=== PATIENT | male | born 1945 | race Caucasian/White ===

== ENCOUNTER 2022-12-13 08:57 | Outpatient (CLI) | payer MEDICARE, SELFPAY ==
--- NOTE | ~2022-12-13 | CT_ITS ---
EXAMINATION: CT soft tissue neck w con DATE: 12/13/2022 10:14 INDICATION: Squamous cell carcinoma of skin of scalp and neck. TECHNIQUE: Computed tomography (CT) of the neck was performed with 100 mL Omnipaque-350 intravenous c ontrast. Automated exposure control and iterative reconstruction technique were employed. The dose-le ngth product was 554.53 mGy-cm. COMPARISON: None FINDINGS: The visualized portions of the lung apices demonstrate peripheral septal thickening and beti undglass opacities. There are no pathologically enlarged lymph nodes. There is plaque in the proximal internal carotid arteries with 0% stenosis relative to normal distal artery lumen diameters. There a re likely changes of right ocular lens replacement surgery. There is moderate cervical spondylosis. T here are changes of anterior fusion procedure from C7 to T2. There are changes of posterior fusion pr ocedure from C4 to T3. Mediastinal wires are noted. IMPRESSION: 1. No evidence of metastatic disease. Reviewed, dictated and finalized at location A.
--- NOTE | ~2022-12-13 | CT_ITS ---
Pre and postcontrast Head CT History: Squamous cell carcinoma Technique: Axial imaging of the brain was performed prior to and following intravenous demonstration of 100 cc of Omnipaque 350 contrast material. Dose reduction technique was used on this scan by util izing automated exposure control and iterative reconstruction technique. The dose-length product (DLP ) was 1362.00 mGy-cm. Findings: There is no evidence of intracranial hemorrhage, mass lesion, or acute infarct. Brain par enchyma appears normal. The ventricles and subarachnoid spaces are normal in size. The calvarium ap pears normal. The visualized paranasal sinuses and mastoid air cells are clear. No abnormal postcontrast enhancement identified. Impression: No significant abnormality seen. Reviewed, dictated and finalized at [facility]. Impression: No significant abnormality seen.
[2022-12-13 09:57] LABS: Estimated Glomerular Filt Rate > 60
== END 2022-12-13 08:58 | disposition home or self-care (01) ==
DX: C44.42 Squamous cell carcinoma of skin of scalp and neck (principal)
CPT/HCPCS: 70470; 70491; Q9967

== ENCOUNTER 2022-12-29 03:17 | Inpatient (IN) | payer MEDICARE, SELFPAY ==
[2022-12-29] VITALS (12 sets, daily range): BP systolic 154–175; BP diastolic 72–104; PULSE 60–100; RESP 12–22; TEMP 36.3–37.1; O2SAT 92–97
--- NOTE | ~2022-12-29 | XR_ITS ---
EXAMINATION: XR ERCP DATE: 12/30/2022 14:01 INDICATION: Choledocholithiasis. TECHNIQUE: 2 spot fluoroscopic images of the right upper quadrant were obtained during endoscopic ret rograde cholangiopancreatography (ERCP). Fluoroscopy exposure time was 109 seconds. COMPARISON: CT abdomen and pelvis 12/29/2022 FINDINGS: The catheter is in the second portion of the duodenum. There is contrast opacification of t he common duct. There are stones in the common duct. IMPRESSION: 1. Choledocholithiasis. Please refer to the ERCP procedure note for additional details. Reviewed, dictated and finalized at location A.
--- NOTE | ~2022-12-29 | CT_ITS ---
CT of the Abdomen and Pelvis: Indication: Small bowel obstruction Technique: 2.5 mm axial scans were obtained through the abdomen and pelvis following intravenous adm inistration of 100 cc of Omnipaque 350. Dose reduction technique was used on this scan by utilizing a utomated exposure control and iterative reconstruction technique. The dose-length product (DLP) was 9 21.83 mGy-cm. Findings: Scans through the lung bases demonstrates subpleural reticulation and mild peripheral inte rstitial thickening, consistent mild chronic interstitial disease. There is a 6 mm pulmonary nodule a t the left lower lobe (axial image 15).. Multiple small hepatic cysts are present. There are numerous small radiodense gallstones. There are s mall radiodense gallstones at the distal common bile duct (axial images 72-76). There is minimal intr ahepatic biliary dilatation. Common bile duct measures 8 mm in diameter. There is minimal peripancrea tic inflammatory haziness. The spleen, adrenals and kidneys are within normal limits. There are ather osclerotic calcifications of the aorta. No lymphadenopathy. No bowel obstruction or bowel wall thickening. There is no evidence to suggest acute appendicitis. Si gmoid diverticulosis noted. Images through the pelvis were performed. Urinary bladder unremarkable. Prostate gland is mildly enla rged. No ascites. Impression: Cholelithiasis and choledocholithiasis, as detailed above. Probable associated mild acute gallstone pancreatitis. There is also minimal intrahepatic biliary dil atation is minimal prominence of the common bile duct. 6 mm left lower lobe pulmonary nodule. According to Fleischner Society criteria, for a low-risk patie nt, follow-up CT scan at 6-12 months recommended, then consider additional 18-[address] For a high -risk patient, follow-up CT scans at both 6-12 months and 18-24 months are recommended. Mild bibasilar chronic pulmonary interstitial disease. Reviewed, dictated and finalized at location M. Impression: Cholelithiasis and choledocholithiasis, as detailed above. Probable associated mild acute gallstone pancreatitis. There is also minimal in trahepatic biliary dilatation is minimal prominence of the common bile duct. 6 mm left lower lobe pulmonary nodule. According to Fleischner Society criteria , for a low-risk patient, follow-up CT scan at 6-12 months recommended, then co nsider additional 18-[address] For a high-risk patient, follow-up CT scans a t both 6-12 months and 18-24 months are recommended. Mild bibasilar chronic pulmonary interstitial disease.
[2022-12-29] MEDS: ONDANSETRON INJ 4 MG/2 ML VIAL IV PUSH (03:57)
[2022-12-29] MEDS: MORPHINE SULFATE (*CRX) 4 MG/ML INJ IV PUSH (03:57)
[2022-12-29] MEDS: SODIUM CHLORIDE 0.9% IV 1,000 ML 150 ML IV CONT (03:57)
[2022-12-29 04:03] LABS: Basophils Absolute Auto 0.1 K/mm3 (0.0-0.1); Basophils Percent Auto 0.6 % (0.2-1.2); Eosinophils Absolute Auto 0.1 K/mm3 (0-0.3); Eosinophils Percent Auto 1.3 % (0-4.4); Hematocrit 48.1 % (42.0-52.0); Hemoglobin 15.2 g/dL (14.0-18.0); Immature Granulocyte Absolute 0.04 K/mm3 (0.00-0.031); Immature Granulocyte Percent A 0.4 % (0-0.5); Lymphocytes Absolute Auto 2.04 K/mm3 (0.9-3.2); Lymphocytes Percent Auto 18.3 % (18.3-44.2); Mean Corpuscular HGB Conc 31.6 g/dl (32-36); Mean Corpuscular Hemoglobin 28.7 pg (26-34); Mean Corpuscular Volume 90.9 fl (80-100); Monocytes Absolute Auto 1.2 K/mm3 (0.1-0.6); Monocytes Percent Auto 10.5 % (2.6-8.5); Neutrophils Absolute Auto 7.7 K/mm3 (1.3-6.7); Neutrophils Percent Auto 68.9 % (45.5-73.1); Platelet Count Result 313 k/mm3 (150-375); Red Blood Count 5.29 M/mm3 (4.6-6.20); Red Cell Distribution Width 15.1 % (11.5-14.5); White Blood Count 11.2 K/mm3 (4.5-10.0)
[2022-12-29 04:15] LABS: Prothrombin Time 13.7 Seconds (11.1-14.7)
[2022-12-29 04:19] LABS: Lactic Acid Reflex 1.3 mmol/L (0.7-2.0)
[2022-12-29 04:33] LABS: Albumin Level 4.1 g/dL (3.5-5.1); Alkaline Phosphatase 357 U/L (38-126); Anion Gap 1 mmol/L (8-16); Bilirubin,Total 2.2 mg/dL (0.2-1.3); Blood Urea Nitrogen 18 mg/dL (9-20); Calcium 9.5 mg/dL (8.4-10.2); Carbon Dioxide 37 mmol/L (22-30); Chloride 103 mmol/L (98-107); Estimated CRCL calculation 68 ml/min; Estimated Glomerular Filt Rate > 60; Glucose 133 mg/dL (65-110); Potassium 4.1 mmol/L (3.4-5.0); Sodium 141 mmol/L (137-145)
[2022-12-29 04:36] LABS: Alanine Aminotransferase 878 U/L (6-50); Aspartate Amino Transferase 1053 U/L (17-59)
[2022-12-29 05:13] LABS: Lipase > 40000 U/L (23-300)
--- NOTE | 2022-12-29 05:38 | ED.ABDPAIN ---
HPI - Abdominal Pain General Chief Complaint: Abdominal Pain Stated Complaint: abd pain Time Seen by Provider: 12/29/22 03:36 Source: patient and family Mode of arrival: ambulatory Limitations: no limitations History of Present Illness HPI narrative: 77-year-old with a history of hypertension, AF on Eliquis, thoracic vertebrae surgery done in June 2022 in [place] presents here with complaints of upper abdominal pain which started about 4:30 PM last night. Patient states that over the past few months since he had his neck surgery he has been having intermittent upper abdominal pain which gets relieved with Pepcid however today his pain has been steady. No history of fever or chills. No history of any chest pain or shortness of breath. mentions that he gets most of his care in [place]. Patient's also mentioned he had a fever of 101 approximately 4 days ago which lasted for few hours. Pertinent past history: none Onset (ago): hour(s) (8) Pain Consistency: constant Location: epigastric, LUQ and RUQ Severity: severe Quality: cramping Radiation: none Migration to: no migration Exacerbating factors: eating Associated symptoms: denies other symptoms Related Data Home Medications Medication Instructions Recorded Confirmed apixaban 5 mg tablet (Eliquis) mg 12/29/22 metoprolol succinate 50 mg mg PO 12/29/22 tablet,extended release 24 hr pravastatin 20 mg tablet mg 12/29/22 12/29/22 Allergies Allergy/AdvReac Type Severity Reaction Status Date / Time No Known Allergies Allergy Verified 12/29/22 03:18 Review of Systems Review of Systems: All systems reviewed & are unremarkable except as noted in HPI and below Constitutional: Constitutional: Reports no additional constitutional complaints Eyes: Eyes: Reports no additional eye complaints ENT: Reports system reviewed and no additional complaints, except as documented Cardiovascular: Cardiovascular: Reports no additional cardiovascular complaints Respiratory: Respiratory: Reports no additional respiratory complaints Gastrointestinal: Gastrointestinal: Reports as per HPI Musculoskeletal: Musculoskeletal: Reports no additional musculoskeletal complaints Neurologic: Reports system reviewed and no additional complaints, except as documented Exam Narrative: GENERAL: Well-appearing, well-nourished, and in no acute distress. HEAD: Normocephalic, atraumatic. EYES: PERRLA and EOMI. ENT: Nares clear. Mucous membranes moist. NECK: Supple. CHEST: Clear to auscultation. No respiratory distress. HEART: Regular rate and rhythm. No murmur heard. Normal peripheral pulses. ABDOMEN: Soft, tender in the upper abdomen, nondistended, normal active bowel sounds. EXTREMITIES: Normal range of motion. No edema. SKIN: Warm, dry, no rash. NEURO: No focal deficits. Alert and oriented x3. PSYCH: Normal mood and affect. Course Course Emergency Course: 77-year-old presented with upper abdominal pain for the last 8 hours started after eating his dinner tender on examination he is in moderate amount of pain. Give him IV morphine for pain and Zofran for nausea obtain lab work his lipase is greater than 40,000 his liver enzymes are elevated CT shows obstructive gallstones. Discussed with Dr. Jackson, Dr. Casarez and Dr. Tierney. Informed patient and his about the lab work, CT findings agreeable for admission Vital Signs Vital signs: Vital Signs Temperature 36.3 C L 12/29/22 03:18 Pulse Rate 60 12/29/22 03:18 Respiratory Rate 20 12/29/22 03:18 Blood Pressure 154/104 H 12/29/22 03:18 Pulse Oximetry 96 12/29/22 03:18 Oxygen Delivery Room Air 12/29/22 03:18 Temperature 36.3 C L 12/29/22 03:18 Pulse Rate 96 12/29/22 06:23 Respiratory Rate 19 12/29/22 06:23 Blood Pressure 163/83 H 12/29/22 06:23 Pulse Oximetry 93 12/29/22 06:23 Oxygen Delivery Room Air 12/29/22 03:18 MDM - Abdominal Pain MDM Narrative Medical decision making
[2022-12-29] MEDS: PIPERACILLN/TAZ 3.375GM/NS50ML 3.375 GM/50 ML BAG IVPB ×3 (05:50→18:16)
--- NOTE | 2022-12-29 11:12 | PM.IMHP ---
H&P: HPI History of Present Illness Date/Time: 12/29/22 11:12 Chief Complaint: 77-year-old with a history of hypertension, AF on Eliquis, thoracic vertebrae surgery done in June 2022 in [place] presents here with complaints of upper abdominal pain which started about 4:30 PM last night.? Patient states that over the past few months since he had his neck surgery he has been having intermittent upper abdominal pain which gets relieved with Pepcid however today his pain has been steady.? No history of fever or chills.? No history of any chest pain or shortness of breath.? mentions that he gets most of his care in [place].? Patient's also mentioned he had a fever of 101 approximately 4 days ago which lasted for few hours. Review of Systems Review of Systems: 10 point ROS negative except as stated in HPI / Subjective PMFSH Social History Social History Smoking status: Former smoker Tobacco type: cigarettes Alcohol intake: current Drinks per week: 7 Substance use: never Lack of Transportation: No Lack of Food: Never True Current Housing: I Have Housing Concerned About Future Housing: No Difficulty Paying Gas/Electric Bills: No Difficulty Paying for Meds: No Currently Unemployed: No Education: Bachelor's Degree Difficulty w/ Childcare or Family Care: No Spiritual care concerns: No Meds Home Medications and Allergies Home Medications Medication Instructions Recorded Confirmed Type apixaban 5 mg tablet (Eliquis) 5 mg DAILY 12/29/22 12/29/22 History metoprolol succinate 50 mg 50 mg PO DAILY 12/29/22 12/29/22 History tablet,extended release 24 hr pravastatin 20 mg tablet 20 mg DAILY 12/29/22 12/29/22 History Allergies Allergy/AdvReac Type Severity Reaction Status Date / Time No Known Allergies Allergy Verified 12/29/22 03:18 Vital Signs Vital Signs - 24 hr 12/29/22 03:18 12/29/22 05:15 12/29/22 06:23 Temperature 97.3 F L Pulse Rate 60 99 96 Respiratory Rate 20 17 19 Blood Pressure 154/104 H 175/74 H 163/83 H Pulse Oximetry 96 97 93 Oxygen Delivery Room Air 12/29/22 07:18 12/29/22 08:00 06/01/23 09:08 Temperature 98.7 F Pulse Rate 100 97 Respiratory Rate 20 16 Blood Pressure 169/91 H 156/87 H Pulse Oximetry 93 94 93 Oxygen Delivery Room Air Exam Narrative: General: alert and oriented Psych: appropriate mood nad affect Eyes: PERRLA Neck: Trachea midline, no new lesions Skin: no changes Lungs: CTA Cardiac: Normal S1,S2, no MGR ABD: soft, nd, nt, nbs Ext: no new lesions, no cce Vasc: Pulses intact H&P: Results Labs Labs: Short CBC 12/29/22 Range/Units 03:56 WBC 11.2 H (4.5-10.0) K/mm3 Hgb 15.2 (14.0-18.0) g/dL Hct 48.1 (42.0-52.0) % Plt Count 313 (150-375) k/mm3 BMP 12/29/22 03:56 Sodium 141 Potassium 4.1 Chloride 103 Carbon Dioxide 37 H BUN 18 Creatinine 0.90 Glucose 133 H Calcium 9.5 Liver Function 12/29/22 Range/Units 03:56 Total Bilirubin 2.2 H (0.2-1.3) mg/dL AST 1053 H (17-59) U/L ALT 878 H (6-50) U/L Alkaline Phosphatase 357 H (38-126) U/L Albumin 4.1 (3.5-5.1) g/dL Assessment and Plan Assessment and plan (1) Choledocholithiasis with acute cholecystitis with obstruction: Code(s): K80.43 - Calculus of bile duct with acute cholecystitis with obstruction Status: Acute Assessment and Plan: appreciate gi and surgery input npo continue ivf pain control (2) Atrial fibrillation: Code(s): I48.91 - Unspecified atrial fibrillation Status: Acute Assessment and Plan: continue bb eliquis on hold
--- NOTE | 2022-12-29 11:25 | PM.CNGS ---
Assessment and Plan Assessment and plan (1) Acute pancreatitis due to calculus of common bile duct: Code(s): K85.10 - Biliary acute pancreatitis without necrosis or infection <Verito Humphreys SUPERVISOR [employer]ANDING - Last Filed: 12/29/22 14:36> Status: Acute <Verito BJace Humphreys, SUPERVISOR [employer]ANDING - Last Filed: 12/29/22 14:36> Assessment and Plan: Acute biliary pancreatitis with CT evidence of cholelithiasis and choledocholithiasis. Lipase >40k. Continue IV fluids, bowel rest, and analgesics as needed. Trend labs. Agree with GI consultation for possible ERCP. Discussed with the patient that he will eventually need a laparoscopic cholecystectomy, but timing of surgery depends on resolution of the pancreatitis and his overall progression for this hospitalization. <Verito Humphreys SUPERVIS[employer]ING - Last Filed: 12/29/22 14:36> (2) Cholelithiasis with choledocholithiasis: Code(s): K80.70 - Calculus of gallbladder and bile duct without cholecystitis without obstruction <Verito Stone Humphreys SUPERVISOR [employer]ANDING - Last Filed: 12/29/22 14:36> Status: Acute <Verito BJace Humphreys, SUPERVISOR [employer]ANDING - Last Filed: 12/29/22 14:36> (3) Transaminitis: Code(s): R74.01 - Elevation of levels of liver transaminase levels <Verito BJace Humphreys, SUPERVISOR [employer]ANDING - Last Filed: 12/29/22 14:36> Status: Acute <Verito BJace Humphreys, SUPERVISOR [employer]ANDING - Last Filed: 12/29/22 14:36> Assessment and Plan: Likely related to biliary obstruction from the choledocholithiasis. Trend labs. GI consulted. <Verito Stone Humphreys SUPERVIS[employer]ING - Last Filed: 12/29/22 14:36> (4) Atrial fibrillation: Code(s): I48.91 - Unspecified atrial fibrillation <Verito Stone Humphreys SUPERVIS[employer]ING - Last Filed: 12/29/22 14:36> Status: Acute <Verito BJace Humphreys, SUPERVIS[employer]ING - Last Filed: 12/29/22 14:36> (5) Anticoagulant long-term use: Code(s): Z79.01 - jail (current) use of anticoagulants <Verito العراقيRAFFI workman - Last Filed: 12/29/22 14:36> Status: Acute <Verito العراقيRAFFI workman - Last Filed: 12/29/22 14:36> Assessment and Plan: Hold Eliquis for now. <Verito العراقيRFAFI workman - Last Filed: 12/29/22 14:36> Assessment and Plan: I have discussed the patient's case and plan of care with Dr. Tierney. Thank you for allowing us to see the patient in consultation and we will continue to follow along with you. <Verito JohnJace العراقيRAFFI workman - Last Filed: 12/29/22 14:36> History of Present Illness Consult details Consult date: 12/29/22 <RAFFI Sinclair - Last Filed: 12/29/22 14:36> 12/29/22 <Hallie Tierney MD - Last Filed: 12/29/22 14:38> Reason for consult: gallstones (Acute biliary pancreatitis, choledocholithiasis) <Verito Ritter MalcomRAFFI workman - Last Filed: 12/29/22 14:36> Requesting physician: Saturnino Schmidt MD <RAFFI Sinclair - Last Filed: 12/29/22 14:36> Narrative: This is a 77-year-old man who presented to the ER early this morning with complaints of epigastric pain. The patient had thoracic surgery back in June of 2022. He was hospitalized in [place] for a few weeks following his 2 surgeries. About 2 months ago, he began to notice epigastric pain and heartburn intermittently. He he felt that the pain occurred after drinking liquids, but did not pay much attention to it if he had eaten food. The pain would typically subside spontaneously, but progressively got more frequent. He began taking Pepcid for his symptoms, which initially helped. Yesterday afternoon, he ate a fried egg and drink orange juice. Shortly after eating, he developed that same epigastric abdominal pain. His pain began to radiate up into his mid chest. The pain progressively worsened over the night. He attempted to vomit, but was only having dry heaves. His pain became unbearable and he was unable to sleep, therefore he came into the ER for further evaluation. Labs showed a lipase of greater than 40,000, total bilirubin 2.2, AST a 1053, ALT 878, alk-phos 357, white blood cell count [address]71. CT scan
[2022-12-29] MEDS: SODIUM CHLORIDE 0.9% IV 1,000 ML 125 ML IV CONT ×2 (12:27→22:33)
--- NOTE | 2022-12-29 15:21 | WPDGICN ---
Assessment and Plan Assessment and plan (1) Acute pancreatitis due to calculus of common bile duct: Code(s): K85.10 - Biliary acute pancreatitis without necrosis or infection Status: Acute Assessment and Plan: CT scan shows choledocholithiasis. The enzyme elevation support that etiology of pancreatitis. He does drink alcohol regularly, he likes a glass or 2 of wine and summer been most days of the week. He has never had alcohol related problem and had never had pancreatitis to his knowledge in the past. I discussed with him ERCP and how stones are removed from the common bile duct. I discussed the possible complications of bleeding or perforation or pancreatitis. He also knows that he has gallstones that will need to be addressed by surgery at some point (2) Anticoagulant long-term use: Code(s): Z79.01 - halfway (current) use of anticoagulants Status: Acute Assessment and Plan: he takes Eliquis chronically for atrial fibrillation. His last dose was yesterday. (3) Atrial fibrillation: Code(s): I48.91 - Unspecified atrial fibrillation Status: Acute Assessment and Plan: He has chronic atrial fibrillation. His ventricular rate is in the 90s. (4) Choledocholithiasis with acute cholecystitis with obstruction: Code(s): K80.43 - Calculus of bile duct with acute cholecystitis with obstruction Status: Acute Assessment and Plan: ERCP will be done tomorrow. I do not see a need for MRCP. (5) Transaminitis: Code(s): R74.01 - Elevation of levels of liver transaminase levels Status: Acute Assessment and Plan: I suspect that most of this elevation of enzymes is due to coli dough cholelithiasis. Time will tell and these will need to be observed. Given the fact that he drinks regularly there could be a a chronic elevation of some sort of these LFTs. Plan Hold Eliquis ERCP tomorrow GI Consult Note Consult date/time: 12/29/22 15:21 HPI: Rafael Santiago is a 77 year old male who presented to the emergency room this morning with abdominal pain and nausea. He states that he has been having episodes of indigestion ever since he had neck surgery about 6 months ago. He would get relief with Pepcid or occasionally with Tums. This time the pain did not subside and gradually increase. Is primarily pain in the epigastric area and left upper quadrant. he did also have a fever yesterday. Studies done in the emergency room revealed that he has a marked elevation of lipase could 40,000 also AST and ALT 53 again 8 78 respect bilirubin is 2.2 alkaline phosphatase is elevated as well. Among other things, his CT scan reveals: Multiple small hepatic cysts are present. There are numerous small radiodense gallstones. There are small radiodense gallstones at the distal common bile duct (axial images 72-76). There is minimal intrahepatic biliary dilatation. Common bile duct measures 8 mm in diameter. There is minimal peripancreatic inflammatory haziness. The spleen, adrenals and kidneys are within normal limits. There are atherosclerotic calcifications of the aorta.? No lymphadenopathy. No bowel obstruction or bowel wall thickening. There is no evidence to suggest acute appendicitis. Sigmoid diverticulosis noted. Review of Systems Review of Systems: All systems reviewed & are unremarkable except as noted in HPI and below PMFSH Past Medical History Medical History History of atrial fibrillation 1 episode of atrial fibrillation after having back surgery in June of 2022. Placed on Eliquis at that time. Hyperlipidemia Hypertension Surgical History Surgical History History of back surgery Social History Social History Smoking status: Former smoker Tobacco type: cigarettes Alcohol int
[2022-12-30] VITALS (14 sets, daily range): BP systolic 142–178; BP diastolic 73–107; PULSE 51–121; RESP 14–18; TEMP 36.1–36.8; O2SAT 93–100; BMI 32.5
[2022-12-30] MEDS: PIPERACILLN/TAZ 3.375GM/NS50ML 3.375 GM/50 ML BAG IVPB ×3 (00:32→17:27)
[2022-12-30] MEDS: SODIUM CHLORIDE 0.9% IV 1,000 ML 125 ML IV CONT ×2 (05:33→20:03)
[2022-12-30 06:40] LABS: Basophils Absolute Auto 0.1 K/mm3 (0.0-0.1); Basophils Percent Auto 0.7 % (0.2-1.2); Eosinophils Absolute Auto 0.2 K/mm3 (0-0.3); Eosinophils Percent Auto 2.2 % (0-4.4); Hematocrit 45.4 % (42.0-52.0); Hemoglobin 14.1 g/dL (14.0-18.0); Immature Granulocyte Absolute 0.04 K/mm3 (0.00-0.031); Immature Granulocyte Percent A 0.5 % (0-0.5); Lymphocytes Absolute Auto 1.27 K/mm3 (0.9-3.2); Lymphocytes Percent Auto 15.5 % (18.3-44.2); Mean Corpuscular HGB Conc 31.1 g/dl (32-36); Mean Corpuscular Hemoglobin 28.6 pg (26-34); Mean Corpuscular Volume 92.1 fl (80-100); Mean Platelet Volume 9.8 fl (7.4-10.4); Monocytes Percent Auto 11.6 % (2.6-8.5); Neutrophils Absolute Auto 5.7 K/mm3 (1.3-6.7); Neutrophils Percent Auto 69.5 % (45.5-73.1); Platelet Count Result 259 k/mm3 (150-375); Red Blood Count 4.93 M/mm3 (4.6-6.20); Red Cell Distribution Width 15.2 % (11.5-14.5); White Blood Count 8.2 K/mm3 (4.5-10.0)
[2022-12-30 06:58] LABS: Albumin Level 3.6 g/dL (3.5-5.1); Alkaline Phosphatase 311 U/L (38-126); Anion Gap 5 mmol/L (8-16); Aspartate Amino Transferase 448 U/L (17-59); Bilirubin,Total 2.7 mg/dL (0.2-1.3); Blood Urea Nitrogen 15 mg/dL (9-20); Calcium 8.2 mg/dL (8.4-10.2); Carbon Dioxide 31 mmol/L (22-30); Chloride 104 mmol/L (98-107); Estimated CRCL calculation 68 ml/min; Estimated Glomerular Filt Rate > 60; Glucose 100 mg/dL (65-110); Lipase 885 U/L (23-300); Potassium 3.7 mmol/L (3.4-5.0); Sodium 140 mmol/L (137-145)
[2022-12-30 07:12] LABS: Alanine Aminotransferase 848 U/L (6-50)
[2022-12-30] MEDS: METOPROLOL SUCCINATE EXT REL 50 MG TABCR PO (09:51)
--- NOTE | 2022-12-30 12:06 | WPDANESEPPF ---
Anes - Initial Pre Proc Eval Procedure: Operation Date: 12/30/22 12:30 Proposed Procedures p Endoscopic Retro Cholangiopancreatogram - Ra Jackson MD Date/Time: 12/30/22 12:06 Surgeon: Dari Casarez MD Pre Op Diagnosis: Choledocholithiasis w/ obstruction and acute hema Patient Data Age: 77 Gender: M Height: 1.75 m Weight: 100 kg Last Vital Signs Temp 97.6 F 12/30/22 11:13 Pulse 83 12/30/22 11:13 Resp 14 12/30/22 11:13 BP 144/107 H 12/30/22 11:13 Pulse Ox 96 12/30/22 11:13 O2 Del Method Room Air 12/29/22 22:26 Allergies Allergy/AdvReac Type Severity Reaction Status Date / Time No Known Allergies Allergy Verified 12/29/22 03:18 Home Medications Medication Instructions Recorded Confirmed Type apixaban 5 mg tablet (Eliquis) 5 mg DAILY 12/29/22 12/29/22 History metoprolol succinate 50 mg 50 mg PO DAILY 12/29/22 12/29/22 History tablet,extended release 24 hr pravastatin 20 mg tablet 20 mg DAILY 12/29/22 12/29/22 History Laboratory Tests 12/30/22 06:18 WBC 8.2 K/mm3 (4.5-10.0) RBC 4.93 M/mm3 (4.6-6.20) Hgb 14.1 g/dL (14.0-18.0) Hct 45.4 % (42.0-52.0) MCV 92.1 fl (80-100) MCH 28.6 pg (26-34) MCHC 31.1 L g/dl (32-36) RDW 15.2 H % (11.5-14.5) Plt Count 259 k/mm3 (150-375) MPV 9.8 fl (7.4-10.4) Immature Gran % (Auto) 0.5 % (0-0.5) Neut % (Auto) 69.5 % (45.5-73.1) Lymph % (Auto) 15.5 L % (18.3-44.2) Sullivan % (Auto) 11.6 H % (2.6-8.5) Eos % (Auto) 2.2 % (0-4.4) Baso % (Auto) 0.7 % (0.2-1.2) Lymph # (Auto) 1.27 K/mm3 (0.9-3.2) Sullivan # (Auto) 1.0 H K/mm3 (0.1-0.6) Eos # (Auto) 0.2 K/mm3 (0-0.3) Baso # (Auto) 0.1 K/mm3 (0.0-0.1) Abs Immat Gran (auto) 0.04 H K/mm3 (0.00-0.031) Absolute Neuts (auto) 5.7 K/mm3 (1.3-6.7) Absolute Nucleated RBC 0.0 K/mm3 (0.0-0.012) Nucleated RBC % 0.0 % (0.0-0.2) Sodium 140 mmol/L (137-145) Potassium 3.7 mmol/L (3.4-5.0) Chloride 104 mmol/L (98-107) Carbon Dioxide 31 H mmol/L (22-30) Anion Gap 5 L mmol/L (8-16) BUN 15 mg/dL (9-20) Creatinine 0.90 mg/dL (0.7-1.3) Estim Creat Clear Calc 68 ml/min Estimated GFR > 60 (59 - ) Glucose 100 mg/dL (65-110) Calcium 8.2 L mg/dL (8.4-10.2) Total Bilirubin 2.7 H mg/dL (0.2-1.3) AST 448 H U/L (17-59) ALT 848 H U/L (6-50) Alkaline Phosphatase 311 H U/L (38-126) Total Protein 7.0 g/dL (6.3-8.2) Albumin 3.6 g/dL (3.5-5.1) Lipase 885 H U/L (23-300) Patient hx anesthesia problems: none Family hx anesthesia problems: none Results Review: All pre-operative results and documents have been reviewed as part of the pre-operative evaluation. [facility] Past Medical History Medical History History of atrial fibrillation 1 episode of atrial fibrillation after having back surgery in June of 2022. Placed on Eliquis at that time. Hyperlipidemia Hypertension Surgical History Surgical History History of back surgery Social History Social History Smoking status: Former smoker Tobacco type: cigarettes Alcohol intake: current Drinks per week: 7 Substance use: never Lack of Transportation: No Lack of Food: Never True Current Housing: I Have Housing Concerned About Future Housing: No Difficulty Paying Gas/Electric Bills: No Difficulty Paying for Meds: No Currently Unemployed: No Education: Bachelor's Degree Difficulty w/ Childcare or Family Care: No Spiritual care concerns: No Anes - Eval Final PreProcedure Day of Procedure 12/30/22 12:06 Patient weight: obese Heart: regular rate and rhythm Lungs: clear to auscultation Airway: Mallampati scale class III (has de
--- NOTE | 2022-12-30 12:08 | PC.NURSE ---
To GI Lab per edward @ [id number], IV infusing NS. Report given to Lizzy.
[2022-12-30] MEDS: LACTATED RINGERS 1,000 ML 150 ML IV CONT (12:10)
--- NOTE | 2022-12-30 12:31 | PM.IMPN ---
Progress Note: A&P Assessment and Plan (1) Choledocholithiasis with acute cholecystitis with obstruction: Code(s): K80.43 - Calculus of bile duct with acute cholecystitis with obstruction Status: Acute Assessment and Plan: appreciate gi and surgery input Plan for ERCP Labs improving npo continue ivf pain control (2) Atrial fibrillation: Code(s): I48.91 - Unspecified atrial fibrillation Status: Acute Assessment and Plan: continue bb eliquis on hold Subjective Date/time seen: 12/30/22 12:31 Interval history: No complaints Exam Narrative: General: alert and oriented Psych: appropriate mood nad affect Eyes: PERRLA Neck: Trachea midline, no new lesions Skin: no changes Lungs: CTA Cardiac: Normal S1,S2, no MGR ABD: soft, nd, nt, nbs Ext: no new lesions, no cce Vasc: Pulses intact Objective Data Vital Signs Vital Signs: Vital Signs - 24 hr 12/29/22 14:00 12/29/22 16:00 12/29/22 20:00 Temperature 98.3 F 98.7 F Pulse Rate 62 62 78 Respiratory Rate 22 H 14 Blood Pressure 159/79 H 163/83 H Pulse Oximetry 93 95 Oxygen Delivery 12/29/22 20:00 12/29/22 23:52 12/29/22 22:26 Temperature 97.5 F L Pulse Rate 90 Respiratory Rate 12 Blood Pressure 171/72 H Pulse Oximetry 92 93 Oxygen Delivery Room Air Room Air 12/29/22 20:00 12/30/22 00:00 12/30/22 04:00 Temperature Pulse Rate 86 99 76 Respiratory Rate Blood Pressure Pulse Oximetry Oxygen Delivery 12/30/22 04:00 12/30/22 07:37 12/30/22 09:51 Temperature 96.9 F L 97.6 F Pulse Rate 76 57 L 100 Respiratory Rate 14 14 Blood Pressure 168/73 H 163/78 H Pulse Oximetry 95 98 Oxygen Delivery 12/30/22 11:13 12/30/22 09:51 12/30/22 12:06 Temperature 97.6 F 97.9 F Pulse Rate 83 83 51 L Respiratory Rate 14 18 Blood Pressure 144/107 H 165/74 H Pulse Oximetry 96 98 Oxygen Delivery Room Air Intake/Output Intake/Output: Intake & Output 12/27/22 12/28/22 12/29/22 12/30/22 23:59 23:59 23:59 23:59 Intake Total 0 1460 Balance 1930 1460 Meds/Results Medications: Active Medications Generic Name Dose Route Start Last Admin Trade Name Freq PRN Reason Stop Dose Admin Sodium Chloride 1,000 mls @ 125 mls/hr 12/29/22 05:55 12/30/22 05:33 Normal Saline Iv IV CONT 125 mls/hr .Q8H AMENA Administration Piperacillin/Tazobactam/Dextrose 3.375 gm in 50 mls @ 100 mls/hr 12/29/22 12:00 12/30/22 06:00 Zosyn 3.375 Gm/Ns 50 Ml IVPB Infused Q6H AMENA Infusion Lactated Ringer's 1,000 mls @ 150 mls/hr 12/30/22 11:35 12/30/22 12:10 Lr - Lactated Ringers Iv IV CONT 150 mls/hr .Q6H40M AMENA Administration Metoprolol Succinate 50 mg 12/30/22 09:00 12/30/22 09:51 Metoprolol Succinate Ext Rel 50 Mg Tabcr PO 50 mg DAILY AMENA Administration Morphine Sulfate 4 mg 12/29/22 05:53 Morphine Sulfate (*Crx) 4 Mg/Ml Inj IV PUSH Q2H PRN Pain Rated 7-10 Ondansetron HCl 4 mg 12/29/22 05:53 Ondansetron Inj 4 Mg/2 Ml Vial IV PUSH Q4H PRN Nausea Radiology Results: ITS Impressions Abdomen/Pelvis CT 12/29/22 05:55 Impression: Cholelithiasis and choledocholithiasis, as detailed above. Probable associated mild acute gallstone pancreatitis. There is also minimal intrahepatic biliary dilatation is minimal prominence of the common bile duct. 6 mm left lower lobe pulmonary nodule. According to Fleischner Society criteria, for a low-risk patient, follow-up CT scan at 6-12 months recommended, then consider additional 18-[address] For a high-risk patient, follow-up CT scans at both 6-12 months and 18-24 months are recommended. Mild bibasilar chronic pulmonary interstitial disease. Labs Labs: Laboratory Results - last 24 hr 12/30/22 06:18 WBC 8.2 RBC 4.93 Hgb 14.1 Hct 45.4 MCV 92.1 MCH 28.6 MCHC 31.1 L RDW 15.2 H Plt Count 259 MPV 9.8 Immature Gran % (Auto) 0.
[2022-12-30] MEDS: INDOMETHACIN 50 MG SUPP.RECT RECTAL (13:31)
[2022-12-30] MEDS: GLUCAGON FOR INJ 1 MG VIAL IM (13:43)
--- NOTE | 2022-12-30 15:34 | PM.PNGS ---
Progress Note: A&P Assessment and Plan (1) Acute pancreatitis due to calculus of common bile duct: Code(s): K85.10 - Biliary acute pancreatitis without necrosis or infection Status: Acute Assessment and Plan: s/p ERCP and stone removal, exam improved, labs improved, will need interval cholecystectomy (can be done as outpt) (2) Anticoagulant long-term use: Code(s): Z79.01 - [facility] (current) use of anticoagulants Status: Acute Assessment and Plan: ok to resume Eliquis if ok c GI and plan for interval hema as outpt Subjective Subjective Date/Time Seen: 12/30/22 15:34 Interval history: waking up for ERCP, report reviewed, feels ok Review of Systems Review of Systems: All systems reviewed & are unremarkable except as noted in HPI and below Exam Const: General: cooperative, comfortable and no acute distress Resp: Auscultation: clear to auscultation bilaterally Cardio: Rate: regular rate Rhythm: regular rhythm GI: Inspection: normal to inspection and distended GI Palp: Yes abdominal tenderness, Yes Soft to palpation, Yes Tenderness to palpation present (GI), No Guarding due to palpation present (GI) and No Rigid due to palpation Objective Data Vital Signs Vital Signs: Vital Signs - 24 hr 12/29/22 16:00 12/29/22 20:00 12/29/22 20:00 Temperature 37.1 C Pulse Rate 62 78 Respiratory Rate 14 Blood Pressure 163/83 H Pulse Oximetry 95 Oxygen Delivery Room Air Oxygen Flow Rate 12/29/22 23:52 12/29/22 22:26 12/29/22 20:00 Temperature 36.4 C L Pulse Rate 90 86 Respiratory Rate 12 Blood Pressure 171/72 H Pulse Oximetry 92 93 Oxygen Delivery Room Air Oxygen Flow Rate 12/30/22 00:00 12/30/22 04:00 12/30/22 04:00 Temperature 36.1 C L Pulse Rate 99 76 76 Respiratory Rate 14 Blood Pressure 168/73 H Pulse Oximetry 95 Oxygen Delivery Oxygen Flow Rate 12/30/22 07:37 12/30/22 09:51 12/30/22 11:13 Temperature 36.4 C 36.4 C Pulse Rate 57 L 100 83 Respiratory Rate 14 14 Blood Pressure 163/78 H 144/107 H Pulse Oximetry 98 96 Oxygen Delivery Oxygen Flow Rate 12/30/22 09:51 12/30/22 12:06 12/30/22 14:01 Temperature 36.6 C 36.8 C Pulse Rate 83 51 L 80 Respiratory Rate 18 18 Blood Pressure 165/74 H 142/82 H Pulse Oximetry 98 100 Oxygen Delivery Room Air Simple Face Mask Oxygen Flow Rate 4 12/30/22 14:11 12/30/22 14:21 12/30/22 14:30 Temperature Pulse Rate 85 86 80 Respiratory Rate 18 18 18 Blood Pressure 178/103 H 170/90 H 171/83 H Pulse Oximetry 97 100 97 Oxygen Delivery Simple Face Mask Room Air Room Air Oxygen Flow Rate 2 12/30/22 14:40 12/30/22 14:45 Temperature Pulse Rate 80 78 Respiratory Rate 18 18 Blood Pressure 160/105 H 146/98 H Pulse Oximetry 97 93 Oxygen Delivery Room Air Room Air Oxygen Flow Rate Intake/Output Intake/Output: Intake & Output 12/27/22 12/28/22 12/29/22 12/30/22 23:59 23:59 23:59 23:59 Intake Total 1929 1959 Balance 1929 1959 Meds/Results Medications: Active Medications Generic Name Dose Route Start Last Admin Trade Name Freq PRN Reason Stop Dose Admin Sodium Chloride 1,000 mls @ 125 mls/hr 12/29/22 05:55 12/30/22 05:33 Normal Saline Iv IV CONT 125 mls/hr .Q8H AMENA Administration Piperacillin/Tazobactam/Dextrose 3.375 gm in 50 mls @ 100 mls/hr 12/29/22 12:00 12/30/22 06:00 Zosyn 3.375 Gm/Ns 50 Ml IVPB Infused Q6H AMENA Infusion Metoprolol Succinate 50 mg 12/30/22 09:00 12/30/22 09:51 Metoprolol Succinate Ext Rel 50 Mg Tabcr PO 50 mg DAILY AMENA Administration Morphine Sulfate 4 mg 12/29/22 05:53 Morphine Sulfate (*Crx) 4 Mg/Ml Inj IV PUSH Q2H PRN Pain Rated 7-10 Ondansetron HCl 4 mg 12/29/22 05:53 Ondansetron Inj 4 Mg/2 Ml Vial IV PUSH Q4H PRN Nausea Radiology Results: ITS Impressions Abdomen/Pelvis CT 12/29/22 05:55 Impression: Cholelithiasis
--- NOTE | 2022-12-30 16:14 | PC.NURSE ---
Returned from [place] [id number]. Report received from SHAYY Gee.
--- NOTE | 2022-12-30 16:14 | PC.NURSE ---
Dr Crowe notified of patients return from GI lab. ADAT confirmed and discharge status pending at least one more day of enzyme monitoring per Dr. Crowe.
[2022-12-31] VITALS: BP 154/75; PULSE 73; PULSE 74; RESP 13; TEMP 36.2; O2SAT 96
[2022-12-31] MEDS: PIPERACILLN/TAZ 3.375GM/NS50ML 3.375 GM/50 ML BAG IVPB ×2 (01:00→04:58)
[2022-12-31 04:00] VITALS: BP 153/75; PULSE 102; PULSE 60; RESP 14; TEMP 36.2; O2SAT 97
[2022-12-31 08:00] VITALS: BP 150/75; PULSE 73; PULSE 90; RESP 14; TEMP 36.1; O2SAT 98
--- NOTE | 2022-12-31 08:31 | WPDANESPN ---
Anes - Prog Note Post-Op Date/Time: 12/31/22 08:31 Cardiovascular status: normal Respiratory status: normal Airway patency: baseline Mental status: baseline Post-Op hydration status: normal Vital Signs: Last Vital Signs Temp 36.1 C L 12/31/22 08:00 Pulse 73 12/31/22 08:00 Resp 14 12/31/22 08:00 BP 150/75 H 12/31/22 08:00 Pulse Ox 98 12/31/22 08:00 O2 Del Method Room Air 12/30/22 20:00 O2 Flow Rate 2 12/30/22 14:11 Pain Score (VAS): 08/09 I/O: Intake & Output 12/30/22 12/31/22 12/31/22 23:59 07:59 15:59 Intake Total 2250 550 Balance 2250 550 Laboratory Tests 12/30/22 06:18 12/31/22 08:19 Sodium Pending Potassium Pending Chloride Pending Carbon Dioxide Pending Anion Gap Pending BUN Pending Creatinine Pending Estim Creat Clear Calc Pending Estimated GFR Pending Glucose Pending Calcium Pending Total Bilirubin Pending AST Pending ALT Pending Alkaline Phosphatase Pending Total Protein Pending Albumin Pending Lipase Pending Post-procedural complaints: other (Little sore throat) Patient Feedback: Patient satisfied with anesthetic care.
[2022-12-31 08:45] VITALS: PULSE 86
[2022-12-31] MEDS: METOPROLOL SUCCINATE EXT REL 50 MG TABCR PO (08:45)
[2022-12-31 08:49] LABS: Alanine Aminotransferase 565 U/L (6-50); Albumin Level 3.6 g/dL (3.5-5.1); Alkaline Phosphatase 234 U/L (38-126); Anion Gap 5 mmol/L (8-16); Aspartate Amino Transferase 164 U/L (17-59); Bilirubin,Total 1.6 mg/dL (0.2-1.3); Blood Urea Nitrogen 13 mg/dL (9-20); Calcium 7.9 mg/dL (8.4-10.2); Carbon Dioxide 30 mmol/L (22-30); Chloride 103 mmol/L (98-107); Estimated CRCL calculation 86 ml/min; Estimated Glomerular Filt Rate > 60; Glucose 119 mg/dL (65-110); Lipase 293 U/L (23-300); Potassium 4.1 mmol/L (3.4-5.0); Sodium 138 mmol/L (137-145)
[2022-12-31] MEDS: APIXABAN 5 MG TABLET BY MOUTH (09:20)
--- NOTE | 2022-12-31 09:33 | WPDGIPROGNO ---
Progress Note: A&P Assessment and Plan (1) Cholelithiasis with choledocholithiasis: Code(s): K80.70 - Calculus of gallbladder and bile duct without cholecystitis without obstruction Status: Acute Assessment and Plan: successful ercp with removal stone no more pain will need interval lap hema as outpatient ok to go home hold eliquis for 5 days since he had sphincterotomy (2) Acute pancreatitis due to calculus of common bile duct: Code(s): K85.10 - Biliary acute pancreatitis without necrosis or infection Status: Acute Assessment and Plan: no more pain (3) Atrial fibrillation: Code(s): I48.91 - Unspecified atrial fibrillation Status: Acute (4) Anticoagulant long-term use: Code(s): Z79.01 - [employer] (current) use of anticoagulants Status: Acute (5) Transaminitis: Code(s): R74.01 - Elevation of levels of liver transaminase levels Status: Acute Subjective Date/time seen: 12/31/22 09:33 Interval history: ercp yesterday with sphincterotomy and removal of stone, pain is gone and tolerated diet, no nausea and he is feeling like going home today Review of Systems Review of Systems: All systems reviewed & are unremarkable except as noted in HPI and below Exam Const: General: comfortable and no acute distress HENMT: Face/Nose/Sinus: Normal nares present Eyes: General: appearance normal, both eyes and all related structures Neck: Neck: no JVD Resp: Auscultation: clear to auscultation bilaterally Cardio: Rate: regular rate Rhythm: regular rhythm GI: Inspection: non-distended GI Palp: Yes Soft to palpation and No Guarding due to palpation present (GI) Auscultation: normal bowel sounds Skin: General skin exam: normal color Neuro: Speech: normal speech Motor exam (neuro): 5/5 motor strength present throughout Extrem: General: normal to inspection Psych: Mental Status: mental status grossly normal Objective Data Vital Signs Vital Signs: Vital Signs - 24 hr 12/30/22 09:51 12/30/22 11:13 12/30/22 09:51 Temperature 97.6 F Pulse Rate 100 83 83 Respiratory Rate 14 Blood Pressure 144/107 H Pulse Oximetry 96 Oxygen Delivery Oxygen Flow Rate 12/30/22 12:06 12/30/22 14:01 12/30/22 14:11 Temperature 97.9 F 98.3 F Pulse Rate 51 L 80 85 Respiratory Rate 18 18 18 Blood Pressure 165/74 H 142/82 H 178/103 H Pulse Oximetry 98 100 97 Oxygen Delivery Room Air Simple Face Mask Simple Face Mask Oxygen Flow Rate 4 2 12/30/22 14:21 12/30/22 14:30 12/30/22 14:40 Temperature Pulse Rate 86 80 80 Respiratory Rate 18 18 18 Blood Pressure 170/90 H 171/83 H 160/105 H Pulse Oximetry 100 97 97 Oxygen Delivery Room Air Room Air Room Air Oxygen Flow Rate 12/30/22 14:45 12/30/22 16:00 12/30/22 16:00 Temperature 97.2 F L Pulse Rate 78 52 L 87 Respiratory Rate 18 17 Blood Pressure 146/98 H 160/85 H Pulse Oximetry 93 99 Oxygen Delivery Room Air Oxygen Flow Rate 12/30/22 20:00 12/30/22 20:00 12/30/22 20:00 Temperature 97.6 F Pulse Rate 121 H 78 Respiratory Rate 14 Blood Pressure 149/73 H Pulse Oximetry 97 Oxygen Delivery Room Air Oxygen Flow Rate 12/31/22 00:00 12/31/22 00:00 12/31/22 04:00 Temperature 97.1 F L Pulse Rate 74 73 102 H Respiratory Rate 13 Blood Pressure 154/75 H Pulse Oximetry 96 Oxygen Delivery Oxygen Flow Rate 12/31/22 04:00 12/31/22 08:00 12/31/22 08:45 Temperature 97.1 F L 97 F L Pulse Rate 60 73 86 Respiratory Rate 14 14 Blood Pressure 153/75 H 150/75 H Pulse Oximetry 97 98 Oxygen Delivery Oxygen Flow Rate Intake/Output Intake/Output: Intake & Output 12/28/22 12/29/22 12/30/22 12/31/22 23:59 23:59 23:59 23:59 Intake Total 1930 4210 550 Balance 1930 4210 550 Meds/Results Medications: Active Medications Generic Name Dose Route Start Last Admin Trade Name Freq PRN Reason Stop Dose Admin Apixab
--- NOTE | 2022-12-31 11:57 | PM.PNGS ---
Progress Note: A&P Assessment and Plan (1) Acute pancreatitis due to calculus of common bile duct: Code(s): K85.10 - Biliary acute pancreatitis without necrosis or infection Status: Acute Assessment and Plan: Pancreatitis resolved. ERCP successful and no postprocedure pancreatitis. Patient is fine to be discharged today from our standpoint. He should call the office Monday and make an appointment to see Dr. Argueta this week. Outpatient laparoscopic cholecystectomy will be arranged after the office visit. (2) Atrial fibrillation: Code(s): I48.91 - Unspecified atrial fibrillation Status: Chronic Assessment and Plan: Okay to discharge on his Eliquis. Subjective Subjective Date/Time Seen: 12/31/22 11:57 Patient reports: no new complaints, feels better, tolerating a regular diet and afebrile Interval history: Wants to go home Review of Systems Review of Systems: All systems reviewed & are unremarkable except as noted in HPI and below (HPI) Exam Const: General: comfortable and no acute distress Orientation/consciousness: patient oriented x3 GI: Inspection: normal to inspection and non-distended GI Palp: Yes Soft to palpation, No Tenderness to palpation present (GI), No Guarding due to palpation present (GI), Yes No hepatosplenomegaly present, No Hernia present, No Palpable mass present and No Rebound tenderness present Neuro: General: patient oriented x3 and no focal motor deficits Extrem: General: no calf tenderness and no edema Psych: Affect: normal affect Insight: Good insight present (Psych) Judgement: Good judgement present (Psych) Objective Data Vital Signs Vital Signs: Vital Signs - 24 hr 12/30/22 12:06 12/30/22 14:01 12/30/22 14:11 Temperature 36.6 C 36.8 C Pulse Rate 51 L 80 85 Respiratory Rate 18 18 18 Blood Pressure 165/74 H 142/82 H 178/103 H Pulse Oximetry 98 100 97 Oxygen Delivery Room Air Simple Face Mask Simple Face Mask Oxygen Flow Rate 4 2 12/30/22 14:21 12/30/22 14:30 12/30/22 14:40 Temperature Pulse Rate 86 80 80 Respiratory Rate 18 18 18 Blood Pressure 170/90 H 171/83 H 160/105 H Pulse Oximetry 100 97 97 Oxygen Delivery Room Air Room Air Room Air Oxygen Flow Rate 12/30/22 14:45 12/30/22 16:00 12/30/22 16:00 Temperature 36.2 C L Pulse Rate 78 52 L 87 Respiratory Rate 18 17 Blood Pressure 146/98 H 160/85 H Pulse Oximetry 93 99 Oxygen Delivery Room Air Oxygen Flow Rate 12/30/22 20:00 12/30/22 20:00 12/30/22 20:00 Temperature 36.4 C Pulse Rate 121 H 78 Respiratory Rate 14 Blood Pressure 149/73 H Pulse Oximetry 97 Oxygen Delivery Room Air Oxygen Flow Rate 12/31/22 00:00 12/31/22 00:00 12/31/22 04:00 Temperature 36.2 C L Pulse Rate 74 73 102 H Respiratory Rate 13 Blood Pressure 154/75 H Pulse Oximetry 96 Oxygen Delivery Oxygen Flow Rate 12/31/22 04:00 12/31/22 08:00 12/31/22 08:45 Temperature 36.2 C L 36.1 C L Pulse Rate 60 73 86 Respiratory Rate 14 14 Blood Pressure 153/75 H 150/75 H Pulse Oximetry 97 98 Oxygen Delivery Oxygen Flow Rate 12/31/22 08:00 Temperature Pulse Rate 90 Respiratory Rate Blood Pressure Pulse Oximetry Oxygen Delivery Oxygen Flow Rate Intake/Output Intake/Output: Intake & Output 12/28/22 12/29/22 12/30/22 12/31/22 23:59 23:59 23:59 23:59 Intake Total 1930 4210 1030 Balance 1930 4210 1030 Meds/Results Medications: Active Medications Generic Name Dose Route Start Last Admin Trade Name Freq PRN Reason Stop Dose Admin Apixaban 5 mg 12/31/22 09:00 12/31/22 09:20 Apixaban 5 Mg Tablet BY MOUTH 5 mg DAILY AMENA Administration Sodium Chloride 1,000 mls @ 125 mls/hr 12/29/22 05:55 12/30/22 20:03 Normal Saline Iv IV CONT 125 mls/hr .Q8H AMENA Administration Piperacillin/Tazobactam/Dextrose 3.375 gm in 50 mls @ 100 mls/hr 12/29/22 12:00 12/31/22 04:58 Zosyn 3.375 Gm/Ns 50 Ml IVP
--- NOTE | 2022-12-31 12:03 | P.DS_ITS ---
DS: Admitting Diagnosis Discharge Date December 31, 2022 Admitting Diagnosis Choledocholithiasis DS: Discharge Diagnosis Discharge Diagnosis (1) Choledocholithiasis with acute cholecystitis with obstruction: Code(s): K80.43 - Calculus of bile duct with acute cholecystitis with obstruction Status: Acute Assessment and Plan: appreciate gi and surgery input Plan for ERCP Labs improving npo continue ivf pain control (2) Atrial fibrillation: Code(s): I48.91 - Unspecified atrial fibrillation Status: Chronic Assessment and Plan: continue bb eliquis on hold DS: Summary Hospital Course Hospital Course: Patient was admitted for choledocholithiasis. ERCP with stone extraction. Will need outpatient follow-up with surgery for cholecystectomy. Anticoagulation on hold until he follows up with General surgery. Time Spent with Patient Time attestation: Total time spent providing and/or coordinating discharge services: Exam Narrative: General: alert and oriented Psych: appropriate mood nad affect Eyes: PERRLA Neck: Trachea midline, no new lesions Skin: no changes Lungs: CTA Cardiac: Normal S1,S2, no MGR ABD: soft, nd, nt, nbs Ext: no new lesions, no cce Vasc: Pulses intact DS: Data Data Completed and Pending Labs on day of discharge: Labs from last 24 hours 12/31/22 08:19 Sodium 138 Potassium 4.1 Chloride 103 Carbon Dioxide 30 Anion Gap 5 L BUN 13 Creatinine 0.70 Estim Creat Clear Calc 86 Estimated GFR > 60 Glucose 119 H Calcium 7.9 L Total Bilirubin 1.6 H AST 164 H ALT 565 H Alkaline Phosphatase 234 H Total Protein 7.0 Albumin 3.6 Lipase 293 Discharge Plan Discharge Attending physician on discharge: Brandon Crowe Consulting providers: Ra Jackson; Hallie Tierney Discharging Clinician: Brandon Crowe Patient Disposition: Home, Self-Care Activity: as tolerated Diet: heart healthy and low fat Discharge Instructions: GENERAL SURGERY DISCHARGE INSTRUCTIONS * Call Dr. Tierney's office on Monday and make appointment for f/u visit this week to discuss cholecystectomy Patient Instructions: Antibiotic Form Stand Alone Forms: General Discharge Information Follow-up/Referrals: Hallie Tierney MD [Physician] - 1 Week (Call Dr. Tierney's office on Monday to arrange follow-up appointment for this week.) Ra Jackson MD [Physician] - Discharge Medications: Continued metoprolol succinate 50 mg tablet extended release 24 hr 50 mg PO DAILY pravastatin 20 mg tablet 20 mg DAILY Held Eliquis 5 mg tablet 5 mg DAILY Hold Instructions: Resume on 01/05/23. Date of admission: 12/29/22 05:53 Primary Care Provider: PHYSICIAN NOT ON STAFF,NONSTAFF Admitting Provider: Dari Casarez Attending physician on admission: Dari Casarez Condition: Improved
== END 2022-12-31 12:45 | disposition home or self-care (01) | DRG 439 ==
LOC: ANHED 05:50 → ANH3MEDSUR 07:20
PROVIDERS: Internal Medicine Gastroenterology; Admitting Provider Internal Medicine; Emergency Provider Family Medicine; Visit Provider Chiropractor
PROC: 0FC98ZZ Extirpation of Matter from Common Bile Duct, Via Natural or Artificial Opening Endoscopic (ICD-10-PCS; CPT 43260; principal; 2022-12-30 12:30)
DX: K85.10 Biliary acute pancreatitis without necrosis or infection (principal); K80.43 Calculus of bile duct with acute cholecystitis with obstruction; E78.5 Hyperlipidemia, unspecified; I10 Essential (primary) hypertension; I48.91 Unspecified atrial fibrillation; R91.1 Solitary pulmonary nodule; Z79.01 Long term (current) use of anticoagulants; Z87.891 Personal history of nicotine dependence
CPT/HCPCS: 36415; 74177; 74329; 80053; 83605; 83690; 85025; 85610; 96365; 96375; 99285; A9270; J0330; J1610; J2270; J2405; J2543; J2704; J7030; J7120; Q9967

== ENCOUNTER 2023-02-09 10:01 | Outpatient (CLI) | payer MEDICARE, SELFPAY ==
[2023-02-09 11:06] LABS: Alanine Aminotransferase 54 U/L (6-50); Albumin Level 3.7 g/dL (3.5-5.1); Alkaline Phosphatase 66 U/L (38-126); Amylase 75 U/L (30-110); Aspartate Amino Transferase 33 U/L (17-59); Bilirubin,Total 0.5 mg/dL (0.2-1.3)
== END 2023-02-09 10:02 | disposition home or self-care (01) ==
LOC: ANHSURGERY 10:10
PROVIDERS: Visit Provider Surgery
DX: K80.50 Calculus of bile duct without cholangitis or cholecystitis without obstruction (principal)
CPT/HCPCS: 36415; 80076; 82150; 86850; 86900; 86901

== ENCOUNTER 2023-02-13 02:55 | Day surgery (SDC) | payer MEDICARE, SELFPAY ==
[2023-02-08 12:46] VITALS: BMI 29.5
--- NOTE | 2023-02-08 13:05 | PC.NURSE ---
PRE-OP INSTRUCTIONS, PLEASE READ CAREFULLY Report to the Outpatient Waiting Room, entrance under the green pavilion located off [facility], at time _1000_ on date _02/13/23_. Planned Procedure Time: _1200_. Time changes happen often and if your time is changed the preop area will call you the afternoon before. - You and your visitor will be asked to self-screen and do not enter if you have any COVID symptoms. - A mask is optional within the hospital at this time. Patients may have clear liquids (water, carbonated beverages, clear teas, apple juice) until 3 hours prior to surgery (0900 AM) with a maximum of 20 ounces. - No food from midnight until time of surgery Take the following medications with a SIP of water the morning of surgery: _METOPROLOL_ DO NOT STOP ANY OF YOUR OTHER PRESCRIPTION MEDICATIONS PRIOR TO SURGERY ?EXCEPT THE FOLLOWING Medications per physician _DECREASE ASPIRIN TO 81 MG OF TODAY UNTIL DAY OF SURGERY_ CALL DR. COMER'S OFFICE TO CONFIRM SINCE LESS THAN A WEEK PRIOR TO YOUR SURGERY Please no make-up, nail peruvian, hairspray, perfume, deodorant, or body powder the day of surgery. No jewelry (including any body piercings) or valuables the day of surgery, leave them at home. Please take a shower or bath the night before, or the morning of, surgery with an antibacterial soap. Wear comfortable, loose fitting clothing. - Jewelry must be removed prior to entering the operating room. Rings and piercings that are not removed may be cut off. - The hospital will not accept responsibility for valuables. - Please leave all valuables, including medications, at home the day of surgery. If you are going home after surgery, a licensed truck driver's offsider must drive you home. - NO public transportation without another adult if you receive anesthesia. - We recommend that an adult stay with you for 24 hours following discharge. - We also recommend that you do not drive, make important decision, drink alcoholic beverages, or take any drugs that were not prescribed by your health care provider for at least 24 hours after your discharge time. Follow any additional instructions given to you from your surgeon. If you or anyone in your household have experienced Covid symptoms in the past week, please notify your surgeon or the nurse liaison at the phone number below for possible testing. Telephone instructions given to _PATIENT__and asked if any additional questions and then verbalized understanding. Patient advised to call surgeon office or pre surgery nurse liaison [phone] if any additional questions.
[2023-02-13] VITALS (10 sets, daily range): BP systolic 136–179; BP diastolic 76–88; PULSE 60–90; RESP 14–18; TEMP 36.2–36.4; O2SAT 94–100
--- NOTE | 2023-02-13 11:00 | P.PNAN_ITS ---
Anes - Initial Pre Proc Eval Procedure: Operation Date: 02/13/23 12:00 Proposed Procedures p Laparoscopic Cholecystectomy - Hallie Tierney MD Date/Time: 02/13/23 11:00 Surgeon: Hallie Tierney MD Pre Op Diagnosis: CHOLEDOCHOLITHICSIS Patient Data Age: 77 Gender: M Height: 1.75 m Weight: 90.9 kg Allergies Allergy/AdvReac Type Severity Reaction Status Date / Time No Known Allergies Allergy Verified 02/08/23 12:43 Home Medications Medication Instructions Recorded Confirmed Type metoprolol succinate 50 mg 50 mg PO DAILY 12/29/22 02/08/23 History tablet,extended release 24 hr ramipril 10 mg capsule 10 mg PO DAILY 01/18/23 02/08/23 History aspirin 325 mg tablet,delayed 325 mg PO DAILY 02/02/23 02/08/23 History release Patient hx anesthesia problems: none Family hx anesthesia problems: none Results Review: All pre-operative results and documents have been reviewed as part of the pre- operative evaluation. [facility] Past Medical History Medical History History of atrial fibrillation 1 episode of atrial fibrillation after having back surgery in June of 2022. Placed on Eliquis at that time. Hyperlipidemia Hypertension Surgical History Surgical History History of back surgery Social History Social History Smoking packs per day: 1 Smoking cigarettes per day: 20.0 Years smoked: 12 Smoking pack-years: 12.00 Smoking status: Former smoker Tobacco type: cigarettes Second hand tobacco smoke exposure: No Smoking end date: 07/31/78 Alcohol intake: current Drinks per week: 7 Substance use: never Substance use type: does not use Lack of Transportation: No Lack of Food: Never True Current Housing: I Have Housing Concerned About Future Housing: No Difficulty Paying Gas/Electric Bills: No Difficulty Paying for Meds: No Currently Unemployed: No Education: Bachelor's Degree Difficulty w/ Childcare or Family Care: No Living arrangements: with family Spiritual care concerns: No Anes - Eval Final PreProcedure Day of Procedure 02/13/23 11:00 Patient weight: overweight Heart: regular rate and rhythm Lungs: clear to auscultation Airway: Mallampati scale class II Neurological: alert and oriented Last oral intake: >/= 8 hours ASA classification: III Emergent: no Anesthetic plan: proceed Anesthesia type and monitoring: general ETT and standard monitoring Results Review: All pre-operative results and documents have been reviewed as part of the pre- operative evaluation. Informed Consent: The patient's anesthetic plan and its attendant risks and benefits were discussed with the patient/family/POA. Questions were solicited and answers provided to the satisfaction of the patient/family/POA.
[2023-02-13] MEDS: ACETAMINOPHEN 500 MG TABLET 1000 MG PO (11:45)
[2023-02-13] MEDS: KETOROLAC 15 MG/ML VIAL (*BKC) IV PUSH (11:45)
[2023-02-13] MEDS: LACTATED RINGERS 1,000 ML 30 ML IV CONT ×2 (11:45→14:00)
--- NOTE | 2023-02-13 12:02 | WPDHPUPDATE1 ---
History and Physical Update Update Date/Time: 02/13/23 12:02 History and Physical has been reviewed, including an updated exam of the patient. There are NO changes in the patient's condition. Risks, benefits, and alternatives have been discussed and questions answered. Patient agrees to proceed with procedure.
[2023-02-13] MEDS: ceFAZolin 2 GM/D5W 50 ML 2 GM/50 ML BAG IVPB (12:14)
[2023-02-13] MEDS: BUPIVACAINE/EPINEPHRINE 0.5% 10 ML VIAL 30 ML INFILTRATE (12:48)
--- NOTE | 2023-02-13 13:29 | W.PM.PROC2 ---
Procedure Note - Detailed Date of Procedure 02/13/23 Pre-op Diagnosis Chronic cholecystitis, choledocholithiasis Post-op Diagnosis Same Procedure Performed Laparoscopic cholecystectomy Surgeon Hallie Tierney MD Anesthesia General Indications 77-year-old male initially presenting with biliary pancreatitis, choledocholithiasis, chronic cholecystitis. Patient is subsequently underwent ERCP and now set up for interval cholecystectomy Findings cholecystitis, cholelithiasis Description of Procedure The patient was taken to the operating room placed in the supine position. After adequate induction of general anesthesia, the patient was prepped and draped in normal sterile fashion. A time-out was then performed to verify the patient's identity as well as the procedure being performed. I then made a 5 mm incision in the infraumbilical region. Through this, a Veress needle was placed into the peritoneal cavity and CO2 gas was then insufflated. After adequate pneumoperitoneum was achieved, the Veress needle was removed and a 5 mm optiview trocar was placed through this incision under direct visualization. I then placed the laparoscope through this trocar site and under direct visualization placed a further 12 mm subxiphoid port as well as 2 additional 5 mm ports in the right upper abdomen. The gallbladder was then identified and was noted to be inflamed, distended, and full of gallstones. There was noted to be a significant amount of omental adhesions to the gallbladder and these were taken down both bluntly and sharply with the cautery. I was able to place a grasper at the dome of the gallbladder and this was retracted anterior and cephalad up over the liver. A 2nd retractor was then placed at the infundibulum and retracted laterally, this allowed visualization of the triangle of Calot. I then was able to visualize the cystic duct in its entirety from its proximal insertion into the gallbladder, to its distal junction with the common hepatic/common bile duct junction. At this point, I carefully skeletonized the proximal cystic duct with the [place] dissector. I then clipped and transected the proximal cystic duct. Next I visualized the cystic artery. Again the artery was skeletonized, clipped, and transected. I then used the Bovie cautery to take down the peritoneal attachments of the gallbladder off the liver bed. This was somewhat difficult given the amount of inflammation in the posterior space. Once the gallbladder specimen was completely detached, an endo-pouch was placed through the 12 mm port site. I then placed the gallbladder specimen into the Endo pouch and removed the endo-pouch from the 12 mm port site. The specimen will now be sent to pathology for further review. I then copiously irrigated the right upper quadrant. Some mild oozing was noted in the liver bed and this was controlled with the bovie cautery. I then placed some hemostatic powder in the liver bed. Hemostasis was noted in the liver bed, the clips were noted to be in good position on both the cystic duct stump and the cystic artery stump. No other pathology was noted in the right upper quadrant. I then moved the laparoscope to the subxiphoid port. No iatrogenic injury or other pathology was noted in the lower abdomen. I then closed the 12 mm trocar site under direct visualization using the Ifeanyi cone and 0 Vicryl suture. At this point, the abdomen was desufflated and all ports removed. All port sites were then closed with 4.O Monocryl subcuticular sutures. Dermabond was placed on each incision. The patient tolerated the procedure well, was extubated in the operating room postoperative and will be transferred to the recovery room in stable condition Estimated Blood Loss 20 Drains No Packing No Pathology Yes Complications No immediate complications Condition Stable Disposition PACU [facility] Billing Surgery - Charge Forward: Surgery Billing
[2023-02-13] MEDS: fentaNYL CITRATE INJ (*CRX) 100 MCG/2 ML VIAL 25 MCG IV PUSH ×4 (13:41→14:16)
== END 2023-02-13 15:20 | disposition home or self-care (01) ==
PROVIDERS: Visit Provider Surgery
PROC: 0FT44ZZ Resection of Gallbladder, Percutaneous Endoscopic Approach (ICD-10-PCS; CPT 47562; principal; 2023-02-13 12:00)
DX: K80.44 Calculus of bile duct with chronic cholecystitis without obstruction (principal); E78.5 Hyperlipidemia, unspecified; Z79.82 Long term (current) use of aspirin; Z87.891 Personal history of nicotine dependence
CPT/HCPCS: 47562; 88304; A9270; J0330; J0690; J1100; J1885; J2405; J2704; J2710; J3010; J7120

== ENCOUNTER 2023-12-29 07:25 | Inpatient (IN) | payer MEDICARE, SELFPAY ==
[2023-12-29] VITALS (11 sets, daily range): BP systolic 121–152; BP diastolic 57–80; PULSE 92–127; RESP 16–25; TEMP 36.3–38.8; O2SAT 93–99; BMI 30.4
--- NOTE | ~2023-12-29 | CT_ITS ---
EXAMINATION: CT guide absc cath placement DATE: 12/29/2023 13:08 INDICATION: Right subphrenic abscess. TECHNIQUE: The procedure including the risks, benefits, and alternatives was discussed with the patie nt. Risks discussed included bleeding and infection. The patient understood the risks and benefits an d agreed to proceed. The skin overlying the right chest was prepped and draped in usual sterile fashi on. Anesthetic was administered with 1% lidocaine subcutaneously. An 18 gauge trochar needle was ins erted into the right subphrenic abscess with CT guidance. The needle was exchanged over a wire for 6 [place], 8 [place], and 9 [place] dilators and then for an 8.5 [place] pigtail catheter. The catheter was stitched to the skin, and a sterile dressing was applied. The mA was adjusted according to patient s ize. Iterative reconstruction technique was employed. The dose-length product was 288.53 mGy-cm. Ther e were no immediate complications. FINDINGS: CT images demonstrate the catheter within the right subphrenic abscess. 5 mL fluid was aspi rated for testing. IMPRESSION: 1. Successful CT-guided right subphrenic abscess drainage. 2. 5 mL opaque, duong fluid was sent for aerobic and anaerobic cultures. Reviewed, dictated and finalized at location A.
--- NOTE | ~2023-12-29 | CT_ITS ---
EXAMINATION: CTA chest PE protocol DATE: 12/31/2023 06:05 CDT INDICATION: Increased heart rate. Elevated d-dimer. TECHNIQUE: Computed tomographic angiography (CTA) of the chest was performed with 100 mL Omnipaque-35 0 intravenous contrast. The dose-length product was 666.77 mGy-cm. Maximum intensity projection 3D-re constructions of the aorta and other arteries were constructed by the technologist on a separate work station. COMPARISON: None. FINDINGS: Heart size normal. Small pleural effusions. No central pulmonary embolism. Evaluation of th e peripheral pulmonary arteries somewhat limited due to motion. Status post median sternotomy. There are surgical changes consistent with cervical thoracic fusion. Mild mediastinal lymphadenopathy, like ly reactive. There are multiple low-density lesions in the liver, most likely benign cysts. There are changes of cholecystectomy. There is a geographic area of hypovascularity in the right hepatic lobe posteriorly measuring approximately 7.7 x 3.9 x 4.6 cm with involvement of the posterior hepatic lobe . There is a contiguous pigtail catheter and perihepatic space posteriorly. Small sliding hiatal maria isabel ia. There is a 6 mm minor fissural nodule in the right. There are small left lower lobe nodules measu ring 5 mm greatest dimension. There is dependent atelectasis. There is interlobular septal thickening with subpleural groundglass opacities. Mild interstitial edema or atypical pneumonia are not exclude d. No endobronchial lesions. IMPRESSION: 1. Decreased size of upper abdominal abscess centered posterior to the liver involving the posterior margin of the right hepatic lobe. There is a pre-existing pigtail catheter in the perihepatic space. 2: No large central pulmonary embolism. 3: Subpleural groundglass opacities with interlobular septal thickening and small pleural effusions. Consider mild edema or atypical pneumonia. 4: Small pulmonary nodules measuring 6 mm or less. Recommend follow-up CT chest in 6 months. Reviewed, dictated and finalized at location B. IMPRESSION: 1. Decreased size of upper abdominal abscess centered posterior to the liver in volving the posterior margin of the right hepatic lobe. There is a pre-existing pigtail catheter in the perihepatic space. 2: No large central pulmonary embolism. 3: Subpleural groundglass opacities with interlobular septal thickening and sma ll pleural effusions. Consider mild edema or atypical pneumonia. 4: Small pulmonary nodules measuring 6 mm or less. Recommend follow-up CT chest in 6 months.
--- NOTE | ~2023-12-29 | CT_ITS ---
EXAMINATION: CT abdomen pelvis w con DATE: 12/29/2023 09:05 INDICATION: Right lower quadrant abdominal pain. Fever. TECHNIQUE: Computed tomography (CT) of the abdomen and pelvis was performed with 100 mL Omnipaque 350 intravenous contrast. Automated exposure control and iterative reconstruction technique were employe d. The dose-length product was 935.63 mGy-cm. COMPARISON: CT abdomen and pelvis 12/29/2022 FINDINGS: The visualized portions of the lung bases demonstrate stable chronic interstitial lung dise ase. Again seen are 5 mm and 4 mm nodules in left lower lobe, likely benign. There is a trace right p leural effusion. The heart size is normal. There are coronary artery calcifications. No pericardial e ffusion. There are cysts in the liver measuring up to 2.9 cm. There are changes of cholecystectomy. T here is a 8.7 x 5.4 x 4.0 cm abscess posterior to the liver with involvement of the adjacent aspect o f right hepatic lobe. High attenuation foci in the abscess are likely dropped gallstones. The spleen, pancreas, adrenal glands, and left kidney are normal. There are cysts in right kidney measuring up t o 15 mm. The prostate is mildly enlarged. There is diverticulosis of the colon without evidence of di verticulitis. The appendix is normal. There is a small sliding hiatal hernia. There are no pathologic ally enlarged lymph nodes. There is no free intraperitoneal fluid. There is calcified atherosclerosis of the aorta and many of the other arteries. There is prominent fat in the inguinal canals that may be hernias. There is severe lumbar spondylosis. IMPRESSION: 1. 8.7 x 5.4 x 4.0 cm abscess centered posterior to the liver with involvement of the posterior aspec t of right hepatic lobe. Reviewed, dictated and finalized at location A. IMPRESSION: 1. 8.7 x 5.4 x 4.0 cm abscess centered posterior to the liver with involvement of the posterior aspect of right hepatic lobe.
--- NOTE | 2023-12-29 07:34 | ECG_ITS ---
[facility] [address] Test Date: 2023-12-29 Pat Name: Rafael Santiago Department: Room: Gender: M Acute Care Physician: : 1945 Requested By: Saturnino Schmidt Order Number: [id number] Seth MD: Jose Webb D.O. Measurements Intervals [place] Rate: 127 P: 40 MS: 143 QRS: 10 QRSD: 79 T: 35 QT: 291 QTc: 424 Interpretive Statements SINUS TACHYCARDIA DELAYED PRECORDIAL R/S TRANSITION ABNORMAL ECG No previous ECG available for comparison Electronically Signed On 12-29-2023 09:27:23 CDT by Jose Webb D.O.
[2023-12-29 08:31] LABS: Basophils Absolute Auto 0.1 K/mm3 (0.0-0.1); Basophils Percent Auto 0.3 % (0.2-1.2); Eosinophils Percent Auto 0.3 % (0-4.4); Hemoglobin 14.3 g/dL (14.0-18.0); Immature Granulocyte Absolute 0.07 K/mm3 (0.00-0.031); Immature Granulocyte Percent A 0.5 % (0-0.5); Lymphocytes Absolute Auto 0.79 K/mm3 (0.9-3.2); Lymphocytes Percent Auto 5.4 % (18.3-44.2); Mean Corpuscular HGB Conc 32.5 g/dl (32-36); Mean Corpuscular Hemoglobin 29.6 pg (26-34); Mean Corpuscular Volume 91.1 fl (80-100); Mean Platelet Volume 9.6 fl (7.4-10.4); Monocytes Absolute Auto 1.5 K/mm3 (0.1-0.6); Neutrophils Absolute Auto 12.2 K/mm3 (1.3-6.7); Neutrophils Percent Auto 83.5 % (45.5-73.1); Platelet Count Result 377 k/mm3 (150-375); Red Blood Count 4.83 M/mm3 (4.6-6.20); Red Cell Distribution Width 13.5 % (11.5-14.5); White Blood Count 14.6 K/mm3 (4.5-10.0)
[2023-12-29] MEDS: ACETAMINOPHEN 325 MG TABLET 650 MG PO ×2 (08:32→14:05)
[2023-12-29] MEDS: SODIUM CHLORIDE 0.9% IV 1,000 ML 150 ML IV CONT (08:33)
[2023-12-29 08:41] LABS: Lactic Acid Reflex 0.8 mmol/L (0.7-2.0)
[2023-12-29 08:42] LABS: Alanine Aminotransferase 26 U/L (6-50); Alkaline Phosphatase 70 U/L (38-126); Anion Gap 7 mmol/L (4-12); Aspartate Amino Transferase 35 U/L (17-59); Blood Urea Nitrogen 18 mg/dL (9-20); Calcium 8.6 mg/dL (8.4-10.2); Carbon Dioxide 25 mmol/L (22-30); Chloride 102 mmol/L (98-107); Estimated CRCL calculation 66 ml/min; Estimated Glomerular Filt Rate > 60; Glucose 132 mg/dL (65-110); Sodium 134 mmol/L (137-145)
[2023-12-29 08:44] LABS: Appearance Urine Cloudy (Clear); Bacteria Urine None Seen /hpf; Bilirubin Urine Negative (Negative); Blood Urine 2+ (Negative); Color Urine Dark Yellow (Yellow); Glucose Urine UA Negative (Negative); Hyaline Casts Urine Present /lpf; Ketones Urine Trace mg/dL (Negative); Leukocyte Esterase Ur Negative LEU/UL (Negative); Need Manual Microscopic Reviewed; Nitrate Urine Negative (Negative); Protein Urine 1+ mg/dL (Negative); Specific Grav Ur 1.021 (1.001-1.035); Squamous Epithelial Cell Urine None Seen /hpf (Few); WBC Urine 0-5 /hpf (0-3); pH Urine 5.5 (5.0-9.0)
[2023-12-29 08:46] LABS: Add Urine Microscopic? YES
--- NOTE | 2023-12-29 09:25 | ECG_ITS ---
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 Measurements Intervals [place] Rate: 104 P: 0 [place]: 0 QRS: 9 QRSD: 82 T: 20 QT: 330 QTc: 435 Interpretive Statements SINUS TACHYCARDIA FREQUENT ATRIAL PREMATURE COMPLEXES ABNORMAL ECG Compared to ECG 12/29/2023 07:37:22 FREQUENT ATRIAL PREMATURE COMPLEXES NOW PRESENT Electronically Signed On 12-29-2023 09:30:03 CDT by Jose Webb D.O.
[2023-12-29 10:49] LABS: INR 1.2; Prothrombin Time 15.3 Seconds (11.1-14.7)
--- NOTE | 2023-12-29 11:35 | WPDCN ---
Assessment and Plan Assessment and plan (1) Hx of acute cholecystitis: Code(s): Z87.19 - Personal history of other diseases of the digestive system Status: Acute Assessment and Plan: Has a history of a laparoscopic cholecystectomy done about [address] Tierney. In the last year he has been doing very well and had no issues. (2) Abscess, subdiaphragmatic: Code(s): K65.1 - Peritoneal abscess Status: Acute Assessment and Plan: Patient has had right shoulder pain as well as some right upper quadrant abdominal pain and fevers for the past [address] scan shows a right subphrenic abscess posterior to the right lobe of the liver. We will need to be drained I have discussed this with the radiologist. Plan on performing IR directed CT-guided placement of an into the abscess cavity today. I did discuss with the patient that the high attenuation material in the abscess cavity likely represents some gallstones. If after the abscess is drained and the infection resolved he has recurrent infections in this area that he may need to have operative management to remove the gallstones. He understands. (3) Anticoagulant long-term use: Code(s): Z79.01 - assisted (current) use of anticoagulants Status: Acute Assessment and Plan: Patient is on Eliquis for atrial fibrillation. His rate is controlled. He has not taken his Eliquis for over 24hours. We will continue to hold for now until his drain is placed. (4) Atrial fibrillation: Qualifiers: Atrial fibrillation type: unspecified Qualified Code(s): I48.91 - Unspecified atrial fibrillation Code(s): I48.91 - Unspecified atrial fibrillation Status: Chronic Assessment and Plan: Rate controlled on medications. He is on Eliquis for systemic anticoagulation. [facility] Data of Consult Date/Time: 12/29/23 11:35 Primary Care Provider: UNKNOWN,DOCTOR Consult Narrative Reason for consult: Right subphrenic abscess Narrative: Rafael Santiago is a 78 year old male who underwent a laparoscopic cholecystectomy for acute cholecystitis approximately [address] Tierney . During hospitalization he also had common bile duct stone which had to be removed as well. He has been doing well up until last 7 to 10 days when he started having some vague abdominal pain associated with some right shoulder pain and thought he was having issues with his usual chronic constipation. Her last 24 to 48 hours started having some fevers as well. He generally has felt somewhat poor over the last several days. In the emergency room he was hemodynamically stable. CT scan abdomen pelvis was performed showing a right subphrenic abscess posterior to the right lobe of the liver. There were some high attenuation material within the abscess cavity suggestive of possible gallstones. No other significant abdominal pathology was seen on CT scan which would cause the symptoms. He is on Eliquis for AFib but is not taking his Eli[place] today[place] [id number]. Liver enzymes were all normal. Review of Systems Review of Systems: The remainder of the review of systems to include constitutional, HEENT, cardiovascular, respiratory, GI, , integumentary, musculoskeletal, endocrine, immunologic, hematologic, psychiatric, and neurologic are all negative except for which is mentioned above in the HPI. [facility] Past Medical History Medical History History of atrial fibrillation 1 episode of atrial fibrillation after having back surgery in June of 2022. Placed on Eliquis at that time. Hyperlipidemia Hypertension Surgical History Surgical History History of back surgery S/P laparoscopic cholecystectomy 02/13/23 Social History Social History
--- NOTE | 2023-12-29 11:58 | ED.GENADULT ---
HPI - General Adult General Chief complaint: Fever Stated complaint: fever Time Seen by Provider: 12/29/23 07:40 Source: patient Mode of arrival: ambulatory Limitations: no limitations History of Present Illness HPI narrative: 78-year-old with a history of hypertension, hyperlipidemia status post T1 disc surgery done in [place], status post cholecystectomy here with a complaint of right-sided abdominal pain for past 10 days since last night he has been having a fever of 101-104. He denies any nausea or vomiting. Also complains of being constipated. No previous history of diverticulosis or diverticulitis. Onset (ago): day(s) (10) Radiation: non-radiation Quality: aching Pain Consistency: constant Relieving factors: none Exacerbating factors: none Associated symptoms: fever/chills Related Data Home Medications Medication Instructions Recorded Confirmed metoprolol succinate 50 mg 50 mg PO DAILY 12/29/22 05/04/23 tablet,extended release 24 hr ramipril 10 mg capsule 10 mg PO DAILY 01/18/23 05/04/23 aspirin 325 mg tablet,delayed 325 mg PO DAILY 02/02/23 05/04/23 release Allergies Allergy/AdvReac Type Severity Reaction Status Date / Time No Known Allergies Allergy Verified 12/29/23 07:41 Review of Systems Review of Systems: All systems reviewed & are unremarkable except as noted in HPI and below Constitutional: Constitutional: Reports no additional constitutional complaints Eyes: Eyes: Reports no additional eye complaints ENT: Reports system reviewed and no additional complaints, except as documented Cardiovascular: Cardiovascular: Reports no additional cardiovascular complaints Respiratory: Respiratory: Reports no additional respiratory complaints Gastrointestinal: Gastrointestinal: Reports as per HPI Musculoskeletal: Musculoskeletal: Reports no additional musculoskeletal complaints Integumentary/Breasts: Skin/Breast: Reports system reviewed and no additional complaints, except as docu Neurologic: Reports system reviewed and no additional complaints, except as documented Psychiatric: Psychiatric: Reports no additional psychiatric complaints Endocrine: Endocrine: Reports no additional endocrine complaints Hematologic/Lymphatic: Hematologic/Lymphatic: Reports no additional hematologic/lymphatic complaints [facility] Past Medical History Medical History History of atrial fibrillation 1 episode of atrial fibrillation after having back surgery in June of 2022. Placed on Eliquis at that time. Hyperlipidemia Hypertension Surgical History Surgical History History of back surgery S/P laparoscopic cholecystectomy 02/13/23 Social History Social History Smoking packs per day: 1 Smoking cigarettes per day: 20.0 Years smoked: 12 Smoking pack-years: 12.00 Smoking status: Former smoker Tobacco type: cigarettes Second hand tobacco smoke exposure: No Smoking end date: 07/31/78 Alcohol intake: current Drinks per week: 7 Substance use: never Substance use type: does not use Lack of Transportation: No Lack of Food: Never True Current Housing: I Have Housing Concerned About Future Housing: No Difficulty Paying Gas/Electric Bills: No Difficulty Paying for Meds: No Currently Unemployed: No Education: Bachelor's Degree Difficulty w/ Childcare or Family Care: No Living arrangements: with family Spiritual care concerns: No Exam Narrative: GENERAL: Well-appearing, well-nourished, and in no acute distress. HEAD: Normocephalic, atraumatic. EYES: PERRLA and EOMI. ENT: Nares clear, no rhinorrhea or epistaxis. Mucous membranes moist. NECK: Supple. CHEST: Clear to auscultation. No respiratory distress. HEART: Regular rate and rhythm. No murmur heard. Normal peripheral pulses. ABDOMEN: Soft, mild tende
[2023-12-29] MEDS: PIPERACILLN/TAZ 3.375GM/NS50ML 3.375 GM/50 ML BAG IVPB ×3 (12:15→23:35)
--- NOTE | 2023-12-29 13:43 | ADMGEN ---
This patient, Rafael Santiago, was admitted to IMU Room 205-02. Patient/family oriented to hospital policies and general routines including ID bracelet, bed and alarms, visiting hours, pain management, procedures, bathroom and other care routines, personal items, smoking policy, room service/diet, and visiting hours. Information on how to activate the Rapid Response Team has been discussed. Patient/Family are encouraged to report perceived risks to care and to ask questions if they do not understand what they are told or what they should do.
[2023-12-29] MEDS: metroNIDAZOLE 500 MG/ISO 100ML 500 MG/100 ML BAG 100 MG IVPB (13:45)
--- NOTE | 2023-12-29 13:57 | PM.IMHP ---
H&P: HPI History of Present Illness Date/Time: 12/29/23 13:57 Chief Complaint: Fever, right upper quadrant pain Narrative: This is an 78-year-old male patient who was admitted to the hospital for subdiaphragmatic abscess right upper quadrant near the liver. Patient had a cholecystectomy [address] Argueta at this facility. About 2 weeks ago patient started to complain of right shoulder pain so he made an appointment that is upcoming with Orthopedics. About 1 week ago patient began low-grade fevers around 100? daily then overnight he had a 103 fever with chills. Throughout this time he has had right upper quadrant abdominal pain and right shoulder pain. In the emergency department white blood cell count elevated at 14.6, platelets 377, sodium 134. CT scan of the abdomen pelvis showed 8.7 x 5.4 x 4.0 cm abscess centered posterior to the liver with involvement of the posterior aspect of the right hepatic lobe. Surgery was consulted and Interventional Radiology consulted for drainage with drain placement. Patient has a past medical history of hypertension, periodically atrial fibrillation that was discovered when he underwent neck surgery but then was absent when he wore a Holter monitor. Patient also has history of chronic constipation and he takes a dose of Linzess approximately 1 out of every 3 days in order to have more complete bowel movement. Review of Systems Review of Systems: All systems reviewed & are unremarkable except as noted in HPI and below PMFSH Past Medical History Medical History History of atrial fibrillation 1 episode of atrial fibrillation after having back surgery in June of 2022. Placed on Eliquis at that time. Hyperlipidemia Hypertension Surgical History Surgical History History of back surgery S/P laparoscopic cholecystectomy 02/13/23 Social History Social History Smoking packs per day: 1 Smoking cigarettes per day: 20.0 Years smoked: 12 Smoking pack-years: 12.00 Smoking status: Former smoker Tobacco type: cigarettes Second hand tobacco smoke exposure: No Smoking end date: 07/31/78 Alcohol intake: current Drinks per week: 10 Substance use: never Substance use type: does not use Do You Feel Safe in your Home?: Yes Lack of Transportation: No Lack of Food: Never True Current Housing: I Have Housing Concerned About Future Housing: No Difficulty Paying Gas/Electric Bills: No Difficulty Paying for Meds: No Currently Unemployed: No Education: Master's Degree or Higher Difficulty w/ Childcare or Family Care: No Living arrangements: with family Spiritual care concerns: No Meds Home Medications and Allergies Home Medications Medication Instructions Recorded Confirmed Type metoprolol succinate 50 mg 50 mg PO DAILY 12/29/22 12/29/23 History tablet,extended release 24 hr ramipril 10 mg capsule 10 mg PO DAILY 01/18/23 12/29/23 History apixaban 5 mg tablet (Eliquis) 5 mg PO BID 12/29/23 12/29/23 History atorvastatin 20 mg tablet 10 mg PO DAILY 12/29/23 12/29/23 History linaclotide 72 mcg capsule 72 mcg PO DAILY 12/29/23 12/29/23 History (Linzess) Allergies Allergy/AdvReac Type Severity Reaction Status Date / Time No Known Allergies Allergy Verified 12/29/23 07:41 Vital Signs Vital Signs - 24 hr 12/29/23 07:26 12/29/23 10:28 12/29/23 12:24 Temperature 38.8 C H Pulse Rate 127 H 98 98 Respiratory Rate 18 25 H 16 Blood Pressure 121/67 147/57 H Pulse Oximetry 98 93 99 Oxygen Delivery Room Air 12/29/23 13:25 Temperature 38.2 C H Pulse Rate 102 H Respiratory Rate 20 Blood Pressure 152/74 H Pulse Oximetry 96 Oxygen Delivery Exam Narrative: GENERAL: Appears younger than stated age, awake alert no acute distress HEAD: Normocephal
[2023-12-29] MEDS: SODIUM CHLORIDE 0.9% IV 1,000 ML 100 ML IV CONT (14:15)
[2023-12-29] MEDS: METOPROLOL SUCCINATE EXT REL 50 MG TABCR PO (14:56)
[2023-12-29] MEDS: LINACLOTIDE 145 MCG CAPSULE PO (15:45)
[2023-12-29] MEDS: SENNA/DOCUSATE SODIUM TABLET 1 TAB PO (21:27)
[2023-12-29] MEDS: APIXABAN 5 MG TABLET PO (21:27)
[2023-12-29] MEDS: HYDROcodone/acetaminophen (*CRX) 5-325 MG TABLET 1 TAB PO (21:29)
[2023-12-30] VITALS (19 sets, daily range): BP systolic 126–144; BP diastolic 42–88; PULSE 53–112; RESP 12–18; TEMP 36.3–37.5; O2SAT 91–95
[2023-12-30] MEDS: HYDROmorphone HCL INJ (*CRX) 1 MG/ML SYR 0.5 MG IV PUSH (00:51)
[2023-12-30] MEDS: SODIUM CHLORIDE 0.9% IV 1,000 ML 100 ML IV CONT (00:52)
[2023-12-30 04:27] LABS: Basophils Absolute Auto 0.1 K/mm3 (0.0-0.1); Basophils Percent Auto 0.4 % (0.2-1.2); Eosinophils Percent Auto 0.1 % (0-4.4); Hematocrit 39.3 % (42.0-52.0); Hemoglobin 12.5 g/dL (14.0-18.0); Immature Granulocyte Absolute 0.06 K/mm3 (0.00-0.031); Immature Granulocyte Percent A 0.4 % (0-0.5); Lymphocytes Absolute Auto 0.72 K/mm3 (0.9-3.2); Lymphocytes Percent Auto 5.3 % (18.3-44.2); Mean Corpuscular HGB Conc 31.8 g/dl (32-36); Mean Corpuscular Hemoglobin 29.3 pg (26-34); Mean Corpuscular Volume 92.3 fl (80-100); Mean Platelet Volume 9.5 fl (7.4-10.4); Monocytes Absolute Auto 1.3 K/mm3 (0.1-0.6); Monocytes Percent Auto 9.8 % (2.6-8.5); Neutrophils Absolute Auto 11.5 K/mm3 (1.3-6.7); Platelet Count Result 353 k/mm3 (150-375); Red Blood Count 4.26 M/mm3 (4.6-6.20); Red Cell Distribution Width 13.6 % (11.5-14.5); White Blood Count 13.7 K/mm3 (4.5-10.0)
[2023-12-30 04:44] LABS: Alanine Aminotransferase 30 U/L (6-50); Albumin Level 3.4 g/dL (3.5-5.1); Alkaline Phosphatase 66 U/L (38-126); Anion Gap 4 mmol/L (4-12); Aspartate Amino Transferase 38 U/L (17-59); Bilirubin,Total 0.9 mg/dL (0.2-1.3); Blood Urea Nitrogen 15 mg/dL (9-20); Carbon Dioxide 25 mmol/L (22-30); Chloride 103 mmol/L (98-107); Estimated CRCL calculation 65 ml/min; Estimated Glomerular Filt Rate > 60; Glucose 119 mg/dL (65-110); Potassium 4.1 mmol/L (3.4-5.0); Sodium 132 mmol/L (137-145)
[2023-12-30] MEDS: PIPERACILLN/TAZ 3.375GM/NS50ML 3.375 GM/50 ML BAG IVPB ×3 (06:00→17:49)
[2023-12-30] MEDS: SENNA/DOCUSATE SODIUM TABLET 1 TAB PO (08:27)
[2023-12-30] MEDS: ATORVASTATIN 10 MG TABLET PO (08:28)
[2023-12-30] MEDS: LINACLOTIDE 72 MCG CAPSULE PO (08:28)
[2023-12-30] MEDS: METOPROLOL SUCCINATE EXT REL 50 MG TABCR PO (08:28)
[2023-12-30] MEDS: APIXABAN 5 MG TABLET PO ×2 (08:28→19:54)
[2023-12-30] MEDS: ramipriL 5 MG CAPSULE 10 MG PO (08:28)
--- NOTE | 2023-12-30 09:13 | PM.IMPN ---
Progress Note: A&P Assessment and Plan (1) Abscess, subdiaphragmatic: Code(s): K65.1 - Peritoneal abscess Status: Acute Assessment and Plan: Right shoulder right upper quadrant pain and fever for 7-10 days Abscess posterior to the liver on CT imaging Status post IR drainage with pigtail drain in place Continue IV Zosyn Cultures in process Per surgical note, abscess may contain gallstones and require subsequent surgical intervention 12/29: IR drain placed yesterday Cultures pending Continue Zosyn WBC has improved. 13.7 today down from 14.6 Afebrile, blood pressure stable, ranging 111-105 Telemetry ordered. Patient is running AFib in the 100s with PACs. (2) Anticoagulant long-term use: Code(s): Z79.01 - long term care phlebotomist (current) use of anticoagulants Status: Acute Assessment and Plan: Patient is on Eliquis for atrial fibrillation with elevated chads Vasc score He has not had Eliquis for least 24 hours prior to procedure Restarted evening dose 12/28 (3) Atrial fibrillation: Qualifiers: Atrial fibrillation type: unspecified Qualified Code(s): I48.91 - Unspecified atrial fibrillation Code(s): I48.91 - Unspecified atrial fibrillation Status: Chronic Assessment and Plan: 1 prior episode of atrial fibrillation when he underwent neck surgery Bedside monitoring appears to be atrial fibrillation borderline tachycardic rate of 105 Patient had not received metoprolol yet today so this was given postprocedure with improvement in rate 12/29: Continue metoprolol 50 mg daily. May need to titrate up (4) Hypertension: Qualifiers: Hypertension type: primary hypertension Qualified Code(s): I10 - Essential (primary) hypertension Code(s): I10 - Essential (primary) hypertension Status: Acute Assessment and Plan: Blood pressure reviewed on 12/28, stable Continue home medications (5) Hyperlipidemia: Code(s): E78.5 - Hyperlipidemia, unspecified Status: Acute Assessment and Plan: Continue low-dose atorvastatin which is a home medication (6) Hx of acute cholecystitis: Code(s): Z87.19 - Personal history of other diseases of the digestive system Status: Acute Assessment and Plan: History of laparoscopic cholecystectomy [address] Tierney at this facility Plan Patient was admitted to IMU status post IR drainage, can likely downgrade Surgery consulting, Zosyn and pain medications ordered by Dr. Katz Pigtail drain in place Feeding: Heart healthy diet Analgesia: Tylenol, Dilaudid, [place] Thromboembolic prophylaxis: Eliquis Bowel regimen: Linzess Lines: PIV Antibiotics: Zosyn Disposition: Continue with medical care Subjective Date/time seen: 12/30/23 09:13 Interval history: This is an 78-year-old male patient who was admitted to the hospital for subdiaphragmatic abscess right upper quadrant near the liver.? Patient had a cholecystectomy [address] Argueta at this facility.? About 2 weeks ago patient started to complain of right shoulder pain so he made an appointment that is upcoming with Orthopedics.? About 1 week ago patient began low-grade fevers around 100? daily then overnight he had a 103 fever with chills.? Throughout this time he has had right upper quadrant abdominal pain and right shoulder pain.? In the emergency department white blood cell count elevated at 14.6, platelets 377, sodium 134.? CT scan of the abdomen pelvis showed 8.7 x 5.4 x 4.0 cm abscess centered posterior to the liver with involvement of the posterior aspect of the right hepatic lobe.? 12/29: Patient is seen resting in bed. He appears well and not in acute distress. He states that he has some abdominal tenderness where his IR drain was placed but it is improved since yesterday. IR drainage is purulence with old bloody drainage. He does not think he had a fever overnight. He is able to tolerate a diet and denies na
--- NOTE | 2023-12-30 12:00 | ADMGEN ---
This patient, Rafael Santiago, was admitted to [facility] Surg Room 310-01 @ 1200. Patient/family oriented to hospital policies and general routines including ID bracelet, bed and alarms, visiting hours, pain management, procedures, bathroom and other care routines, personal items, smoking policy, room service/diet, and visiting hours. Information on how to activate the Rapid Response Team has been discussed. Patient/Family are encouraged to report perceived risks to care and to ask questions if they do not understand what they are told or what they should do.
--- NOTE | 2023-12-30 12:46 | PC.NURSE ---
This patient, Rafael Santiago, was transferred to [facility] on 12/30/23 at 1200 via wheelchair without issue with spouse at side. Personal belongings sent with patient. Report given to SHAYY Gonsalves. Appropriate documentation sent with patient.
--- NOTE | 2023-12-30 13:40 | WPDPN ---
Progress Note: A&P Assessment and Plan (1) Abscess, subdiaphragmatic: Code(s): K65.1 - Peritoneal abscess Status: Acute Assessment and Plan: Patient had right subdiaphragmatic abscess drained yesterday. He feels better now. Culture results on the abscess fluid are pending. Will keep him on Zosyn for right now. White blood cell count is decreasing he has no longer had any fever since admission. Continue supportive management. Repeat CT scan with IV contrast Monday and if the abscess has resolved and his white blood cell count continues to decrease or normalizes then can likely remove the catheter and then discharge him home with a course of oral antibiotics for another 10 to 14 days. We continue to hold his Eliquis until he is discharged home. SCDs and Lovenox for DVT prophylaxis for now. Subjective Date/time seen: 12/30/23 13:40 Interval history: Patient feels much better today. His right shoulder pain is now gone after CT-guided pigtail drain placed into the right subphrenic abscess in Radiology yesterday. He is tolerating regular diet without difficulty. No fevers or chills. He is sitting up in a chair. No shortness of breath or any chest pain. Exam GI: Other: Abdomen is soft and nondistended. Catheter site is dressed. Output from the catheter is bloody serous drainage. No pus. Objective Data Vital Signs Vital Signs: Vital Signs - 24 hr 12/29/23 14:00 12/29/23 14:56 12/29/23 16:00 Temperature 36.3 C L Pulse Rate 107 H 105 H 100 Respiratory Rate 18 Blood Pressure 128/80 Pulse Oximetry 96 Oxygen Delivery 12/29/23 16:00 12/29/23 16:00 12/29/23 18:00 Temperature Pulse Rate 92 92 102 H Respiratory Rate 18 Blood Pressure Pulse Oximetry 96 Oxygen Delivery Room Air 12/29/23 19:42 12/30/23 00:06 12/29/23 20:00 Temperature 36.6 C 36.6 C Pulse Rate 95 107 H 95 Respiratory Rate 18 18 18 Blood Pressure 122/62 133/71 Pulse Oximetry 98 92 98 Oxygen Delivery Room Air 12/30/23 00:00 12/29/23 20:00 12/29/23 22:00 Temperature Pulse Rate 107 H 96 105 H Respiratory Rate 18 Blood Pressure Pulse Oximetry 92 Oxygen Delivery Room Air 12/30/23 00:00 12/30/23 01:37 12/30/23 04:00 Temperature Pulse Rate 107 H 111 H 112 H Respiratory Rate Blood Pressure Pulse Oximetry Oxygen Delivery 12/30/23 05:35 12/30/23 04:00 12/30/23 06:00 Temperature 36.5 C Pulse Rate 111 H 111 H 109 H Respiratory Rate 18 18 Blood Pressure 136/88 Pulse Oximetry 91 91 Oxygen Delivery Room Air 12/30/23 08:00 12/30/23 08:28 12/30/23 08:00 Temperature 36.3 C L Pulse Rate 56 L 106 H Respiratory Rate 18 Blood Pressure 130/57 L Pulse Oximetry 93 93 Oxygen Delivery Room Air 12/30/23 08:00 12/30/23 10:00 12/30/23 08:33 Temperature Pulse Rate 112 H 85 Respiratory Rate Blood Pressure Pulse Oximetry 92 Oxygen Delivery Room Air 12/30/23 12:00 Temperature 36.3 C L Pulse Rate 58 L Respiratory Rate 18 Blood Pressure 139/42 L Pulse Oximetry 94 Oxygen Delivery Intake/Output Intake/Output: Intake & Output 12/27/23 12/28/23 12/29/23 12/30/23 23:59 23:59 23:59 23:59 Intake Total 2420 3885 Output Total 1133 760 Balance 1287 3125 Meds/Results Medications: Active Medications Generic Name Dose Route Start Last Admin Trade Name Freq PRN Reason Stop Dose Admin Acetaminophen 650 mg 12/29/23 11:37 12/29/23 14:05 Acetaminophen 325 Mg Tablet PO 650 mg Q4H PRN Administration Mild Pain (1-3) or Fever Hydrocodone Bitart/Acetaminophen 1 tab 12/29/23 11:32 12/29/23 21:29 Hydrocodone/Acetaminophen (*Crx) 5-325 Mg Tablet PO 1 tab Q4H PRN Administration Moderate Pain (4-6) Albuterol 2.5 mg 12/30/23 10:30 Albuterol Sulfate Neb 2.5 Mg/3 Ml Inh INHALATION Q4HRT PRN Shortness Of Breath Or Wheezing Apixaban 5 mg 12/29/23 21:00 12/30/23 08:28
[2023-12-30] MEDS: ACETAMINOPHEN 325 MG TABLET 650 MG PO ×2 (14:25→19:53)
[2023-12-30] MEDS: VANCOMYCIN 1,250 MG/NS 250 ML 1,250 MG/250 ML BAG 166.67 MG IVPB (22:08)
[2023-12-31] VITALS (38 sets, daily range): BP systolic 101–146; BP diastolic 54–93; PULSE 56–167; RESP 16–22; TEMP 36.3–37.7; O2SAT 92–100
[2023-12-31] MEDS: VANCOMYCIN 1,250 MG/NS 250 ML 1,250 MG/250 ML BAG 166.67 MG IVPB (01:08)
[2023-12-31] MEDS: SODIUM CHLORIDE 0.9% IV 500 ML 30 ML (02:48)
[2023-12-31] MEDS: METOPROLOL TARTRATE INJ 5 MG/5 ML VIAL IV PUSH (02:57)
[2023-12-31] MEDS: ACETAMINOPHEN 325 MG TABLET 650 MG PO (02:59)
--- NOTE | 2023-12-31 03:02 | ECG_ITS ---
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 Measurements Intervals [place] Rate: 157 P: 0 TN: 0 QRS: 24 QRSD: 78 T: 18 QT: 270 QTc: 437 Interpretive Statements ATRIAL FIBRILLATION WITH RAPID VENTRICULAR RESPONSE Compared to ECG 12/29/2023 09:27:55 Atrial fibrillation with RVR now present Electronically Signed On 12-31-2023 12:08:51 CDT by Beau Lynn M.D.
[2023-12-31] MEDS: dilTIAZem HCl INJ 25 MG/5 ML VIAL IV PUSH (03:30)
[2023-12-31 03:44] LABS: Basophils Absolute Auto 0.1 K/mm3 (0.0-0.1); Basophils Percent Auto 0.4 % (0.2-1.2); Eosinophils Absolute Auto 0.1 K/mm3 (0-0.3); Eosinophils Percent Auto 0.7 % (0-4.4); Hematocrit 40.8 % (42.0-52.0); Hemoglobin 13.3 g/dL (14.0-18.0); Immature Granulocyte Absolute 0.07 K/mm3 (0.00-0.031); Immature Granulocyte Percent A 0.5 % (0-0.5); Lymphocytes Absolute Auto 0.87 K/mm3 (0.9-3.2); Lymphocytes Percent Auto 6.5 % (18.3-44.2); Mean Corpuscular HGB Conc 32.6 g/dl (32-36); Mean Corpuscular Hemoglobin 29.6 pg (26-34); Mean Corpuscular Volume 90.9 fl (80-100); Mean Platelet Volume 9.8 fl (7.4-10.4); Monocytes Absolute Auto 1.2 K/mm3 (0.1-0.6); Neutrophils Absolute Auto 11.2 K/mm3 (1.3-6.7); Neutrophils Percent Auto 82.9 % (45.5-73.1); Platelet Count Result 336 k/mm3 (150-375); Red Blood Count 4.49 M/mm3 (4.6-6.20); Red Cell Distribution Width 13.7 % (11.5-14.5); White Blood Count 13.5 K/mm3 (4.5-10.0)
[2023-12-31 03:56] LABS: Alanine Aminotransferase 30 U/L (6-50); Albumin Level 3.4 g/dL (3.5-5.1); Alkaline Phosphatase 72 U/L (38-126); Anion Gap 6 mmol/L (4-12); Aspartate Amino Transferase 40 U/L (17-59); Bilirubin,Total 0.6 mg/dL (0.2-1.3); Blood Urea Nitrogen 16 mg/dL (9-20); Calcium 8.3 mg/dL (8.4-10.2); Carbon Dioxide 23 mmol/L (22-30); Chloride 105 mmol/L (98-107); Estimated CRCL calculation 74 ml/min; Estimated Glomerular Filt Rate > 60; Glucose 108 mg/dL (65-110); Magnesium 2.1 mg/dL (1.6-2.3); Potassium 3.7 mmol/L (3.4-5.0); Sodium 134 mmol/L (137-145)
[2023-12-31 04:07] LABS: Troponin I 0.017 ng/mL (0.000-0.034)
[2023-12-31 04:20] LABS: D Dimer 2.34 ug/mL (<0.48)
[2023-12-31] MEDS: DIGOXIN INJ 250 MCG/ML 2 ML AMP (*BKC) 125 MCG IV PUSH (04:48)
--- NOTE | 2023-12-31 05:06 | PM.IMPN ---
Progress Note: A&P Assessment and Plan (1) PAF (paroxysmal atrial fibrillation): Code(s): I48.0 - Paroxysmal atrial fibrillation Status: Acute Plan -Atrial fibrillation with RVR check troponins and D-dimer currently already on Eliquis and metoprolol give 5 mg metoprolol of no response gave Cardizem 25 mg no response added digoxin 0.25 IV no response will transfer patient for a Cardizem drip starting at 5 mics per hour -continue telemetry, EKG showed may be early repolarization -cardiology consulted -prn Nitroglycerin, oxygen, morphine, aspirin -IV fluids: Continue maintainence normal saline for now Will get 2D echo check electrolytes Mag level. Less likely it is a PE patient already on Eliquis not hypoxic blood pressure is maintained but may need a CTA it does not respond to Cardizem drip Subjective Date/time seen: 12/31/23 05:06 Interval history: called in to see the patient because of AFib RVR patient denies chest pain or shortness breast has been running a low-grade fever for his liver abscess and is on vancomycin and Zosyn Review of Systems Review of Systems: All systems reviewed & are unremarkable except as noted in HPI and below Exam Narrative: GENERAL: Well appearing, no acute distress. HEAD: Normocephalic, atraumatic. NECK: Supple. No adenopathy, no masses. RESPIRATORY: respirations nonlabored. , no rales, wheezing. CARDIOVASCULAR: IRRegular rate and rhythm . Peripheral pulses 2+ and equal bilaterally. ABDOMINAL: Soft, nontender, nondistended, no hepatosplenomegaly. Normoactive BS. MUSCULOSKELETAL: no Epigastric and no hypochondrial tenderness SKIN: Warm, dry, NEURO: A&O X3. Moves all extremities Objective Data Vital Signs Vital Signs: Vital Signs - 24 hr 12/30/23 05:35 12/30/23 06:00 12/30/23 08:00 Temperature 36.5 C 36.3 C L Pulse Rate 111 H 109 H 56 L Respiratory Rate 18 18 Blood Pressure 136/88 130/57 L Pulse Oximetry 91 93 Oxygen Delivery Oxygen Flow Rate 12/30/23 08:28 12/30/23 08:00 12/30/23 08:00 Temperature Pulse Rate 106 H 112 H Respiratory Rate Blood Pressure Pulse Oximetry 93 Oxygen Delivery Room Air Oxygen Flow Rate 12/30/23 10:00 12/30/23 08:33 12/30/23 12:00 Temperature 36.3 C L Pulse Rate 85 58 L Respiratory Rate 18 Blood Pressure 139/42 L Pulse Oximetry 92 94 Oxygen Delivery Room Air Oxygen Flow Rate 12/30/23 14:10 12/30/23 13:50 12/30/23 12:00 Temperature 37.4 C 36.8 C Pulse Rate 77 Respiratory Rate 16 Blood Pressure 139/59 L Pulse Oximetry 95 Oxygen Delivery Room Air Oxygen Flow Rate 12/30/23 16:00 12/30/23 16:00 12/30/23 19:53 Temperature 36.9 C 37.5 C Pulse Rate 69 92 Respiratory Rate 16 Blood Pressure 126/66 Pulse Oximetry 91 Oxygen Delivery Oxygen Flow Rate 12/30/23 18:44 12/30/23 20:00 12/30/23 23:17 Temperature 36.3 C L 36.3 C L Pulse Rate 53 L 53 L Respiratory Rate 12 12 Blood Pressure 144/71 H 144/71 H Pulse Oximetry 94 94 Oxygen Delivery Room Air Oxygen Flow Rate 12/30/23 20:50 12/31/23 02:57 12/31/23 02:59 Temperature 36.3 C L 37.7 C H Pulse Rate 157 H Respiratory Rate Blood Pressure Pulse Oximetry Oxygen Delivery Oxygen Flow Rate 12/31/23 03:25 12/31/23 02:40 12/30/23 20:00 Temperature 37.7 C H Pulse Rate 157 H 109 H Respiratory Rate 22 H Blood Pressure 133/93 H Pulse Oximetry 94 94 Oxygen Delivery Nasal Cannula Oxygen Flow Rate 2 12/31/23 00:00 12/31/23 04:00 12/31/23 03:55 Temperature 37.0 C Pulse Rate 98 148 H Respiratory Rate Blood Pressure Pulse Oximetry Oxygen Delivery Oxygen Flow Rate 12/31/23 04:48 Temperature Pulse Rate 146 H Respiratory Rate Blood Pressure Pulse Oximetry Oxygen Delivery Oxygen Flow Rate Intake/Output Intake/Output: Intake & Output 12/28/23 12/29/23 12/30/23 12/31/23 23:59 23:59 23:59 23:
--- NOTE | 2023-12-31 05:34 | PC.NURSE ---
Pt is being taken to CT per PE protocol, and then being transferred to IMU due to pt being in AFib RVR. Report given to receiving nurse.
--- NOTE | 2023-12-31 05:38 | PC.NURSE ---
This patient, Rafael Santiago, was received from [facility] on 12/31/23 at 0538. Report received from SHAYY Luz. Patient/family oriented to unit policies and routines
[2023-12-31] MEDS: dilTIAZem 100 MG/100 ML 100 MG/100 ML BAG IV CONT (06:05)
[2023-12-31 07:01] LABS: Troponin I 0.017 ng/mL (0.000-0.034)
[2023-12-31] MEDS: METOPROLOL SUCCINATE EXT REL 50 MG TABCR PO (08:25)
[2023-12-31] MEDS: ramipriL 5 MG CAPSULE 10 MG PO (08:25)
[2023-12-31] MEDS: ATORVASTATIN 10 MG TABLET PO (08:26)
[2023-12-31] MEDS: APIXABAN 5 MG TABLET PO ×2 (08:26→20:26)
[2023-12-31] MEDS: LINACLOTIDE 72 MCG CAPSULE PO (08:26)
[2023-12-31] MEDS: SENNA/DOCUSATE SODIUM TABLET 1 TAB PO ×2 (08:26→20:27)
[2023-12-31] MEDS: PIPERACILLN/TAZ 3.375GM/NS50ML 3.375 GM/50 ML BAG IVPB ×3 (10:12→21:45)
--- NOTE | 2023-12-31 10:29 | PM.CNCAR ---
Assessment and Plan Assessment and plan (1) Paroxysmal atrial fibrillation with rapid ventricular response: Code(s): I48.0 - Paroxysmal atrial fibrillation Status: Acute Assessment and Plan: Check TSH level. Will stop IV Diltiazem drip and start IV Amiodarone drip. Suspect AFIB triggered in setting of infection, and his AFIB should improve as his infection improves. Do not anticipate that this patient will need long-term Amiodarone therapy. Echocardiogram ordered and pending as no echo in our system. Continue PO Toprol. Continue Eliquis 5mg BID. Discussed with patient that he should be taking Eliquis as a BID medication instead of once daily; patient agreeable to this. He did not realize he was supposed to take it twice daily. (2) Abscess, subdiaphragmatic: Code(s): K65.1 - Peritoneal abscess Status: Acute Assessment and Plan: As per General Surgery. (3) Hypertension: Qualifiers: Hypertension type: primary hypertension Qualified Code(s): I10 - Essential (primary) hypertension Code(s): I10 - Essential (primary) hypertension Status: Acute Assessment and Plan: Stable. Continue Ramipril and Toprol. (4) Hyperlipidemia: Code(s): E78.5 - Hyperlipidemia, unspecified Status: Acute Assessment and Plan: Continue statin (5) Anticoagulant long-term use: Code(s): Z79.01 - intermediate manager (current) use of anticoagulants Status: Acute Assessment and Plan: Continue Eliquis 5mg BID. Discussed with patient that he should be taking Eliquis as a BID medication instead of once daily; patient agreeable to this. He did not realize he was supposed to take it twice daily. Plan This is a patient of Dr. Gonzales, however, as Dr. Webb is off at this time, we will be seeing the patient until Dr. Webb returns. History of Present Illness History of Present Illness Consult date/time: 12/31/23 10:29 Requesting physician: Dariel Marino MD Consult reason: atrial fibrillation Reason For Visit: Liver Abscess Narrative: We are consulted for atrial fibrillation with RVR. This is a patient of Dr. Gonzales, however, as Dr. Webb is off at this time, we will be seeing the patient until Dr. Webb returns. This is an 78 year old male with paroxysmal atrial fibrillation on Eliquis, hypertension, hyperlipidemia who presented with fevers, not feeling well, abdominal pain, right shoulder pain, CT of the abdomen and pelvis showed 8.7 x 5.4 x 4.0 cm abscess centered posterior to the liver with involvement of the posterior aspect of right hepatic lobe. He underwent successful CT-guided right subphrenic abscess drainage with placement of catheter. Overnight, patient went into AFIB with RVR. He was started on Diltiazem drip and given IV Digoxin, however, remains in RVR. Patient tells me he has been compliant with Eliquis at home, however, he has only been taking it once daily. He did not realize it was a BID medication. Review of Systems Review of Systems: All systems reviewed & are unremarkable except as noted in HPI and below (HPI) [facility] Past Medical History Medical History History of atrial fibrillation 1 episode of atrial fibrillation after having back surgery in June of 2022. Placed on Eliquis at that time. Hyperlipidemia Hypertension Surgical History Surgical History History of back surgery S/P laparoscopic cholecystectomy 02/13/23 Social History Social History Smoking packs per day: 1 Smoking cigarettes per day: 20.0 Years smoked: 12 Smoking pack-years: 12.00 Smoking status: Former smoker Tobacco type: cigarettes Second hand tobacco smoke exposure: No Smoking end date: 07/31/78 Alcohol intake: current Drinks per week: 10 Substance use: never Substance use type: does not
[2023-12-31] MEDS: AMIODARONE 150 MG/D5W 100 ML 150 MG/100 ML BAG 600 MG IV CONT (10:39)
--- NOTE | 2023-12-31 10:39 | P.PNIM_ITS ---
Progress Note: A&P Assessment and Plan (1) Abscess, subdiaphragmatic: Code(s): K65.1 - Peritoneal abscess Status: Acute Assessment and Plan: Right shoulder right upper quadrant pain and fever for 7-10 days Abscess posterior to the liver on CT imaging Status post IR drainage with pigtail drain in place Continue IV Zosyn Cultures in process Per surgical note, abscess may contain gallstones and require subsequent surgical intervention 12/29: * IR drain placed yesterday * Cultures pending * Continue Zosyn * WBC has improved. 13.7 today down from 14.6 * Afebrile, blood pressure stable, ranging 111-105 * Telemetry ordered. Patient is running AFib in the 100s with PACs. 12/30: * Abdominal abscess culture shows moderate a g positive cocci in chains in anaerobic culture, a row but culture is positive for Streptococcus anginosus * Blood cultures are positive in both bottles for Gram-positive cocci in chains * White blood cell count 13.5 today * Patient was started on vancomycin * Will discontinue Zosyn and and transition to cefepime and oral Flagyl given poor renal tolerance of vanc and Zosyn combo. * Monitor lactic and procalcitonin * Blood pressures are stable, afebrile (2) Bacteremia due to Gram-positive bacteria: Code(s): R78.81 - Bacteremia Status: Acute Assessment and Plan: * Blood cultures are growing Gram-positive cocci in chains * Patient is started on IV vancomycin 12/29, pharmacy to dose. * Repeat blood cultures ordered for tomorrow morning (3) Atrial fibrillation: Qualifiers: Atrial fibrillation type: unspecified Qualified Code(s): I48.91 - Unspecified atrial fibrillation Code(s): I48.91 - Unspecified atrial fibrillation Status: Chronic Assessment and Plan: 1 prior episode of atrial fibrillation when he underwent neck surgery Bedside monitoring appears to be atrial fibrillation borderline tachycardic rate of 105 Patient had not received metoprolol yet today so this was given postprocedure with improvement in rate 12/29: * Continue metoprolol 50 mg daily. May need to titrate up 12/30: * Patient went into a rapid ventricular response with heart rate in the 150s overnight. * Patient received IV diltiazem and IV Lopressor without result. Started on a diltiazem drip and admitted to IMU * Cardiology has been consulted on the case and they are seeing him this morning * He has been transition to an amiodarone drip. Suspect RVR is from acute infection. 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 * Echo is pending * Continue metoprolol * Continue Eliquis b.i.d. (4) Anticoagulant long-term use: Code(s): Z79.01 - open die inspector (current) use of anticoagulants Status: Acute Assessment and Plan: Patient is on Eliquis for atrial fibrillation with elevated chads Vasc score He has not had Eliquis for least 24 hours prior to procedure Restarted evening dose 12/28 (5) Hypertension: Qualifiers: Hypertension type: primary hypertension Qualified Code(s): I10 - Essential (primary) hypertension Code(s): I10 - Essential (primary) hypertension Status: Acute Assessment and Plan: Blood pressure reviewed on 12/28, stable Continue home medications 12/30: Blood pressure reviewed (6) Hyperlipidemia: Code(s): E78.5 - Hyperlipidemia, unspecified Status: Acute Assessment and Plan: Continue low-dose atorvastatin which is a home medication (7) Hx of acute cholecystitis: Code(s): Z87.19 - Personal history of other di
--- NOTE | 2023-12-31 10:39 | PM.IMPN ---
Progress Note: A&P Assessment and Plan (1) Abscess, subdiaphragmatic: Code(s): K65.1 - Peritoneal abscess Status: Acute Assessment and Plan: Right shoulder right upper quadrant pain and fever for 7-10 days Abscess posterior to the liver on CT imaging Status post IR drainage with pigtail drain in place Continue IV Zosyn Cultures in process Per surgical note, abscess may contain gallstones and require subsequent surgical intervention 12/29: IR drain placed yesterday Cultures pending Continue Zosyn WBC has improved. 13.7 today down from 14.6 Afebrile, blood pressure stable, ranging 111-105 Telemetry ordered. Patient is running AFib in the 100s with PACs. 12/30: Abdominal abscess culture shows moderate a g positive cocci in chains in anaerobic culture, a row but culture is positive for Streptococcus anginosus Blood cultures are positive in both bottles for Gram-positive cocci in chains White blood cell count 13.5 today Patient was started on vancomycin Will discontinue Zosyn and and transition to cefepime and oral Flagyl given poor renal tolerance of vanc and Zosyn combo. Monitor lactic and procalcitonin Blood pressures are stable, afebrile (2) Bacteremia due to Gram-positive bacteria: Code(s): R78.81 - Bacteremia Status: Acute Assessment and Plan: Blood cultures are growing Gram-positive cocci in chains Patient is started on IV vancomycin 12/29, pharmacy to dose. Repeat blood cultures ordered for tomorrow morning (3) Atrial fibrillation: Qualifiers: Atrial fibrillation type: unspecified Qualified Code(s): I48.91 - Unspecified atrial fibrillation Code(s): I48.91 - Unspecified atrial fibrillation Status: Chronic Assessment and Plan: 1 prior episode of atrial fibrillation when he underwent neck surgery Bedside monitoring appears to be atrial fibrillation borderline tachycardic rate of 105 Patient had not received metoprolol yet today so this was given postprocedure with improvement in rate 12/29: Continue metoprolol 50 mg daily. May need to titrate up 12/30: Patient went into a rapid ventricular response with heart rate in the 150s overnight. Patient received IV diltiazem and IV Lopressor without result. Started on a diltiazem drip and admitted to IMU Cardiology has been consulted on the case and they are seeing him this morning He has been transition to an amiodarone drip. Suspect RVR is from acute infection. Cards does not anticipate needing amiodarone skilled nursing. Echo is pending Continue metoprolol Continue Eliquis b.i.d. (4) Anticoagulant long-term use: Code(s): Z79.01 - half-way (current) use of anticoagulants Status: Acute Assessment and Plan: Patient is on Eliquis for atrial fibrillation with elevated chads Vasc score He has not had Eliquis for least 24 hours prior to procedure Restarted evening dose 12/28 (5) Hypertension: Qualifiers: Hypertension type: primary hypertension Qualified Code(s): I10 - Essential (primary) hypertension Code(s): I10 - Essential (primary) hypertension Status: Acute Assessment and Plan: Blood pressure reviewed on 12/28, stable Continue home medications 12/30: Blood pressure reviewed (6) Hyperlipidemia: Code(s): E78.5 - Hyperlipidemia, unspecified Status: Acute Assessment and Plan: Continue low-dose atorvastatin which is a home medication (7) Hx of acute cholecystitis: Code(s): Z87.19 - Personal history of other diseases of the digestive system Status: Acute Assessment and Plan: History of laparoscopic cholecystectomy [address] Tierney [address] this facility Plan Patient was admitted to IMU status post IR drainage, can likely downgrade Surgery consulting, Zosyn and pain medications ordered by Dr. Katz Pigtail drain in place Feeding: Heart healthy diet Analgesia: Tylenol, Dilaudid, [place] Thromboembol
[2023-12-31] MEDS: AMIODARONE 360 MG/D5W 200 ML 360 MG/200 ML BAG 33.33 MG IV CONT (11:04)
[2023-12-31] MEDS: CEFEPIME 2 GM/NS 50 ML 2 GM/50 ML BAG IVPB (11:05)
--- NOTE | 2023-12-31 11:12 | WPDPN ---
Progress Note: A&P Assessment and Plan (1) Bacteremia due to Gram-positive bacteria: Code(s): R78.81 - Bacteremia Status: Acute Assessment and Plan: Resolved. Cultures did grow out Streptococcus. His IV antibiotic regimen should cover this very well. CTA of the chest today who had no pulmonary embolus. The did image the area of the abscess and this right subdiaphragmatic region and the abscess has been completely drained and resolved. Will likely remove the drain tomorrow as long as he continues do well[place] [address]. (2) Paroxysmal atrial fibrillation with rapid ventricular response: Code(s): I48.0 - Paroxysmal atrial fibrillation Status: Acute Assessment and Plan: He is on Eliquis. Cardiology is coming to see him today. (3) Abscess, subdiaphragmatic: Code(s): K65.1 - Peritoneal abscess Status: Acute Assessment and Plan: Drain with pigtail drain. CTA of the chest today reveals area has no residual abscess cavity to drain. Likely remove the drain tomorrow. Subjective Date/time seen: 12/31/23 11:12 Interval history: Patient overall doing well. Apparently started having issues with intermittently going in and out of atrial fibrillation last evening was transferred to being on telemetry. Still is taking his Eliquis. Cardiology has been consult the see him. Otherwise he denies having any right shoulder pain. Entry site to the pigtail drain in the right side is a little sore but otherwise the dressing is dry. Tolerating regular diet. No fever. Exam Const: General: comfortable and no acute distress Neck: Neck: supple Resp: Effort & Inspection: normal respiratory effort Auscultation: clear to auscultation bilaterally GI: Other: Abdomen is soft nondistended. Right-sided pigtail drain site is clean and dry. Output from the drain is relatively thin bloody serous sanguinous fluid. Skin: General skin exam: normal color and no rashes or lesions noted Neuro: General: gait normal Speech: normal speech Extrem: General: normal to inspection Psych: Mental Status: mental status grossly normal Affect: normal affect Objective Data Vital Signs Vital Signs: Vital Signs - 24 hr 12/30/23 12:00 12/30/23 14:10 12/30/23 13:50 Temperature 36.3 C L 37.4 C 36.8 C Pulse Rate 58 L 77 Respiratory Rate 18 16 Blood Pressure 139/42 L 139/59 L Pulse Oximetry 94 95 Oxygen Delivery Oxygen Flow Rate 12/30/23 12:00 12/30/23 16:00 12/30/23 16:00 Temperature 36.9 C Pulse Rate 69 92 Respiratory Rate 16 Blood Pressure 126/66 Pulse Oximetry 91 Oxygen Delivery Room Air Oxygen Flow Rate 12/30/23 19:53 12/30/23 18:44 12/30/23 20:00 Temperature 37.5 C 36.3 C L Pulse Rate 53 L Respiratory Rate 12 Blood Pressure 144/71 H Pulse Oximetry 94 Oxygen Delivery Room Air Oxygen Flow Rate 12/30/23 23:17 12/30/23 20:50 12/31/23 02:57 Temperature 36.3 C L 36.3 C L Pulse Rate 53 L 157 H Respiratory Rate 12 Blood Pressure 144/71 H Pulse Oximetry 94 Oxygen Delivery Oxygen Flow Rate 12/31/23 02:59 12/31/23 03:25 12/31/23 02:40 Temperature 37.7 C H 37.7 C H Pulse Rate 157 H Respiratory Rate 22 H Blood Pressure 133/93 H Pulse Oximetry 94 94 Oxygen Delivery Nasal Cannula Oxygen Flow Rate 2 12/30/23 20:00 12/31/23 00:00 12/31/23 04:00 Temperature Pulse Rate 109 H 98 148 H Respiratory Rate Blood Pressure Pulse Oximetry Oxygen Delivery Oxygen Flow Rate 12/31/23 03:55 12/31/23 04:48 12/31/23 05:09 Temperature 37.0 C Pulse Rate 146 H 167 H Respiratory Rate Blood Pressure Pulse Oximetry Oxygen Delivery Oxygen Flow Rate 12/31/23 05:40 12/31/23 06:00 12/31/23 06:05 Temperature Pulse Rate 153 H 153 H Respiratory Rate Blood Pressure Pulse Oximetry Oxygen Delivery Room Air Oxygen Flow Rate
[2023-12-31] MEDS: IPRATROPIUM 0.5 MG/ALBUTEROL SULFATE 2.5 MG AMPUL.NEB 3 ML INHALATION ×2 (12:07→20:02)
--- NOTE | 2023-12-31 14:41 | ECG_ITS ---
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 Measurements Intervals [place] Rate: 81 P: 34 [place]: 180 QRS: -1 QRSD: 80 T: 5 QT: 392 QTc: 458 Interpretive Statements SINUS RHYTHM WITH FREQUENT SUPRAVENTRICULAR PREMATURE COMPLEXES ABNORMAL RHYTHM ECG Compared to ECG 12/31/2023 02:13:38 Atrial fibrillation no longer present Electronically Signed On 01-01-2024 07:19:57 CDT by Brandon Atkinson M.D.
[2023-12-31] MEDS: AMIODARONE 360 MG/D5W 200 ML 360 MG/200 ML BAG 16.67 MG IV CONT (16:53)
[2024-01-01] VITALS (30 sets, daily range): BP systolic 133–165; BP diastolic 67–91; PULSE 67–92; RESP 16–23; TEMP 36.2–36.9; O2SAT 94–98
--- NOTE | 2024-01-01 | ECHO_ITS ---
Patient Info Name: Rafael Santiago Age: 78 years : 1945 Gender: Male Ht: 69 in Wt: 211 lbs BSA: 2.19 m2 HR: 90 bpm BP: 155 / 72 mmHg Heart Rhythm: Sinus Rhythm Technical Quality: Fair Exam Date: 01/01/2024 7:34 AM Exam Location: Echo Lab Patient Status: Inpatient Admit Date: 12/29/2023 Staff Ordering Physician: Beau Lynn MD (stephania/perla) Ambulance Driver Paramedic: Madeline Mabry RDCS Attending Provider: Susie Boyd APRN Referring Physician: Shane PLATT; Exam Type: CA echo dop color flow w con Study Info Indications - afib Complete two-dimensional, color flow and Doppler transthoracic echocardiogram is performed with contrast to opacify the left ventricle and to improve the deliniation of the left ventricle endocardial borders. Contrast/Agitated Saline Contrast/Ag. Saline: Definity Amount: 2.00 ml Administered By: Madeline Mabry RDCS Existing IV Access: Yes IV Access Condition: patent with no signs of infiltration Summary 1. Technically difficult exam, definity contrast used to improve visualization. 2. Left ventricular hypertrophy with good systolic function and grade 2 diastolic noncompliance. 3. Left atrial dilation. 4. Sclerotic but not stenotic aortic valve. 5. Sinus rhythm during this echocardiogram. Left Ventricle Left ventricular chamber dimension is normal. Left ventricular systolic function is normal, estimated at Empty. There is mild concentric increased left ventricular wall thickness. Left Atria Left atrial chamber dimension is mildly enlarged. Right Atria Right atrial chamber dimension is normal. Aortic Valve The aortic valve is trileaflet. There is mild aortic valve sclerosis. Pulmonic Valve The pulmonic valve is not well visualized. Mitral Valve The mitral valve has normal leaflets. Tricuspid Valve The tricuspid valve leaflets are not well visualized. Pericardium/Pleural The pericardium appears normal. Aorta The aortic root size at the sinus of Valsalva is normal. Left Ventricular Outflow Tract Name Value Normal LVOT 2D LVOT Diameter 1.99 cm LVOT Doppler LVOT Peak Gradient 3 mmHg LVOT Mean Gradient 2 mmHg LVOT VTI 15.65 cm LVOT VTI/AV VTI Ratio 0.44 LVOT Stroke Volume 48.55 ml LVOT CO 4.68 l/min LVOT CI 2.14 L/min/m2 Pulmonic Valve Name Value Normal RVOT Doppler RVOT Peak Gradient 1 mmHg PV Doppler PV Peak Gradient 3 mmHg Mitral Valve Name Value Normal
[2024-01-01] MEDS: PIPERACILLN/TAZ 3.375GM/NS50ML 3.375 GM/50 ML BAG IVPB ×2 (04:30→10:35)
[2024-01-01] MEDS: AMIODARONE 360 MG/D5W 200 ML 360 MG/200 ML BAG 16.67 MG IV CONT ×2 (04:31→16:25)
--- NOTE | 2024-01-01 08:08 | P.PNIM_ITS ---
Progress Note: A&P Assessment and Plan (1) Abscess, subdiaphragmatic: Code(s): K65.1 - Peritoneal abscess Status: Acute Assessment and Plan: Right shoulder right upper quadrant pain and fever for 7-10 days Abscess posterior to the liver on CT imaging Status post IR drainage with pigtail drain in place Continue IV Zosyn Cultures in process Per surgical note, abscess may contain gallstones and require subsequent surgical intervention 12/29: * IR drain placed yesterday * Cultures pending * Continue Zosyn * WBC has improved. 13.7 today down from 14.6 * Afebrile, blood pressure stable, ranging 111-105 * Telemetry ordered. Patient is running AFib in the 100s with PACs. 12/30: * Abdominal abscess culture shows moderate gram positive cocci in chains in anaerobic culture, a row but culture is positive for Streptococcus anginosus * Blood cultures are positive in both bottles for Gram-positive cocci in chains * White blood cell count 13.5 today * D/C vancomycin, continue zosyn * Monitor lactic and procalcitonin * Blood pressures are stable, afebrile 12/31: * Procal 0.6, afebrile, white cell count is resolving. * Awaiting sensitivities from cultures. On zosyn. (2) Bacteremia due to Gram-positive bacteria: Code(s): R78.81 - Bacteremia Status: Acute Assessment and Plan: * Blood cultures are growing Gram-positive cocci in chains * Patient is started on IV vancomycin 12/29, pharmacy to dose. * Repeat blood cultures ordered for tomorrow morning 12/31: * cultures repeated this am * on zosyn * awaiting sensitivites (3) Atrial fibrillation: Qualifiers: Atrial fibrillation type: unspecified Qualified Code(s): I48.91 - Unspecified atrial fibrillation Code(s): I48.91 - Unspecified atrial fibrillation Status: Chronic Assessment and Plan: 1 prior episode of atrial fibrillation when he underwent neck surgery Bedside monitoring appears to be atrial fibrillation borderline tachycardic rate of 105 Patient had not received metoprolol yet today so this was given postprocedure with improvement in rate 12/29: * Continue metoprolol 50 mg daily. May need to titrate up 12/30: * Patient went into a rapid ventricular response with heart rate in the 150s overnight. * Patient received IV diltiazem and IV Lopressor without result. Started on a diltiazem drip and admitted to IMU * Cardiology has been consulted on the case and they are seeing him this morning * He has been transition to an amiodarone drip. Suspect RVR is from acute infection. 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 * Echo is pending * Continue metoprolol * Continue Eliquis b.i.d. 12/31: * Cardiology following * Currently a-fib with rate in the 80-90's. * 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(s): Z79.01 - skilled nursing (current) use of anticoagulants Status: Acute Assessment and Plan: Patient is on Eliquis for atrial fibrillation with elevated chads Vasc score He has not had Eliquis for least 24 hours prior to procedure Restarted evening dose 12/28 (5) Hypertension: Qualifiers: Hypertension type: primary hypertension Qualified Code(s): I10 - Essential (primary) hypertension Code(s): I10 - Essential (primary) hypertension Status: Acute Assessment and Plan: Blood pressure reviewed on 12/28, stable Continue home medications 12/30: Blood pressure reviewed (6) Hyperlipidemia: Code(s): E78.5 - Hyperlipidemia, unspecified
--- NOTE | 2024-01-01 08:08 | PM.IMPN ---
Progress Note: A&P Assessment and Plan (1) Abscess, subdiaphragmatic: Code(s): K65.1 - Peritoneal abscess Status: Acute Assessment and Plan: Right shoulder right upper quadrant pain and fever for 7-10 days Abscess posterior to the liver on CT imaging Status post IR drainage with pigtail drain in place Continue IV Zosyn Cultures in process Per surgical note, abscess may contain gallstones and require subsequent surgical intervention 12/29: IR drain placed yesterday Cultures pending Continue Zosyn WBC has improved. 13.7 today down from 14.6 Afebrile, blood pressure stable, ranging 111-105 Telemetry ordered. Patient is running AFib in the 100s with PACs. 12/30: Abdominal abscess culture shows moderate gram positive cocci in chains in anaerobic culture, a row but culture is positive for Streptococcus anginosus Blood cultures are positive in both bottles for Gram-positive cocci in chains White blood cell count 13.5 today D/C vancomycin, continue zosyn Monitor lactic and procalcitonin Blood pressures are stable, afebrile 12/31: Procal 0.6, afebrile, white cell count is resolving. Awaiting sensitivities from cultures. On zosyn. (2) Bacteremia due to Gram-positive bacteria: Code(s): R78.81 - Bacteremia Status: Acute Assessment and Plan: Blood cultures are growing Gram-positive cocci in chains Patient is started on IV vancomycin 12/29, pharmacy to dose. Repeat blood cultures ordered for tomorrow morning 12/31: cultures repeated this am on zosyn awaiting sensitivites (3) Atrial fibrillation: Qualifiers: Atrial fibrillation type: unspecified Qualified Code(s): I48.91 - Unspecified atrial fibrillation Code(s): I48.91 - Unspecified atrial fibrillation Status: Chronic Assessment and Plan: 1 prior episode of atrial fibrillation when he underwent neck surgery Bedside monitoring appears to be atrial fibrillation borderline tachycardic rate of 105 Patient had not received metoprolol yet today so this was given postprocedure with improvement in rate 12/29: Continue metoprolol 50 mg daily. May need to titrate up 12/30: Patient went into a rapid ventricular response with heart rate in the 150s overnight. Patient received IV diltiazem and IV Lopressor without result. Started on a diltiazem drip and admitted to IMU Cardiology has been consulted on the case and they are seeing him this morning He has been transition to an amiodarone drip. Suspect RVR is from acute infection. Cards does not anticipate needing amiodarone senior care. Echo is pending Continue metoprolol Continue Eliquis b.i.d. 12/31: Cardiology following Currently a-fib with rate in the 80-90's. 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 Status: Acute Assessment and Plan: Patient is on Eliquis for atrial fibrillation with elevated chads Vasc score He has not had Eliquis for least 24 hours prior to procedure Restarted evening dose 12/28 (5) Hypertension: Qualifiers: Hypertension type: primary hypertension Qualified Code(s): I10 - Essential (primary) hypertension Code(s): I10 - Essential (primary) hypertension Status: Acute Assessment and Plan: Blood pressure reviewed on 12/28, stable Continue home medications 12/30: Blood pressure reviewed (6) Hyperlipidemia: Code(s): E78.5 - Hyperlipidemia, unspecified Status: Acute Assessment and Plan: Continue low-dose atorvastatin which is a home medication (7) Hx of acute cholecystitis: Code(s): Z87.19 - Personal history of other diseases of the digestive system Status: Acute Assessment and Plan: History of laparoscopic cholecystectomy [address] Tierney at this facility Plan Patient was admitted to IMU status post IR drainage, can likely downgrade Surgery
[2024-01-01] MEDS: IPRATROPIUM 0.5 MG/ALBUTEROL SULFATE 2.5 MG AMPUL.NEB 3 ML INHALATION ×3 (08:15→20:33)
[2024-01-01] MEDS: METOPROLOL SUCCINATE EXT REL 50 MG TABCR PO (08:20)
[2024-01-01] MEDS: ATORVASTATIN 10 MG TABLET PO (08:20)
[2024-01-01] MEDS: SENNA/DOCUSATE SODIUM TABLET 1 TAB PO (08:21)
[2024-01-01] MEDS: LINACLOTIDE 72 MCG CAPSULE PO (08:21)
[2024-01-01] MEDS: APIXABAN 5 MG TABLET PO ×2 (08:22→20:53)
[2024-01-01] MEDS: ramipriL 5 MG CAPSULE 10 MG PO (08:23)
--- NOTE | 2024-01-01 08:30 | PM.PNCARD ---
Progress Note: A&P Assessment and Plan (1) Paroxysmal atrial fibrillation with rapid ventricular response: Code(s): I48.0 - Paroxysmal atrial fibrillation Status: Acute Assessment and Plan: He did convert to sinus rhythm on amiodarone but this morning has had several episodes of AF RVR. Suspect AFIB triggered in setting of infection, and his AFIB should improve as his infection improves. Do not anticipate that this patient will need long-term Amiodarone therapy. For now, will continue the IV amiodarone and perhaps shift to p.o. amio tomorrow. Echocardiogram pending Continue PO Toprol. Continue Eliquis 5mg BID. Discussed with patient that he should be taking Eliquis as a BID medication instead of once daily; patient agreeable to this. He did not realize he was supposed to take it twice daily. (2) Abscess, subdiaphragmatic: Code(s): K65.1 - Peritoneal abscess Status: Acute Assessment and Plan: As per General Surgery. (3) Hypertension: Qualifiers: Hypertension type: primary hypertension Qualified Code(s): I10 - Essential (primary) hypertension Code(s): I10 - Essential (primary) hypertension Status: Acute Assessment and Plan: Generally above goal. 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 Plan This is a patient of Dr. Webb's, however, as Dr. Webb is off at this time, we will be seeing the patient until Dr. Webb returns. Subjective Date/time seen: 01/01/24 08:30 Interval history: Cardiology follow up for atrial fibrillation He is feeling well this morning and has no specific complaints. Telemetry shows sinus rhythm generally but he is having paroxysms of rapid atrial fibrillation. He denies feeling any palpitations, chest pain, shortness of breath. Review of Systems Review of Systems: All systems reviewed & are unremarkable except as noted in HPI and below (HPI) Exam Const: General: comfortable and no acute distress HENMT: Mouth: Yes moist mucous membranes Eyes: General: appearance normal, both eyes and all related structures Sclera: sclerae normal Neck: Neck: supple Resp: Effort & Inspection: normal respiratory effort Cardio: Rate: regular rate and tachycardic Rhythm: regular rhythm Skin: General skin exam: normal color Neuro: Speech: normal speech Extrem: Other: No edema Psych: Mental Status: mental status grossly normal Affect: normal affect Objective Data Vital Signs Vital Signs: Vital Signs - 24 hr 12/31/23 10:39 12/31/23 10:38 12/31/23 10:50 Temperature Pulse Rate 132 H 145 H 130 H Respiratory Rate Blood Pressure 102/63 Pulse Oximetry Oxygen Delivery 12/31/23 11:04 12/31/23 10:00 12/31/23 11:39 Temperature 36.3 C L Pulse Rate 123 H 125 H 64 Respiratory Rate 18 Blood Pressure 106/86 114/55 L Pulse Oximetry 99 Oxygen Delivery 12/31/23 12:07 12/31/23 12:12 12/31/23 12:00 Temperature Pulse Rate 70 115 H Respiratory Rate 16 16 Blood Pressure Pulse Oximetry Oxygen Delivery Room Air 12/31/23 12:00 12/31/23 14:12 12/31/23 14:00 Temperature 37.3 C Pulse Rate 123 H 56 L 86 Respiratory Rate 18 Blood Pressure 132/62 Pulse Oximetry 94 Oxygen Delivery 12/31/23 16:00 12/31/23 16:53 12/31/23 16:53 Temperature 37.4 C Pulse Rate 85 76 76 Respiratory Rate 18 Blood Pressure 146/54 H 140/62 Pulse Oximetry 96 Oxygen Delivery 12/31/23 16:00 12/31/23 16:00 12/31/23 18:00 Temperature Pulse Rate 83 79 Respiratory Rate Blood Pressure Pulse Oximetry Oxygen Delivery Room Air 12/31/23 20:03
[2024-01-01 08:49] LABS: Basophils Absolute Auto 0.1 K/mm3 (0.0-0.1); Basophils Percent Auto 0.6 % (0.2-1.2); Eosinophils Absolute Auto 0.2 K/mm3 (0-0.3); Eosinophils Percent Auto 2.1 % (0-4.4); Hematocrit 40.5 % (42.0-52.0); Hemoglobin 13.2 g/dL (14.0-18.0); Immature Granulocyte Absolute 0.06 K/mm3 (0.00-0.031); Immature Granulocyte Percent A 0.6 % (0-0.5); Lymphocytes Absolute Auto 1.17 K/mm3 (0.9-3.2); Lymphocytes Percent Auto 12.5 % (18.3-44.2); Mean Corpuscular HGB Conc 32.6 g/dl (32-36); Mean Corpuscular Hemoglobin 29.9 pg (26-34); Mean Corpuscular Volume 91.6 fl (80-100); Mean Platelet Volume 9.9 fl (7.4-10.4); Monocytes Percent Auto 10.2 % (2.6-8.5); Neutrophils Absolute Auto 6.9 K/mm3 (1.3-6.7); Platelet Count Result 386 k/mm3 (150-375); Red Blood Count 4.42 M/mm3 (4.6-6.20); Red Cell Distribution Width 13.5 % (11.5-14.5); White Blood Count 9.4 K/mm3 (4.5-10.0)
[2024-01-01 09:08] LABS: Alanine Aminotransferase 33 U/L (6-50); Albumin Level 3.3 g/dL (3.5-5.1); Alkaline Phosphatase 69 U/L (38-126); Anion Gap 6 mmol/L (4-12); Aspartate Amino Transferase 39 U/L (17-59); Bilirubin,Total 0.4 mg/dL (0.2-1.3); Blood Urea Nitrogen 14 mg/dL (9-20); Calcium 8.4 mg/dL (8.4-10.2); Carbon Dioxide 27 mmol/L (22-30); Chloride 105 mmol/L (98-107); Estimated CRCL calculation 73 ml/min; Estimated Glomerular Filt Rate > 60; Glucose 111 mg/dL (65-110); Lactic Acid Reflex 0.8 mmol/L (0.7-2.0); Magnesium 2.3 mg/dL (1.6-2.3); Potassium 3.6 mmol/L (3.4-5.0); Sodium 138 mmol/L (137-145)
[2024-01-01] MEDS: PERFLUTREN LIPID MICROSPHERES 1.5 ML VIAL DILUTED TO 10 ML TOTAL VOLUME IV PUSH (09:30)
[2024-01-01 09:45] LABS: Procalcitonin 0.6 ng/mL
[2024-01-01] MEDS: AZITHROMYCIN 250 MG TABLET 500 MG PO (09:51)
--- NOTE | 2024-01-01 11:38 | IVDEFINITY ---
Prior to administration of IV Definity the patient was educated on the risks and benefits of the imaging enhancing agent including potential adverse side effects. The patient verbalized understanding. Allergies were verified. No exclusion criteria were identified and at least one of the following inclusion criteria were met: 1) physician request, 2) patient technically difficult to image (per the [place] [employer] guidelines of two or more segments not discernable within the apical view), or 3) questionable left ventricular function. ?
[2024-01-01] MEDS: ramipriL 5 MG CAPSULE PO (14:08)
[2024-01-01] MEDS: cefTRIAXone 2 GM/NS 100 ML 2 GM/100 ML BAG IVPB (14:09)
--- NOTE | 2024-01-01 16:09 | PM.PNGS ---
Progress Note: A&P Assessment and Plan (1) Bacteremia due to Gram-positive bacteria: Code(s): R78.81 - Bacteremia Status: Acute Assessment and Plan: Blood cultures 12/28 grew Streptococcus anginosus. Continue IV antibiotics. Repeat blood cultures today ordered and pending. WBC normalized. (2) Abscess, subdiaphragmatic: Code(s): K65.1 - Peritoneal abscess Status: Acute Assessment and Plan: Drained percutaneously in Radiology. CTA of the chest yesterday showed no residual abscess around pigtail drain. Will continue to monitor the drain today and continue IV antibiotics. May remove in the next 1-2 days depending on how patient progresses and repeat blood cultures. (3) Paroxysmal atrial fibrillation with rapid ventricular response: Code(s): I48.0 - Paroxysmal atrial fibrillation Status: Acute Assessment and Plan: He is on Eliquis. Cardiology following for afib RVR. Currently on IV amiodarone drip. Plan I have discussed the patient's case and plan of care with Dr. Katz. 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 He reports pain at the perc drain site, but his R shoulder pain has resolved. He is tolerating a diet. His bowels are moving. He is still in IMU on telemetry and an amiodarone drip. He has been ambulating in the room and doing well with activity. WBC normalized. Exam Const: General: comfortable and no acute distress Orientation/consciousness: patient oriented x3 GI: Inspection: non-distended GI Palp: Yes Soft to palpation, No Tenderness to palpation present (GI), No Guarding due to palpation present (GI) and No Rebound tenderness present Auscultation: normal bowel sounds Other: Right-sided posterior pigtail drain site is clean and dry. Output from the drain is relatively thin bloody serosanguinous fluid. Objective Data Vital Signs Vital Signs: Vital Signs - 24 hr 12/31/23 16:53 12/31/23 16:53 12/31/23 18:00 Temperature Pulse Rate 76 76 79 Respiratory Rate Blood Pressure 140/62 Pulse Oximetry Oxygen Delivery 12/31/23 20:03 12/31/23 20:11 12/31/23 20:12 Temperature 97.6 F Pulse Rate 80 85 80 Respiratory Rate 16 16 18 Blood Pressure 146/63 H Pulse Oximetry 100 Oxygen Delivery 12/31/23 20:00 12/31/23 20:25 12/31/23 20:25 Temperature Pulse Rate 80 78 Respiratory Rate Blood Pressure Pulse Oximetry Oxygen Delivery Room Air 12/31/23 21:56 12/31/23 22:03 12/31/23 22:00 Temperature 97.6 F Pulse Rate 80 79 79 Respiratory Rate 18 Blood Pressure 139/56 L Pulse Oximetry 93 Oxygen Delivery 01/01/24 00:23 01/01/24 00:30 01/01/24 00:00 Temperature 97.7 F Pulse Rate 81 85 Respiratory Rate 18 Blood Pressure 153/68 H Pulse Oximetry 97 Oxygen Delivery Room Air 01/01/24 00:00 01/01/24 02:00 01/01/24 02:00 Temperature 97.7 F Pulse Rate 75 79 80 Respiratory Rate 18 Blood Pressure 152/70 H Pulse Oximetry 97 Oxygen Delivery 01/01/24 02:00 01/01/24 04:31 01/01/24 04:31 Temperature Pulse Rate 79 84 84 Respiratory Rate Blood Pressure Pulse Oximetry Oxygen Delivery 01/01/24 04:30 01/01/24 04:00 01/01/24 04:41 Temperature 98.1 F Pulse Rate 85 86 Respiratory Rate 18 Blood Pressure 147/69 H Pulse Oximetry 95 Oxygen Delivery Room Air 01/01/24 06:00 01/01/24 06:00 01/01/24 06:11 Temperature 98.5 F Pulse Rate 77 77 90 Respiratory Rate 23 H Blood Pressure 155/72 H Pulse Oximetry 94 Oxygen Delivery 01/01/24 08:16 01/01/24 08:16 01/01/24 08:20 Temperature Pulse Rate 88 79 Respiratory Rate 20 Blood Pressure Pulse Oximetry 95 Oxygen Delivery Room Air 01/01/24 08:24 01/01/24 08:00 01/01/24 08:00 Temperature 98 F Pulse Rate 86 84 77 Respi
[2024-01-02] VITALS (29 sets, daily range): BP systolic 106–176; BP diastolic 68–104; PULSE 73–109; RESP 15–22; TEMP 36.4–36.6; O2SAT 92–98
[2024-01-02] MEDS: IPRATROPIUM 0.5 MG/ALBUTEROL SULFATE 2.5 MG AMPUL.NEB 3 ML INHALATION ×3 (02:23→13:54)
[2024-01-02] MEDS: AMIODARONE 360 MG/D5W 200 ML 360 MG/200 ML BAG 16.67 MG IV CONT (03:59)
[2024-01-02 05:07] LABS: Basophils Absolute Auto 0.1 K/mm3 (0.0-0.1); Basophils Percent Auto 0.7 % (0.2-1.2); Eosinophils Absolute Auto 0.3 K/mm3 (0-0.3); Eosinophils Percent Auto 3.6 % (0-4.4); Hemoglobin 12.4 g/dL (14.0-18.0); Immature Granulocyte Absolute 0.04 K/mm3 (0.00-0.031); Immature Granulocyte Percent A 0.5 % (0-0.5); Lymphocytes Absolute Auto 1.26 K/mm3 (0.9-3.2); Lymphocytes Percent Auto 15.1 % (18.3-44.2); Mean Corpuscular HGB Conc 32.6 g/dl (32-36); Mean Corpuscular Hemoglobin 29.5 pg (26-34); Mean Corpuscular Volume 90.5 fl (80-100); Mean Platelet Volume 9.7 fl (7.4-10.4); Monocytes Percent Auto 11.4 % (2.6-8.5); Neutrophils Absolute Auto 5.8 K/mm3 (1.3-6.7); Neutrophils Percent Auto 68.7 % (45.5-73.1); Platelet Count Result 420 k/mm3 (150-375); Red Cell Distribution Width 13.6 % (11.5-14.5); White Blood Count 8.4 K/mm3 (4.5-10.0)
[2024-01-02 05:24] LABS: Alanine Aminotransferase 50 U/L (6-50); Albumin Level 3.2 g/dL (3.5-5.1); Alkaline Phosphatase 45 U/L (38-126); Anion Gap 6 mmol/L (4-12); Aspartate Amino Transferase 53 U/L (17-59); Bilirubin,Total 0.6 mg/dL (0.2-1.3); Blood Urea Nitrogen 12 mg/dL (9-20); Calcium 7.9 mg/dL (8.4-10.2); Carbon Dioxide 25 mmol/L (22-30); Chloride 106 mmol/L (98-107); Estimated CRCL calculation 82 ml/min; Estimated Glomerular Filt Rate > 60; Glucose 108 mg/dL (65-110); Magnesium 2.2 mg/dL (1.6-2.3); Potassium 3.7 mmol/L (3.4-5.0); Sodium 137 mmol/L (137-145)
[2024-01-02 08:36] LABS: Glucose Point of Care 101 mg/dl (65-105)
[2024-01-02] MEDS: AZITHROMYCIN 250 MG TABLET 500 MG PO (08:41)
[2024-01-02] MEDS: METOPROLOL SUCCINATE EXT REL 50 MG TABCR PO (08:46)
[2024-01-02] MEDS: ramipriL 5 MG CAPSULE 15 MG PO (08:46)
[2024-01-02] MEDS: SENNA/DOCUSATE SODIUM TABLET 1 TAB PO ×2 (08:46→20:26)
[2024-01-02] MEDS: ATORVASTATIN 10 MG TABLET PO (08:46)
[2024-01-02] MEDS: LINACLOTIDE 72 MCG CAPSULE PO (08:47)
[2024-01-02] MEDS: APIXABAN 5 MG TABLET PO ×2 (08:59→20:26)
--- NOTE | 2024-01-02 09:45 | P.PNIM_ITS ---
Progress Note: A&P Assessment and Plan (1) Abscess, subdiaphragmatic: Code(s): K65.1 - Peritoneal abscess Status: Acute Assessment and Plan: Right shoulder right upper quadrant pain and fever for 7-10 days Abscess posterior to the liver on CT imaging Status post IR drainage with pigtail drain in place Continue IV Zosyn Cultures in process Per surgical note, abscess may contain gallstones and require subsequent surgical intervention 12/29: * IR drain placed yesterday * Cultures pending * Continue Zosyn * WBC has improved. 13.7 today down from 14.6 * Afebrile, blood pressure stable, ranging 111-105 * Telemetry ordered. Patient is running AFib in the 100s with PACs. 12/30: * Abdominal abscess culture shows moderate gram positive cocci in chains in anaerobic culture, a row but culture is positive for Streptococcus anginosus * Blood cultures are positive in both bottles for Gram-positive cocci in chains * White blood cell count 13.5 today * D/C vancomycin, continue zosyn * Monitor lactic and procalcitonin * Blood pressures are stable, afebrile 12/31: * Procal 0.6, afebrile, white cell count is resolving. * Awaiting sensitivities from cultures. On zosyn. 01/01: * Transition to Augmentin for 10 days. Surgery will remove IR drain. (2) Bacteremia due to Gram-positive bacteria: Code(s): R78.81 - Bacteremia Status: Acute Assessment and Plan: * Blood cultures are growing Gram-positive cocci in chains * Patient is started on IV vancomycin 12/29, pharmacy to dose. * Repeat blood cultures ordered for tomorrow morning 12/31: * cultures repeated this am * on zosyn * awaiting sensitivites 01/01: * Transition to Augmentin for 10 days * Blood cultures with no growth to date (3) Atrial fibrillation: Qualifiers: Atrial fibrillation type: unspecified Qualified Code(s): I48.91 - Unspecified atrial fibrillation Code(s): I48.91 - Unspecified atrial fibrillation Status: Chronic Assessment and Plan: 1 prior episode of atrial fibrillation when he underwent neck surgery Bedside monitoring appears to be atrial fibrillation borderline tachycardic rate of 105 Patient had not received metoprolol yet today so this was given postprocedure with improvement in rate 12/29: * Continue metoprolol 50 mg daily. May need to titrate up 12/30: * Patient went into a rapid ventricular response with heart rate in the 150s overnight. * Patient received IV diltiazem and IV Lopressor without result. Started on a diltiazem drip and admitted to IMU * Cardiology has been consulted on the case and they are seeing him this morning * He has been transition to an amiodarone drip. Suspect RVR is from acute infection. Cards does not anticipate needing amiodarone buttermaker continuous churn. * Echo is pending * Continue metoprolol * Continue Eliquis b.i.d. 12/31: * Cardiology following * Currently a-fib with rate in the 80-90's. * ECHO pending completion 01/01: * Echo showed LV hypertrophy with good systolic function and grade 2 diastolic noncompliance, sclerotic aortic valve * Anticipate transitioning from amnio drip to oral agent today * Suspect cardiology may want to monitor him for 24 hours after deescalating drip before discharge (4) Anticoagulant long-term use: Code(s): Z79.01 - director long term care (current) use of anticoagulants Status: Acute Assessment and Plan: Patient is on Eliquis for atrial fibrillation with elevated chads Vasc score He has not had Eliquis for least 24 hours prior to procedure
--- NOTE | 2024-01-02 09:45 | PM.IMPN ---
Progress Note: A&P Assessment and Plan (1) Abscess, subdiaphragmatic: Code(s): K65.1 - Peritoneal abscess Status: Acute Assessment and Plan: Right shoulder right upper quadrant pain and fever for 7-10 days Abscess posterior to the liver on CT imaging Status post IR drainage with pigtail drain in place Continue IV Zosyn Cultures in process Per surgical note, abscess may contain gallstones and require subsequent surgical intervention 12/29: IR drain placed yesterday Cultures pending Continue Zosyn WBC has improved. 13.7 today down from 14.6 Afebrile, blood pressure stable, ranging 111-105 Telemetry ordered. Patient is running AFib in the 100s with PACs. 12/30: Abdominal abscess culture shows moderate gram positive cocci in chains in anaerobic culture, a row but culture is positive for Streptococcus anginosus Blood cultures are positive in both bottles for Gram-positive cocci in chains White blood cell count 13.5 today D/C vancomycin, continue zosyn Monitor lactic and procalcitonin Blood pressures are stable, afebrile 12/31: Procal 0.6, afebrile, white cell count is resolving. Awaiting sensitivities from cultures. On zosyn. 01/01: Transition to Augmentin for 10 days. Surgery will remove IR drain. (2) Bacteremia due to Gram-positive bacteria: Code(s): R78.81 - Bacteremia Status: Acute Assessment and Plan: Blood cultures are growing Gram-positive cocci in chains Patient is started on IV vancomycin 12/29, pharmacy to dose. Repeat blood cultures ordered for tomorrow morning 12/31: cultures repeated this am on zosyn awaiting sensitivites 01/01: Transition to Augmentin for 10 days Blood cultures with no growth to date (3) Atrial fibrillation: Qualifiers: Atrial fibrillation type: unspecified Qualified Code(s): I48.91 - Unspecified atrial fibrillation Code(s): I48.91 - Unspecified atrial fibrillation Status: Chronic Assessment and Plan: 1 prior episode of atrial fibrillation when he underwent neck surgery Bedside monitoring appears to be atrial fibrillation borderline tachycardic rate of 105 Patient had not received metoprolol yet today so this was given postprocedure with improvement in rate 12/29: Continue metoprolol 50 mg daily. May need to titrate up 12/30: Patient went into a rapid ventricular response with heart rate in the 150s overnight. Patient received IV diltiazem and IV Lopressor without result. Started on a diltiazem drip and admitted to IMU Cardiology has been consulted on the case and they are seeing him this morning He has been transition to an amiodarone drip. Suspect RVR is from acute infection. 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 Echo is pending Continue metoprolol Continue Eliquis b.i.d. 12/31: Cardiology following Currently a-fib with rate in the 80-90's. ECHO pending completion 01/01: Echo showed LV hypertrophy with good systolic function and grade 2 diastolic noncompliance, sclerotic aortic valve Anticipate transitioning from amnio drip to oral agent today Suspect cardiology may want to monitor him for 24 hours after deescalating drip before discharge (4) Anticoagulant long-term use: Code(s): Z79.01 - [facility] (current) use of anticoagulants Status: Acute Assessment and Plan: Patient is on Eliquis for atrial fibrillation with elevated chads Vasc score He has not had Eliquis for least 24 hours prior to procedure Restarted evening dose 12/28 (5) Hypertension: Qualifiers: Hypertension type: primary hypertension Qualified Code(s): I10 - Essential (primary) hypertension Code(s): I10 - Essential (primary) hypertension Status: Acute Assessment and Plan: Blood pressure reviewed on 12/28, stable Continue home medications 12/30: Blood pressure reviewed (6) Hyperlipidemia: Code(s): E78.5 - Hyperlipidemia, unspecif
--- NOTE | 2024-01-02 10:31 | PM.PNGS ---
Progress Note: A&P Assessment and Plan (1) Bacteremia due to Gram-positive bacteria: Code(s): R78.81 - Bacteremia Status: Acute Assessment and Plan: Blood cultures 12/28 grew Streptococcus anginosus. Continue IV antibiotics. Repeat blood cultures 12/31 preliminary with no growth to date. WBC remains normal. (2) Abscess, subdiaphragmatic: Code(s): K65.1 - Peritoneal abscess Status: Acute Assessment and Plan: Drained percutaneously in Radiology. CTA chest showed no residual fluid collection around pigtail drain. Possibly remove drain later today or tomorrow. Continue to monitor. (3) Paroxysmal atrial fibrillation with rapid ventricular response: Code(s): I48.0 - Paroxysmal atrial fibrillation Status: Acute Assessment and Plan: He is on Eliquis. Cardiology following for afib. Rate is currently controlled and appears to be in sinus rhythm at times. Currently on IV amiodarone drip. Plan I have discussed the patient's case and plan of care with Dr. Katz. Subjective Subjective Date/Time Seen: 01/02/24 10:31 Patient reports: no new complaints and afebrile Interval history: Patient seen today in IMU and still on amiodarone infusion. He denies any new complaints. He slept well last night. He only has some pain at the perc drain site, but no other pain at this time. He is still complaining of a rash on his left upper back. This has been there a few days and he initially thought this was related to sweating in bed. The rash looks no worse today. His only complaint is that it itches. His was applying some [id number] cortisone cream at the bedside. I instructed him to stop using this and I would place orders for cream to apply. Exam Const: General: comfortable and no acute distress Orientation/consciousness: patient oriented x3 GI: Inspection: non-distended GI Palp: Yes Soft to palpation, No Tenderness to palpation present (GI), No Guarding due to palpation present (GI) and No Rebound tenderness present Auscultation: normal bowel sounds Other: Right posterior pigtail drain with minimal slightly cloudy serosanguineous drainage Objective Data Vital Signs Vital Signs: Vital Signs - 24 hr 01/01/24 11:41 01/01/24 12:00 01/01/24 13:22 Temperature 97.1 F L Pulse Rate 67 84 70 Respiratory Rate 16 20 Blood Pressure 157/90 H 157/90 H Pulse Oximetry 97 Oxygen Delivery 01/01/24 12:00 01/01/24 13:30 01/01/24 14:00 Temperature Pulse Rate 84 86 92 Respiratory Rate 20 Blood Pressure Pulse Oximetry Oxygen Delivery 01/01/24 14:00 01/01/24 16:17 01/01/24 16:25 Temperature 98 F Pulse Rate 92 84 86 Respiratory Rate 16 Blood Pressure 133/70 Pulse Oximetry 98 Oxygen Delivery 01/01/24 16:25 01/01/24 16:00 01/01/24 16:00 Temperature Pulse Rate 82 91 Respiratory Rate Blood Pressure Pulse Oximetry Oxygen Delivery Room Air 01/01/24 18:00 01/01/24 18:00 01/01/24 19:47 Temperature 97.8 F Pulse Rate 84 84 88 Respiratory Rate 18 Blood Pressure 152/78 H Pulse Oximetry 96 Oxygen Delivery 01/01/24 20:33 01/01/24 20:33 01/01/24 20:00 Temperature Pulse Rate 81 88 Respiratory Rate 20 Blood Pressure Pulse Oximetry 98 Oxygen Delivery Room Air 01/01/24 20:43 01/01/24 20:00 01/01/24 20:00 Temperature Pulse Rate 83 80 Respiratory Rate 18 Blood Pressure Pulse Oximetry Oxygen Delivery Room Air 01/01/24 22:02 01/01/24 22:00 01/01/24 22:00 Temperature 97.6 F Pulse Rate 80 85 85 Respiratory Rate 18 Blood Pressure 165/91 H Pulse Oximetry 97 Oxygen Delivery 01/01/24 23:43 01/02/24 00:00 01/02/24 00:00 Temperature 97.7 F Pulse Rate 86 77 Respiratory Rate 18 Blood Pressure 154/87 H Pulse Oximetry 94 Oxygen Delivery Room Air 01/02/24 01:38 01/02/24 00:00 01/02/24 02:00 Temperature 97.9 F Pulse Rate 81 81 82 Respirat
[2024-01-02 12:04] LABS: Glucose Point of Care 148 mg/dl (65-105)
--- NOTE | 2024-01-02 14:38 | PM.PNCARD ---
Progress Note: A&P Assessment and Plan (1) Paroxysmal atrial fibrillation with rapid ventricular response: Code(s): I48.0 - Paroxysmal atrial fibrillation Status: Acute Assessment and Plan: He did convert to sinus rhythm on amiodarone but continues to have intermittent AF RVR which he is asymptomatic with. Suspect AFIB triggered in setting of infection, and his AFIB should improve as his infection improves. Do not anticipate that this patient will need long-term Amiodarone therapy. Will shift to p.o. amiodarone today 400mg b.i.d. Should be decreased to 200mg daily at discharge. Echocardiogram showed normal LVSF, grade II diastolic dysfunction. Continue PO Toprol. Continue Eliquis 5mg BID for cardioembolic risk reduction (2) Abscess, subdiaphragmatic: Code(s): K65.1 - Peritoneal abscess Status: Acute Assessment and Plan: As per General Surgery. (3) Hypertension: Qualifiers: Hypertension type: primary hypertension Qualified Code(s): I10 - Essential (primary) hypertension Code(s): I10 - Essential (primary) hypertension Status: Acute Assessment and Plan: Improving. Further adjustments to antihypertensive regimen can be made as an outpatient. (4) Hyperlipidemia: Code(s): E78.5 - Hyperlipidemia, unspecified Status: Acute Assessment and Plan: Continue statin (5) Anticoagulant long-term use: Code(s): Z79.01 - [facility] (current) use of anticoagulants Status: Acute Assessment and Plan: Continue Eliquis 5mg BID. Plan This is a patient of Dr. Webb's, however, as Dr. Webb is off at this time, we will be seeing the patient until Dr. Webb returns. Subjective Date/time seen: 01/02/24 14:38 Interval history: Cardiology follow up for atrial fibrillation He is feeling well this morning and has no specific complaints. Telemetry shows sinus rhythm generally but he is having paroxysms of rapid atrial fibrillation. He denies feeling any palpitations, chest pain, shortness of breath. Date of service 01/02/2024: Continues to feel well. No palpitations, shortness of breath, chest pain. His telemetry continues to show intermittent tachycardia but generally he is in sinus rhythm with frequent PAC's Review of Systems Review of Systems: All systems reviewed & are unremarkable except as noted in HPI and below (HPI) Exam Const: General: comfortable and no acute distress HENMT: Mouth: Yes moist mucous membranes Eyes: General: appearance normal, both eyes and all related structures Sclera: sclerae normal Neck: Neck: supple Resp: Effort & Inspection: normal respiratory effort Cardio: Rate: regular rate and tachycardic Rhythm: regular rhythm and abnormal rhythm irregularly irregular Skin: General skin exam: normal color Neuro: Speech: normal speech Extrem: Other: No edema Psych: Mental Status: mental status grossly normal Affect: normal affect Objective Data Vital Signs Vital Signs: Vital Signs - 24 hr 01/01/24 16:17 01/01/24 16:25 01/01/24 16:25 Temperature 36.6 C Pulse Rate 84 86 82 Respiratory Rate 16 Blood Pressure 133/70 Pulse Oximetry 98 Oxygen Delivery 01/01/24 16:00 01/01/24 16:00 01/01/24 18:00 Temperature Pulse Rate 91 84 Respiratory Rate Blood Pressure Pulse Oximetry Oxygen Delivery Room Air 01/01/24 18:00 01/01/24 19:47 01/01/24 20:33 Temperature 36.6 C Pulse Rate 84 88 Respiratory Rate 18 Blood Pressure 152/78 H Pulse Oximetry 96 98 Oxygen Delivery Room Air 01/01/24 20:33 01/01/24 20:00 01/01/24 20:43 Temperature Pulse Rate 81 88 83 Respiratory Rate 20 18 Blood Pressure Pulse Oximetry Oxygen Delivery 01/01/24 20:00 01/01/24 20:00 01/01/24 22:02 Temperature 36.4 C Pulse Rate 80 80 Respiratory Rate 18 Blood Pressure 165/91 H Pulse Oximetry 97 Oxygen Delivery Room Air 12/31
--- NOTE | 2024-01-02 14:40 | ECG_ITS ---
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 Measurements Intervals [place] Rate: 92 P: 34 DC: 162 QRS: -6 QRSD: 85 T: 1 QT: 396 QTc: 490 Interpretive Statements SINUS RHYTHM WITH FREQUENT SUPRAVENTRICULAR PREMATURE COMPLEXES MINIMAL VOLTAGE CRITERIA FOR LVH, CONSIDER NORMAL VARIANT [MEETS CRITERIA IN ONE OF: R(aVL), S(V1), R(V5), R(V5/V6)+S(V1)] ABNORMAL RHYTHM ECG Compared to ECG 12/31/2023 13:51:30 No significant changes Electronically Signed On 01-03-2024 13:49:04 CDT by Beau Lynn M.D.
[2024-01-02] MEDS: DIPHENHYDRAMINE 1%/ZINC 0.1% CREAM 30 GM TUBE 1 APPLIC TOPICAL ×2 (16:08→20:26)
[2024-01-02] MEDS: AMIODARONE HCL 200 MG TABLET 400 MG PO (17:02)
[2024-01-02 17:24] LABS: Glucose Point of Care 114 mg/dl (65-105)
[2024-01-02] MEDS: AMOXICILLIN/CLAVULANATE K 875-125 MG TAB 1 TABLET PO (20:26)
[2024-01-03] VITALS (9 sets, daily range): BP systolic 157–161; BP diastolic 73–91; PULSE 73–96; RESP 18; TEMP 36.2–36.9; O2SAT 95–97
[2024-01-03 04:03] LABS: Basophils Absolute Auto 0.1 K/mm3 (0.0-0.1); Eosinophils Absolute Auto 0.4 K/mm3 (0-0.3); Eosinophils Percent Auto 4.4 % (0-4.4); Hematocrit 39.3 % (42.0-52.0); Hemoglobin 12.6 g/dL (14.0-18.0); Immature Granulocyte Absolute 0.06 K/mm3 (0.00-0.031); Immature Granulocyte Percent A 0.6 % (0-0.5); Lymphocytes Absolute Auto 1.47 K/mm3 (0.9-3.2); Lymphocytes Percent Auto 15.6 % (18.3-44.2); Mean Corpuscular HGB Conc 32.1 g/dl (32-36); Mean Corpuscular Hemoglobin 29.1 pg (26-34); Mean Corpuscular Volume 90.8 fl (80-100); Mean Platelet Volume 9.5 fl (7.4-10.4); Monocytes Percent Auto 10.8 % (2.6-8.5); Neutrophils Absolute Auto 6.4 K/mm3 (1.3-6.7); Neutrophils Percent Auto 67.6 % (45.5-73.1); Platelet Count Result 448 k/mm3 (150-375); Red Blood Count 4.33 M/mm3 (4.6-6.20); Red Cell Distribution Width 13.4 % (11.5-14.5); White Blood Count 9.4 K/mm3 (4.5-10.0)
[2024-01-03 04:12] LABS: Alanine Aminotransferase 57 U/L (6-50); Albumin Level 3.2 g/dL (3.5-5.1); Alkaline Phosphatase 60 U/L (38-126); Anion Gap 4 mmol/L (4-12); Aspartate Amino Transferase 49 U/L (17-59); Bilirubin,Total 0.5 mg/dL (0.2-1.3); Blood Urea Nitrogen 11 mg/dL (9-20); Calcium 8.5 mg/dL (8.4-10.2); Carbon Dioxide 29 mmol/L (22-30); Chloride 104 mmol/L (98-107); Estimated CRCL calculation 73 ml/min; Estimated Glomerular Filt Rate > 60; Glucose 102 mg/dL (65-110); Magnesium 2.2 mg/dL (1.6-2.3); Potassium 3.7 mmol/L (3.4-5.0); Sodium 137 mmol/L (137-145)
[2024-01-03] MEDS: AZITHROMYCIN 250 MG TABLET 500 MG PO (08:58)
[2024-01-03] MEDS: ramipriL 5 MG CAPSULE 15 MG PO (08:59)
[2024-01-03] MEDS: APIXABAN 5 MG TABLET PO (08:59)
[2024-01-03] MEDS: METOPROLOL SUCCINATE EXT REL 50 MG TABCR PO (08:59)
[2024-01-03] MEDS: AMIODARONE HCL 200 MG TABLET 400 MG PO (08:59)
[2024-01-03] MEDS: ATORVASTATIN 10 MG TABLET PO (09:00)
[2024-01-03] MEDS: LINACLOTIDE 72 MCG CAPSULE PO (09:00)
[2024-01-03] MEDS: DIPHENHYDRAMINE 1%/ZINC 0.1% CREAM 30 GM TUBE 1 APPLIC TOPICAL (09:00)
[2024-01-03] MEDS: POTASSIUM CHLORIDE 20 MEQ ER TABLET 40 MEQ PO (09:00)
[2024-01-03] MEDS: SENNA/DOCUSATE SODIUM TABLET 1 TAB PO (09:00)
[2024-01-03] MEDS: AMOXICILLIN/CLAVULANATE K 875-125 MG TAB 1 TABLET PO (09:00)
--- NOTE | 2024-01-03 10:51 | PM.PNGS ---
Progress Note: A&P Assessment and Plan (1) Abscess, subdiaphragmatic: Code(s): K65.1 - Peritoneal abscess Status: Acute Assessment and Plan: Drained percutaneously in Radiology with repeat imaging showing no residual fluid collection around the drain. Pigtail drain was removed yesterday. Okay to discharge from a surgical standpoint on Augmentin for another 10 days. We will schedule him to follow-up in our office in 2 weeks. (2) Bacteremia due to Gram-positive bacteria: Code(s): R78.81 - Bacteremia Status: Acute Assessment and Plan: Resolving. Repeat blood cx with no growth. Transitioned to oral antibiotics. (3) Paroxysmal atrial fibrillation with rapid ventricular response: Code(s): I48.0 - Paroxysmal atrial fibrillation Status: Acute Assessment and Plan: Transitioned to oral amiodarone. Plan I have discussed the patient's case and plan of care with Dr. Katz. Subjective Subjective Date/Time Seen: 01/03/24 10:51 Patient reports: no new complaints, feels better, tolerating a regular diet, voiding w/o difficulty, flatus, bowel movement (Large BM this morning) and afebrile Interval history: Patient reports still having some right lateral subcostal pain with deep breathing, which has been present since admission. The pain is no worse and actually seems a little better. His percutaneous drain was removed yesterday. No new complaints. No other issues overnight. Exam Const: General: comfortable and no acute distress GI: Inspection: non-distended GI Palp: Yes Soft to palpation, No Tenderness to palpation present (GI) and No Guarding due to palpation present (GI) Auscultation: normal bowel sounds Other: Gauze dressing dry and intact from previous percutaneous drain Objective Data Vital Signs Vital Signs: Vital Signs - 24 hr 01/02/24 11:58 01/02/24 12:00 01/02/24 12:00 Temperature 98 F Pulse Rate 92 73 Respiratory Rate 15 Blood Pressure 137/70 Pulse Oximetry 97 Oxygen Delivery Room Air 01/02/24 13:55 01/02/24 14:10 01/02/24 14:48 Temperature Pulse Rate 88 85 93 Respiratory Rate 20 20 Blood Pressure Pulse Oximetry Oxygen Delivery 01/02/24 14:00 01/02/24 16:00 01/02/24 16:00 Temperature 97.9 F Pulse Rate 98 85 86 Respiratory Rate 17 Blood Pressure 106/75 Pulse Oximetry 98 Oxygen Delivery 01/02/24 16:00 01/02/24 17:02 01/02/24 18:00 Temperature Pulse Rate 84 77 Respiratory Rate Blood Pressure Pulse Oximetry Oxygen Delivery Room Air 01/02/24 19:47 01/02/24 20:00 01/02/24 22:00 Temperature 97.5 F L Pulse Rate 85 83 93 Respiratory Rate 18 Blood Pressure 155/103 H Pulse Oximetry 96 Oxygen Delivery 01/02/24 23:31 01/03/24 00:00 01/03/24 02:00 Temperature 98 F Pulse Rate 93 77 77 Respiratory Rate 18 Blood Pressure 165/104 H Pulse Oximetry 96 Oxygen Delivery 01/03/24 04:26 01/03/24 04:00 01/03/24 06:00 Temperature 98.4 F Pulse Rate 90 87 87 Respiratory Rate 18 Blood Pressure 157/91 H Pulse Oximetry 95 Oxygen Delivery 01/03/24 07:54 01/03/24 08:59 01/03/24 08:59 Temperature 97.2 F L Pulse Rate 96 92 92 Respiratory Rate 18 Blood Pressure 157/73 H Pulse Oximetry 95 Oxygen Delivery Intake/Output Intake/Output: Intake & Output 12/31/23 01/01/24 01/02/24 01/03/24 23:59 23:59 23:59 23:59 Intake Total 1535.1 3119.1 3354.3 600 Output Total 700 2050 1330 350 Balance 835.1 1069.1 2024.3 250 Meds/Results Medications: Active Medications Generic Name Dose Route Start Last Admin Trade Name Macoq PRN Reason Stop Dose Admin Acetaminophen 650 mg 12/29/23 11:37 12/31/23 02:59 Acetaminophen 325 Mg Tablet PO 650 mg Q4H PRN Administration Mild Pain (1-3) or Fever Hydrocodone Bitart/Acetaminophen 1 tab 12/29/23 11:32 12/29/23 21:29 Hydrocodone/Acetaminophen (*Crx) 5-325 Mg Tablet PO
--- NOTE | 2024-01-03 11:22 | PM.PNCARD ---
Progress Note: A&P Assessment and Plan (1) Paroxysmal atrial fibrillation with rapid ventricular response: Code(s): I48.0 - Paroxysmal atrial fibrillation Status: Acute Assessment and Plan: He did convert to sinus rhythm on Amiodarone. Suspect AFIB triggered in setting of infection, and his AFIB should improve as his infection improves. Do not anticipate that this patient will need long-term Amiodarone therapy. Shifted to PO Amiodarone at 400mg BID. Should be decreased to 200mg daily at discharge. Echocardiogram showed normal LVSF, grade II diastolic dysfunction. Continue PO Toprol. Continue Eliquis 5mg BID for cardioembolic risk reduction (2) Abscess, subdiaphragmatic: Code(s): K65.1 - Peritoneal abscess Status: Acute Assessment and Plan: As per General Surgery. (3) Hypertension: Qualifiers: Hypertension type: primary hypertension Qualified Code(s): I10 - Essential (primary) hypertension Code(s): I10 - Essential (primary) hypertension Status: Acute Assessment and Plan: Improving. Further adjustments to antihypertensive regimen can be made as an outpatient. (4) Hyperlipidemia: Code(s): E78.5 - Hyperlipidemia, unspecified Status: Acute Assessment and Plan: Continue statin (5) Anticoagulant long-term use: Code(s): Z79.01 - residential (current) use of anticoagulants Status: Acute Assessment and Plan: Continue Eliquis 5mg BID. Plan This is a patient of Dr. Gonzales, however, as Dr. Webb is off at this time, we will be seeing the patient until Dr. Webb returns. Cardiology will sign off at this time. Instructed patient to follow up with Dr. Webb. Please call us back if needed. Subjective Date/time seen: 01/03/24 11:22 Interval history: Cardiology follow up for atrial fibrillation HPI: We are consulted for atrial fibrillation with RVR. This is a patient of Dr. Gonzales, however, as Dr. Webb is off at this time, we will be seeing the patient until Dr. Webb returns. This is an 78 year old male with paroxysmal atrial fibrillation on Eliquis, hypertension, hyperlipidemia who presented with fevers, not feeling well, abdominal pain, right shoulder pain, CT of the abdomen and pelvis showed 8.7 x 5.4 x 4.0 cm abscess centered posterior to the liver with involvement of the posterior aspect of right hepatic lobe. He underwent successful CT-guided right subphrenic abscess drainage with placement of catheter. Overnight, patient went into AFIB with RVR. He was started on Diltiazem drip and given IV Digoxin, however, remains in RVR. Patient tells me he has been compliant with Eliquis at home, however, he has only been taking it once daily. He did not realize it was a BID medication. Date of service 12/31: He is feeling well this morning and has no specific complaints. Telemetry shows sinus rhythm generally but he is having paroxysms of rapid atrial fibrillation. He denies feeling any palpitations, chest pain, shortness of breath. Date of service 01/02/2024: Continues to feel well. No palpitations, shortness of breath, chest pain. His telemetry continues to show intermittent tachycardia but generally he is in sinus rhythm with frequent PAC's Date of service 01/02: Remains in sinus rhythm. No cardiac symptoms. Review of Systems Review of Systems: All systems reviewed & are unremarkable except as noted in HPI and below (HPI) Exam Const: General: comfortable and no acute distress HENMT: Mouth: Yes moist mucous membranes Eyes: General: appearance normal, both eyes and all related structures Sclera: sclerae normal Resp: Effort & Inspection: normal respiratory effort Cardio: Rate: regular rate Rhythm: regular rhythm Skin: General skin exam: normal color Neuro: Speech: normal speech Psych: Mental Status: mental status grossly normal Affect: normal affect Objective Data Vital Signs Vital Signs: Vital Signs -
--- NOTE | 2024-01-03 13:00 | PM.DS ---
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, atrial fibrillation, hypertension, hyperlipidemia, history of acute cholecystitis DS: Discharge Diagnosis Discharge Diagnosis (1) Abscess, subdiaphragmatic: Code(s): K65.1 - Peritoneal abscess Status: Acute (2) Bacteremia due to Gram-positive bacteria: Code(s): R78.81 - Bacteremia Status: Acute (3) Anticoagulant long-term use: Code(s): Z79.01 - shelter (current) use of anticoagulants Status: Acute (4) Hypertension: Qualifiers: Hypertension type: primary hypertension Qualified Code(s): I10 - Essential (primary) hypertension Code(s): I10 - Essential (primary) hypertension Status: Acute (5) Hyperlipidemia: Code(s): E78.5 - Hyperlipidemia, unspecified Status: Acute (6) Hx of acute cholecystitis: Code(s): Z87.19 - Personal history of other diseases of the digestive system Status: Acute (7) Chronic constipation: Code(s): K59.09 - Other constipation Status: Acute (8) Paroxysmal atrial fibrillation with rapid ventricular response: Code(s): I48.0 - Paroxysmal atrial fibrillation Status: Acute DS: Summary Hospital Course Hospital Course: This is an 78-year-old male patient who was admitted for right upper quadrant abscess. He about a year ago he had a laparoscopic cholecystectomy and patient has recently been dealing with right upper quadrant pain and fevers. Patient found to be in atrial fibrillation does have a history of 1 prior episode of atrial fibrillation when he underwent neck surgery. Patient had an IR drain placed in the abscess and was initiated on IV antibiotics as well as diltiazem drip for atrial fibrillation. There was some difficulty obtaining control of patient's paroxysmal atrial fibrillation and ultimately he ended up on any amiodarone drip which was transitioned to oral amiodarone which will be continued at least short term after discharge. Abscess drained well and is responding to antibiotics. There was bloodstream infection of strep species with broad susceptibility. Repeat blood cultures negative growth to date. Patient was transitioned to Augmentin which will be continued for total of 10 days. Patient is to have surgical follow-up in 2 weeks and Cardiology follow-up in 1-2 months. Status at Discharge Cognitive/behavioral status at discharge: awake, alert, oriented and pleasant Functional status at discharge: independent ambulation Overall status at discharge: patient is back to baseline Time Spent with Patient Time attestation: Total time spent providing and/or coordinating discharge services:45 minutes Time spent: Greater than 30 minutes Exam Narrative: GENERAL: Well-appearing, well-nourished, and in no acute distress. HEAD: Normocephalic, atraumatic. ENT:? Mucous membranes moist. CHEST: Clear to auscultation.? No respiratory distress. HEART: Regular rate and rhythm. ? Normal peripheral pulses. ABDOMEN: Soft, obese, nondistended. mild right upper quadrant tenderness to deep palpation but improved over admission EXTREMITIES: Normal range of motion. No peripheral edema. SKIN: Warm dry normal color NEURO: Alert and oriented x3. PSYCH: Normal mood and affect DS: Data Data Completed and Pending Labs on day of discharge: Labs from last 24 hours 01/03/24 01/02/24 03:51 15:58 WBC 9.4 RBC 4.33 L Hgb 12.6 L Hct 39.3 L MCV 90.8 MCH 29.1 MCHC 32.1 RDW 13.4 Plt Count 448 H MPV 9.5 Immature Gran % (Auto) 0.6 H Neut % (Auto) 67.6 Lymph % (Auto) 15.6 L Wake % (Auto) 10.8 H Eos % (Auto) 4.4 Baso % (Auto) 1.0 Lymph # (Auto) 1.47 Wake # (Auto) 1.0 H Eos # (Auto) 0.4 H Baso # (Auto) 0.1 Abs Immat Gran (auto) 0.06 H Absolute Neuts (auto) 6.4 Absolute Nucleated RBC 0.000 Nucleated RBC % 0.0 Sodium 1
== END 2024-01-03 14:20 | disposition home or self-care (01) | DRG 372 ==
LOC: ANHED 12:04 → ANHIMU 12:19 → ANH3MEDSUR 01-04 10:40 → ANHIMU 01-04 10:40
PROVIDERS: Internal Medicine; Nurse Practitioner Acute Care; Radiology Diagnostic Radiology; Admitting Provider Family Medicine; Emergency Provider Family Medicine; Visit Provider Nurse Practitioner
DX: K65.1 Peritoneal abscess (principal); R78.81 Bacteremia; Z90.49 Acquired absence of other specified parts of digestive tract; I48.0 Paroxysmal atrial fibrillation; B95.4 Other streptococcus as the cause of diseases classified elsewhere; I10 Essential (primary) hypertension; E78.5 Hyperlipidemia, unspecified; K59.09 Other constipation; Z87.891 Personal history of nicotine dependence; Z79.01 Long term (current) use of anticoagulants; Z79.82 Long term (current) use of aspirin
CPT/HCPCS: 36415; 71275; 74177; 75989; 80053; 81001; 82948; 83605; 83735; 84145; 84443; 84484; 85025; 85380; 85610; 87040; 87070; 87075; 87077; 87181; 87205; 93005; 94640; 96360; 96361; 99285; A9270; C1729; C1769; C8929; J0282; J0692; J0696; J1160; J1170; J1836; J2543; J3370; J7030; J7040; Q9957; Q9967

== ENCOUNTER 2024-12-05 10:55 | Outpatient (CLI) | payer MEDICARE, SELFPAY ==
--- OUTSIDE RECORDS SUMMARY | 2024-12-05 11:11 | XMS_ITS | Patient Health Record ---
[facility] Organization [facility] Address 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 Cherise Aponte Notes/Report: 0 0 0 0 0 COLOR DARK YELLOW YELLOW APPEARANCE CLEAR CLEAR SPECIFIC GRAVITY 1.029 1.001-1.035 PH 6.0 5.0-8.0 GLUCOSE NEGATIVE NEGATIVE BILIRUBIN NEGATIVE NEGATIVE KETONES TRACE NEGATIVE OCCULT BLOOD TRACE NEGATIVE PROTEIN TRACE NEGATIVE NITRITE NEGATIVE NEGATIVE LEUKOCYTE ESTERASE TRACE NEGATIVE WBC 0-5 < OR = 5 /HPF RBC 3-10 < OR = 2 /HPF SQUAMOUS EPITHELIAL CELLS NONE SEEN < OR = 5 /HPF BACTERIA NONE SEEN NONE SEEN /HPF HYALINE CAST NONE SEEN NONE SEEN /LPF TSH W/REFLEX TO FT4 Reviewed date:09/10/2024 08:10:21 AM Interpretation: Performing Lab:[facility]-[id number] Angelic Lopez, [id number]- [address]38 DR. Cherise Aponte Notes/Report: 0 0 0 0 0 TSH W/REFLEX TO FT4 3.17 0.40-4.50 mIU/L LIPID PANEL Reviewed date:09/10/2024 08:10:21 AM Interpretation: Performing Lab:[facility]-[id number] [place] [address] [id number] [address] DR. Cherise Aponte Notes/Report: 0 0 0 0 0 CHOLESTEROL, TOTAL 201 <200 mg/dL HDL CHOLESTEROL 58 > OR = 40 mg/dL TRIGLYCERIDES 152 <150 mg/dL LDL-CHOLESTEROL 116 Desirable range <100 mg/dL for primary prevention; <70 mg/dL for patients with CHD or diabetic patients Reference range: <100 Saroj SS et al. CANDICE. 2013;310(19): 9668-9764 estimation of LDL-C. LDL-C is now calculated using the [facility] (http://education.InflaRx/faq/FAQ16 4) with > or = 2 CHD risk factors. calculation, which is a validated novel method providing better accuracy than the Friedewald equation in the CHOL/HDLC RATIO 3.5 <5.0 (calc) NON HDL CHOLESTEROL 143 <130 mg/dL (calc) For patients with diabetes plus 1 major ASCVD risk (LDL-C of <70 mg/dL) is considered a therapeutic option. factor, treating to a non-HDL-C goal of <100 mg/dL [facility] Reviewed date:09/10/2024 08:10:21 AM Interpretation: Performing Lab:[facility], [facility]-[id number], [id number] [address] DR. Cherise Aponte Notes/Report: 0 0 0 0 0 GLUCOSE 83 65-99 mg/dL Fasting reference interval UREA NITROGEN (BUN) 18 7-25 mg/dL CREATININE 0.93 0.70-1.22 mg/dL EGFR 83 > OR = 60 mL/min/1.73m2 BUN/CREATININE RATIO SEE NOTE: 6-22 (calc) reference range. Not Reported: BUN and Creatinine are within SODIUM 141 135-146 mmol/L POTASSIUM 4.4 3.5-5.3 mmol/L CHLORIDE 102 98-110 mmol/L CARBON DIOXIDE 30 20-32 mmol/L CALCIUM 9.6 8.6-10.3 mg/dL PROTEIN, TOTAL 7.0 6.1-8.1 g/dL ALBUMIN 4.0 3.6-5.1 g/dL GLOBULIN 3.0 1.9-3.7 g/dL (calc) ALBUMIN/GLOBULIN RATIO 1.3 1.0-2.5 (calc) BILIRUBIN, TOTAL 0.6 0.2-1.2 mg/dL ALKALINE PHOSPHATASE 76 35-144 U/L AST 22 10-35 U/L ALT 20 9-46 U/L CBC (INCLUDES DIFF/PLT) Reviewed date:09/10/2024 08:10:21 AM Interpretation: Performing Lab:[facility], [facility]-[id number], [id number] [address] DR. Cherise Aponte Notes/Report: 0 0 0 0 0 WHITE BLOOD CELL COUNT 7.8 3.8-10.8 Thousand/ uL RED BLOOD CELL COUNT 5.14 4.20-5.80 Million/uL HEMOGLOBIN 16.0 13.2-17.1 g/dL HEMATOCRIT 49.4 38.5-50.0 % MCV 96.1 80.0-100.0 fL MCH 31.1 27.0-33.0 pg MCHC 32.4 32.0-36.0 g/dL interpreted with caution in correlation with other not clinically significant; however, it should be value (in the range of 30 to 32 g/dL) is most likely red cell parameters and the patient's clinical For adults, a slight decrease in the calculated MCHC condition. RDW 14.0 11.0-15.0 % PLATELET COUNT 286 140-400 Thousand/uL MPV 10.6 7.5-12.5 fL ABSOLUTE NEUTROPHILS 5132 5078-5208 cells/uL ABSOLUTE LYMPHOCYTES 8066 305-4202 cells/uL ABSOLUTE MONOCYTES 772 200-950 cells/uL ABSOLUTE EOSINOPHILS 187 15-500 cells/uL ABSOLUTE BASOPHILS 78 0-200 cells/uL NEUTROPHILS 65.8 LYMPHOCYTES 20.9 MONOCYTES 9.9 EOSINOPHILS 2.4 BASOPHILS 1.0 Cardiology : 12 Lead EKG Reviewed date:09/11/2024 09:17:00 AM Interpretation: Performing Lab: Notes/Report: MR LUMBAR SPINE W-O CONTRAST Reviewed date:06/05/2024 03:25:07 PM Interpretation: Performing Lab: Notes/Report: Reason For Referral No Information Medications Medication SIG (Take, Route, Frequency, Duration) Notes Start Date End Date Status Atorvastatin Calcium 10 MG 1 tablet Orally Once a day for 90 days Active Eliquis 5 MG 1 tablet Orally twic e a day Active linaCLOtide 145 MCG 1 capsule at least 30 minutes before the first meal of the day on an empty stomach Orally Once a day for 30 days As needed as needed 09/06/2023 Active Metoprolol Tartrate 50 MG 1 tablet with food Orally once a dAY for 90 days Active MiraLax 17 GM 1 packet mixed with 8 ounces of fluid Orally Once a day As needed Active Ramipril 10 MG 1 capsule Orally Onc e a day for 90 days Active Immunizations Vaccine Route Administration Date Status Comme nts Administered Elsewhere, COVI D-19 Comirnaty Unknown 05/07/2024 Administered Administered Elsewhere, RSV Arexvy Unknown 06/29/2023 A dministered COVID-19 Bivalent Vaccine Pf izer Booster Unknown 05/19/2022 Administered COVID-19 Vaccine Pfizer (Booster) Unknown 05/19/2022 Ad ministered COVID-19 Vaccine Pfizer 1st dose Unknown 08/24/2020 Adm inistered COVID-19 Vaccine Pfizer 2nd dose Unknown 09/26/2020 Adm inistered COVID-19 Vaccine Pfizer 3rd dose Unknown 09/21/2020 Adm inistered COVID-19 Vaccine Pfizer 3rd dose Unknown 07/29/2021 Adm inistered COVID-19, mRNA, LNP-S, PF, 3 0 mcg/0.3 mL dose, basil-sucrose Vaccine Pfizer (Brannon Protein) Unknown 02/10/2022 Administered FLU VACCINE, >65 yrs Unknown 05/07/2024 Administered H1N1 Unknown 08/17/2009 Administered Influenza Fluad (AIIV4) (single-dose syringe) Unknown 05/19/2022 Administered Influenza, FLUAD quadrivalent Unknown 05/19/2022 Admini stered Pneumococcal Conjugate PCV13 (Prevnar 13) Unknown 05/16/2019 Administered Pneumococcal Conjugate PCV20 (Prevnar 20) Unknown 07/13/2023 Administered Pneumococcal Polysaccharide PPV23 (Pneumovax 23) Unknown 09/16/2008 Administered Shingles RZV (Shingrix) Unknown 12/14/2017 Administered Shingles RZV (Shingrix) Unknown 05/19/2018 Administered Shingles ZVL (Zostavax) Unknown 07/31/2009 Administered Social History Tobacco Use: Social History Observation Description Date Details (start date - stop date) Former Smoker 07/31/1963 - 07/31/1978 Tobacco Use/Smoking Question Answer Notes Are you a former smoker When did you start smoking? 07/31/1963 When did you stop smoking? 07/31/1978 Alcohol Screen (Audit C) Question Answer Notes Did you have a drink contain ing alcohol in the past year? Yes How often did you have a dri nk containing alcohol in the past year? 4 or more times a week (4 points) How many drinks did you have on a typical day when you were drinking in the past year? 1 or 2 drinks (0 point) How often did you have 6 or more drinks on one occasion in the past year? 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) Active confirmed Problem 458215102 Paroxysmal atria l fibrillation (I48.0) Active confirmed Problem 40465351 Slow transit constipation (K59.01) Active confirmed Problem 653897267 Encounter for [facility] adult medical examination with abnormal findings (Z00.01) Active confirmed Problem 786379143 Mild intermitten t asthma without complication (J45.20) Active confirmed Problem 683079582 Erectile dysfunc tion, unspecified erectile dysfunction type (N52.9) Active confirmed Problem 798257792 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) Active confirmed Problem 785837876 Peripheral arter ial disease (I73.9) Active confirmed Problem 744619432 First degree AV block (I44.0) Active confirmed Problem 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 (911176199641667) CAD in rampart artery (I25.10) Active confirmed Problem 57273807 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) Active confirmed Problem 110438842 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), 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) Active confirmed Problem 59258006 Lung fibrosis (J84.10) Active confirme d Problem 26107837 Allergic rhiniti s, unspecified seasonality, unspecified trigger (J30.9) Active confirmed Problem Heart failure (30006026) ACC/AHA stage B congestive heart failure (I50.9) Active confirmed Problem 014552 Uncomplicated al cohol use (F10.90) Active confirmed Vital Signs Heart Rate 73 /min 09/09/2024 MarlinTom sanchez krupa 09/09/2024 08:37:07 AM EST > Temperature 96.4 degrees Fahrenheit 09/09/2024 Jeovany handyIngaShelbie 09/09/2024 08:37:07 AM EST > Respiratory Rate 21 /min 09/09/2024 MarlinSoren nthia 09/09/2024 08:37:07 AM EST > Blood pressure diastolic 74 mm Hg 09/09/2024 Ulises rosado Shelbie 09/09/2024 08:37:07 AM EST > Oximetry 96 % 09/09/2024 Marlin Tom gentile 09/09/2024 08:37:07 AM EST > Height 68 inches 09/09/2024 Inga Isaacyenifer krupa 09/09/2024 08:37:07 AM EST > Blood pressure systolic 120 mm Hg 09/09/2024 Jeovany handyShelbie 09/09/2024 08:37:07 AM EST > Weight 217 lbs 09/09/2024 Inga Isaacyenifer gentile 09/09/2024 08:37:07 AM EST > BMI 32.99 kg/m2 09/09/2024 Marlin Tom gentile 09/09/2024 08:37:07 AM EST > Encounters Encounter Location Date Provider Diagnosis [facility] [address] [facility] [address] [place] [address] 09/09/2024 Han Jung CAD in rampart artery I25.10 ; Encounter for general adult medical examination with abnormal findings Z00.01 ; Peripheral arterial disease I73.9 ; Mixed hypercholesterolemia and hypertriglyceridemia E78.2 ; Mild intermittent asthma without complication J45.20 ; Allergic rhinitis, unspecified seasonality, unspecified trigger J30.9 ; First degree AV block I44.0 ; Erectile dysfunction, unspecified erectile dysfunction type N52.9 ; Tobacco abuse, in remission F17.201 ; Lung nodule R91.1 ; Lung fibrosis J84.10 ; Hearing loss H91.90 ; HNP (herniated nucleus pulposus with myelopathy), thoracic M51.04 ; Paroxysmal atrial fibrillation I48.0 ; Slow transit constipation K59.01 ; Other nonthrombocytopenic purpura D69.2 ; Lumbar radiculopathy M54.16 ; Coronary artery disease involving rampart coronary artery of rampart heart with angina pectoris I25.119 and Uncomplicated alcohol use F10.90 [facility] [address] [place] [address] [place] [phone] 06/03/2024 Han Garciao Lumbar radiculopathy M54.16 [facility] [address] [place] [address] 06/10/2024 Han Jung [facility] [address] [place] [address] [place] [phone] 06/19/2024 Han Garciao [facility] [address] [place] [address] [place] [phone] 10/02/2024 Han Jung [facility] [address] [place] [address] [place] [phone] 05/04/2024 Han Garciao Assessments Encounter Date Diagnosis (ICD Code) Assessment Notes Treatment Notes Treatment Clinical Notes 06/03/2024 Lumbar radiculopathy (ICD-10 - M54.16) Acute finding. No evidence of neurological deficit or cord compression. Recommend to proceed with lumbar spine x-ray and left hip as well as a lumbar spine MRI. Future of care will be dictated by the test result. Patient to avoid NSAIDs and he was treated with Depo-Medrol 80 mg IM. Tramadol 50 mg every 4-6 hours prescribed for acute pain. 09/09/2024 Encounter for genera l adult medical examination with abnormal findings (ICD-10 - Z00.01) Patient is scheduled for wellness examination. Recommend to exercise per [place] [employer] guidelines. Eye examination yearly advised. EKG shows normal sinus rhythm. Laboratory data will be drawn today and future care will be dictated by test result. 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 Patient will remain on atorvastatin 10 mg daily, metoprolol tartrate 50 mg twice a day, ramipril 10 mg daily and Eliquis 5 mg twice a day. 09/09/2024 Peripheral arterial disease (ICD-10 - I73.9) Chronic and stable continue to exercise per [employer] [employer] guidelines. Patient will remain on atorvastatin 10 mg daily, metoprolol tartrate 50 mg twice a day, ramipril 10 mg daily and Eliquis 5 mg twice a day. 09/09/2024 Mixed hypercholesterolemia and hypertriglyceridemia (ICD-10 - E78.2) Chronic and stable continue low-cholesterol diet and to remain on atorvastatin 10 mg daily. Laboratory data drawn today and future care will be dictated by test results recommend follow-up in 6 months. 09/09/2024 Mild intermittent as thma without complication (ICD-10 - J45.20) Chronic and stable. Doing well without pain continue surveillance 09/09/2024 Allergic rhinitis, unspecified seasonality, unspecified trigger (ICD-10 - J30.9) Chronic and stable. Patient is doing well without pharmacological treatment continue surveillance 09/09/2024 First degree AV bloc k (ICD-10 - I44.0) Chronic and stable. Continue surveillance 09/09/2024 Erectile dysfunction , unspecified erectile dysfunction type (ICD-10 - N52.9) Chronic and stable continue surveillance. 09/09/2024 Tobacco abuse, in remission (ICD-10 - F17.201) History of tobacco use. Continue surveillance 09/09/2024 Lung nodule (ICD-10 - R91.1) Chronic and stable no further screening required. 09/09/2024 Lung fibrosis (ICD-1 0 - J84.10) Chronic and stable. Patient asymptomatic continue surveillance and longitudinal care with Dr. Bell Pulmonary physician 09/09/2024 Hearing loss (ICD-10 - H91.90) Chronic and stable continue surveillance 09/09/2024 HNP (herniated nucle us pulposus with myelopathy), thoracic (ICD-10 - M51.04) Chronic and stable continue to improve. Recommend to continue with lower extremity strengthening exercises. 09/09/2024 Paroxysmal atrial fibrillation (ICD-10 - I48.0) Chronic and stable rate control metoprolol titrate 50 mg twice a day and to remain on Eliquis 5 mg twice a day 09/09/2024 Slow transit constip ation (ICD-10 - K59.01) Chronic and intermittent. Recommend a trial of Linzesss 145 mg as t he is not responding to MiraLAX and docusate sodium daily 09/09/2024 Other nonthrombocyto penic purpura (ICD-10 - D69.2) Chronic and stable continue surveillance. 09/09/2024 Lumbar radiculopathy (ICD-10 - M54.16) Chronic and stable continue to improve. Recommend to continue with lower extremity strengthening exercises. 09/09/2024 Coronary artery dise ase involving rampart coronary artery of rampart heart with angina pectoris (ICD-10 - I25.119) Chronic and stable continue to exercise per [employer] [employer] guidelines. Patient will remain on atorvastatin 10 mg daily, metoprolol tartrate 50 mg twice a day, ramipril 10 mg daily and Eliquis 5 mg twice a day. 09/09/2024 Uncomplicated alcoho l use (ICD-10 - F10.90) Chronic and stable minimal alcohol consumption continue surveillance 09/09/2024 Other I have reviewed and updated the HPI, Current Medications, PFSH, ROS, and Preventive Medicine Screening done by ancillary staff. Patient was given a personalized prevention plan. I spent (45) minutes on this patient encounter reviewing history, performing the exam and establishing a treatment plan 06/03/2024 Other I spent (25) minutes on this patient encounter reviewing history, performing the exam and establishing a treatment plan Plan Of Treatment Future Test Test Name Order Date Echocardiogram 05/19/2022 US LOWER EXTREMITY ARTERIES BILAT 2021 XR SPINE LUMBAR 2-3 VWS 06/03/2024 XR LEFT HIP UNILAT WO PELVIS, 2-3 VIEWS 06/03/2024 Next Appt Details Provider Name:Han Garcia carlos, 09/15/2025 08:40:00 AM, [address], [place], [address], Insurance Providers Payer Name Payer Address Payer Phone Subscriber Number Group Number Insured Name Patient Relationship to Insured Coverage Start Date Coverage End Date [place]ARE [place] F[place] M[place]. [address] [place] [address] [phone] [id number] ZORAIDA WAYNE Self - patient is the insured [employer] [address] [place] [phone] [id number] ZORAIDA WAYNE Self - patient is the insured Medications Administered Medication Instructions Date of Administration Dosage Notes Triamcinolone Acetonide (Theo alarianne) 40mg 06/03/2024 80 mg Medical (General) History Medical History History ICD Code Hypercholesterolemia with hyperglyceride maegan E78.2 HTN (hypertension) I10 Asthma J45.909 Gallstones Skin Cancer Surgical History Surgery Date(Month/Year) cervical spinal fusion t1 06/2022 cholecystectomy skin cancer removal Gallbladder removed 01/2024 Hospitalization History Reason Date(Month/Year) Gallstones with emergency cholecystectom y 01/2023 cervical spinal surgery 06/2022
--- OUTSIDE RECORDS SUMMARY | 2024-12-05 11:11 | XMS_ITS | Data Portability ---
Author Organization [place] - [facility] [employer], Main Office Address [address] [place] [address] Care Team Providers Care Insulation Board Head Saw Operator Name Role Phone EVY ZELAYA Primary Care Provider EVY ZELAYA Referring Provider Assessment Encounter Date Assessment Date Assessment LastModified by Organization Details LastModified Time 01/24/2023 01/24/2023 Patient presents with back and hip pain. He was told he needed a hip replacement he really does not have much arthritis on the x-rays that I have. He has got good motion very little pain in the groin I think most of pain is from his back. Lumbar spine. He does have a disc at T7 that is not been addressed and has had a fusion at T1. This could be contributing to his back and leg problems. Will try course of therapy and prednisone taper for pain and inflammation. I will see him back in a month. If he does not seem to be progressing I think he needs an MRI scan of his lumbar spine and potentially his thoracic spine as well with the previous history he has given me I have discussed this with him at length risks benefits limitations and alternatives. At this point I see no indication at the hip replacement is indicated. His main pain appears to be in the sacroiliac region on the right as well as a little bit on the trochanter I injected those with 20 mg Kenalog 4 cc 1% lidocaine. [email or web address] Not available 01/26/2023 09:03:51 02/21/2023 02/21/2023 Patient returns trochanteric bursitis right. This is resolved to a large degree with conservative treatment. He is out doing normal activity again and seemingly has very little way of pain. Post long as his work will leave well enough alone if it flares up again we can consider reinjecting him if it is bothersome I will see him back on an as-needed basis otherwise he is dismissed. [email or web address] Not available 02/21/2023 14:42:30 Plan of Treatment Reminders Order Date Submit Date Provider Last Modified By Organization Details Last Modified Time Details Appointments None recorded. Lab None recorded. Referral physical therapist referral - please contact patient to schedule 2022 023 [facility] [place] [facility], [address], [place], [address], 15:40:32 Procedures injection/ aspiration joint/burs a (PROC) - in office procedure, administer ed by provider 2022 023 [email or web address] In-Office Order, Internal Use Only DO Not Attach Compendium DO Not Attach Compendium, Do Not Delete/merge, [id number] 15:40:23 injection/ aspiration joint/burs a (PROC) - in office procedure, administer ed by provider 2022 023 [email or web address] In-Office Order, Internal Use Only DO Not Attach Compendium DO Not Attach Compendium, Do Not Delete/merge, [id number] 15:40:23 Surgeries None recorded. Imaging None recorded. Medication Orders Kenalog 10 mg/mL suspension for injection 2022 023 [place] [address] [facility], [address] [place], [place], [id number], 3 19:54:49 ropivacain e (PF) 5 mg/mL (0.5 %) injection solution 2022 023 [place] [address] [facility]12024, [address], [id number], 3 19:54:49 prednisone 10 mg tablets in a dose pack 2022 023 [place] [address] [facility]85149, [address], [place], [id number], 3 19:54:49 Kenalog 10 mg/mL suspension for injection 2022 023 [email or web address] 58 [facility]35090, [address], [place], [id number], 3 19:54:49 ropivacain e (PF) 5 mg/mL (0.5 %) injection solution 2022 023 [email or web address] 58 [facility]30014, [address], [place], [id number], 3 19:54:49 Patient TargetsNo targets recorded. Patient InstructionsNo instructions recorded. Reason for Referral Physical Therapist Referral for Trochanteric bursitis of right hip please contact patient to schedule Referring Physician: Albaro Balderas, Orthopedic Surgery, Encounter Date: 01/24/2023 Problems Name Problem SNOMED Code Status Onset Date Resolution Date Notes Provider Name and Address Organization Details Recorded Time Pain of right hip joint 6612835665880 02 Active 2022 DEJON Phan [employer] 3 15:23:17 Trochanteri c bursitis of right hip 3051705295246 00 Active 2022 Brenda cannon [email or web address] 3 15:37:23 Pain in right sacroiliac joint 4582385287679 9107 Active 2022 Brenda Pollock Paktor [email or web address] 3 15:37:47 Problem Notes None recorded. Procedures Surgical History Date Name Laterality Status Provider Name and Address Organization Details Recorded Time 3 Ortho - Cortisone Injection completed Albaro Balderas MD [address] [place] [address], [address], [email or web address] 01/26/2023 09:04:15 4 Lumbar Spine Surgery completed Heidy Villarreal CNA [email or web address] 01/24/2023 15:22:37 Imaging Results None recorded. Procedure Notes None recorded. Medical Equipment None Reported. Allergies No known drug allergies Medications Name Sig Start Date Stop Date Status Note LastModified by Organization Details LastModified Time cyclobenzap rine 10 mg tablet TAKE 1 TABLET BY MOUTH EVERY 8 HOURS NEEDED FOR MUSCLE SPASMS FOR UP TO 21 DAYS 01/24 completed Not Available Not Available Not Available prednisone 10 mg tablet TAKE 1 TABLET BY MOUTH THREE TIMES DAILY FOR 3 DAYS THEN TAKE 1 TABLET BY MOUTH TWICE DAILY FOR 2 DAYS THEN TAKE 1 TABLET FOR 1 DAY active Not Available Not Available No t Available atorvastati n 10 mg tablet TAKE 1 TABLET BY MOUTH ONCE DAILY 01/24 completed Not Available Not Available Not Available pravastatin 40 mg tablet active Not Available Not Available Not Available metoprolol tartrate 100 mg tablet 01/24 completed Not Available Not Available Not Available amiodarone 200 mg tablet TAKE 1 TABLET BY MOUTH TWICE DAILY FOR 60 DAYS 01/24 completed Not Available Not Available Not Available metoprolol succinate ER 50 mg tablet,exte nded release 24 hr TAKE 1 TABLET BY MOUTH ONCE DAILY active Not Available Not Available No t Available lisinopril 20 mg tablet 01/24 completed Not Available Not Available Not Available famotidine 40 mg tablet 01/24 completed Not Available Not Available Not Available acetaminoph en 300 mg-codeine 30 mg tablet TAKE 1 TABLET BY MOUTH AT BEDTIME NEEDED 01/24 completed Not Available Not Available Not Available amlodipine 5 mg tablet TAKE 1 TABLET BY MOUTH ONCE DAILY FOR 90 DAYS 01/24 completed Not Available Not Available Not Available ciprofloxac in 500 mg tablet 01/24 completed Not Available Not Available Not Available triamcinolo ne acetonide 0.1 % topical cream APPLY CREAM EXTERNALL Y TWICE DAILY TO THE RASH ON NECK NEEDED FOR 2 WEEKS ON AND 1 WEEK OFF 01/24 completed Not Available Not Available Not Available prednisone 10 mg tablets in a dose pack Take 1 tab by mouth, 3 times a day for 3 daysTake 1 tab by mouth 2 times a day for 2 daysTake 1 tab by mouth once a day for 1 day 2022 active Not Available Not Available Not Avai lable tamsulosin 0.4 mg capsule TAKE 1 CAPSULE BY MOUTH ONCE DAILY FOR 30 DAYS 01/24 completed Not Available Not Available Not Available Kenalog 10 mg/mL suspension for injection Take 20 mg by injection route. 2022 active [facility]: 0003- [phone]- 20 Not Available Not Available Not Available doxycycline monohydrate 100 mg capsule TAKE 1 CAPSULE BY MOUTH TWICE DAILY WITH FOOD FOR 7 DAYS active Not Available Not Available No t Available hydrocodone 7.5 mg-acetamin ophen 325 mg tablet TAKE 1 TABLET BY MOUTH EVERY 6 HOURS NEEDED FOR PAIN active Not Available Not Available No t Available cephalexin 500 mg capsule TAKE 4 CAPSULES BY MOUTH 1 HOUR PRIOR TO SURGERY ON 01/10 completed Not Available Not Available Not Available pantoprazol e 40 mg tablet,walker yed release 01/24 completed Not Available Not Available Not Available montelukast 10 mg tablet TAKE 1 TABLET BY MOUTH ONCE DAILY 01/24 completed Not Available Not Available Not Available pravastatin 20 mg tablet TAKE 1 TABLET BY MOUTH ONCE DAILY 01/24 completed Not Available Not Available Not Available mupirocin 2 % topical ointment APPLY TOPICALLY TO WOUND 2 TO 3 TIMES A DAY FOR 3 TO 4 WEEKS 01/24 completed Not Available Not Available Not Available methylpredn isolone 4 mg tablets in a dose pack TAKE BY MOUTH DIRECTED ON INSIDE OF PACKAGE 01/24 completed Not Available Not Available Not Available fluticasone propionate 50 mcg/actuati on nasal spray,suspe nsion 01/24 completed Not Available Not Available Not Available ipratropium bromide 21 mcg (0.03 %) nasal spray 01/24 completed Not Available Not Available Not Available loratadine 10 mg tablet TAKE 1 TABLET BY MOUTH ONCE DAILY 01/24 completed Not Available Not Available Not Available ramipril 10 mg capsule TAKE 1 CAPSULE BY MOUTH ONCE DAILY active Not Available Not Available No t Available ropivacaine (PF) 5 mg/mL (0.5 %) injection solution Take 20 mg by injection route. 2022 active [facility] 01485 -064- 01 Not Available Not Available Not Available Eliquis 5 mg tablet 01/24 completed Not Available Not Available Not Available Breo Ellipta 200 mcg-25 mcg/dose powder for inhalation INHALE 1 PUFF BY MOUTH ONCE DAILY 01/24 completed Not Available Not Available Not Available BinaxNOW COVID-19 Ag Self Test kit Use as Directed on the Package 01/24 completed Not Available Not Available Not Available Vitals Date Recorded Body height Body mass index (BMI) Body weight Provider Name and Address Organization Details Last Updated DateTime 01/24/2023 175.26 cm 29.5 kg/m2 42557.47 g Heidy Villarreal CNA [employer] 01/24/2023 15:13:37 Date Recorded Body height Body mass index (BMI) Body weight Provider Name and Address Organization Details Last Updated DateTime 02/21/2023 175.26 cm 29.5 kg/m2 93059.47 g WYATT Silver[employer] 02/21/2023 14:16:13 Social History Question Answer Notes LastModified by Organizat ion Details LastModified Time Tobacco Smoking Status Never Smoker Heidy Villarreal CNA null, [employer] 01/24/2023 15:22:04 What Is Your Level Of Alcohol Consumption? Moderate Information not available 01/24/2023 Sex: Unknown Functional Status None recorded. Mental Status None recorded. Family History Relationship Description Onset Age of this Age Resolved Age Notes LastModified by Organization Details LastModified Time Mother Hypertensive disorder [email or web address] Not available 2022 15:21:34 Brother Hypertensive disorder multip les Not available 01/24/2023 15:21:34 Medical History Condition Response HYPERTENSION Y Past Encounters Encounter ID Performer Location Encounter Start Date Encounter Closed Date Diagnosis/Indication Diagnosis SNOMED-CT Code Diagnosis ICD10 Code Diagnosis Note [id number] Albaro Balderas MD [facility] [place] [address] [place] [address] 01/24/2023 14:56:41 01/24/2023 16:16:05 Pain of right hip joint 4675230785 19517 M25.551 Trochanter ic bursitis of right hip 8718810960 24371 M70.61 Pain in ri ght sacroiliac joint 7921028227 2432268 M53.3 [id number] Albaro Balderas MD [facility] [address] [place] [address] 02/21/2023 14:13:45 02/21/2023 16:13:06 Trochanteric bursitis of right hip 8247438688 41446 M70.61 Pain of ri ght hip joint 3592346797 44954 M25.551 Pain in ri ght sacroiliac joint 1179633370 7618311 M53.3 Health Concerns Section Related Observation LastModified by Organization Detai ls LastModified Time None Recorded Concern Status LastModified by Organization Details LastModified Time None Recorded Advance Directives Directive None Recorded Payers Encounter Date Sequence Insurance Name Policy Number Policy Guerrero Covered Member ID Guerrero Member ID Guarantor Name 01/24/2023 1 [place] Rafael Santiago [id number] 6 Rafael Santiago 01/24/2023 2 [employer] (MEDICARE SUPPLEMENT) Rafael Santiago [id number] Rafael Santiago 02/21/2023 1 [place] Rafael Santiago [id number] Rafael Santiago 02/21/2023 2 [employer] (MEDICARE SUPPLEMENT) Rafael Santiago [id number] Rafael Santiago Notes Date Note Type Note Provider Name and Address Organization Details Recorded Time 01/24/2023 text/html Mr. Jack hernandez ts with back and hip pain. He was told that he needed a hip replacement [place]. This is on his right hip. He has had previous treatment to his lumbar spine. And has a footdrop when he walks. He walks with an antalgic gait the pain is moderately severe. Apparently had surgery on his spine at T1 with that cause a footdrop on his right side. He apparently also has a disc problem at T7 which is somewhat unusual. Albaro Balderas MD [address], [place], [address], [employer] 01/26/2023 09:04:20 02/21/2023 text/html Patient returns hip pain right. He has trochanteric pain which has resolved to a large degree with conservative treatment. Of note is the fact he has had gallbladder surgery in between the time I saw him last and today. Albaro Balderas MD [address], [address], [place], [address], [employer] 02/21/2023 14:42:47
--- OUTSIDE RECORDS SUMMARY | 2024-12-05 11:11 | XMS_ITS ---
Author Organization [facility], [facility] Address [address] [place] [address] Care Team Providers Care Ticket Collector Name Role Phone Han Jung MD Primary Care Provider [phone] REASON FOR VISIT CALL BACK Encounters Encounter Location Date Provider Diagnosis [facility] [address] [place] [address] 06/19/2024 Han Jung Plan Of Treatment Next Appt Details Provider Name:Han gonzalez, 09/15/2025 08:40:00 AM, [address], [address], [place], [address], Progress Notes * ZORAIDA WAYNEDOB:1945 (78 yo M)Acc No.[id number]:06/19/2024 Patient: ZORAIDA PARDO :1945 A ge:78 Y S ex:Male Address:[address] [facility] [place] [address] * true * Date: Generated for Printi aubrey/Fafabg/eTransmitting on: 0 12/05/2024 12:11 PM EDT
--- OUTSIDE RECORDS SUMMARY | 2024-12-05 11:12 | XMS_ITS | Data Portability ---
Author Organization [place] [facility] Address [address] [place] [address] Care Team Providers Care Printing Plate Maker Name Role Phone LESLI LOZA Primary Care Provider [phone] LESLI LOZA Referring Provider [phone] Assessment Encounter Date Assessment Date Assessment LastModified by Organization Details LastModified Time 11/17/2022 11/17/2022 Patient leaving to [place]; will follow up with ent there; he will return next fall [email or web address] Not available 11/17/2022 12:07:53 Plan of Treatment Reminders Order Date Submit Date Provider Last Modified By Organization Details Last Modified Time Details Appointments None recorded. Lab None recorded. Referral None recorded. Procedures None recorded. Surgeries None recorded. Imaging None recorded. Medication Orders ipratropium bromide 21 mcg (0.03 %) nasal spray [address] [facility] [place], [address], 3 11:54:38 Patient TargetsNo targets recorded. Patient InstructionsNo instructions recorded. Reason for Referral None Reported. Procedures Surgical History Date Name Laterality Status Provider Name and Address Organization Details Recorded Time 3 Nas[place] [address], [place], [address], [facility] 11/17/2022 12:03:00 3 Nasal [place] [address], [place], [address], [facility] 08/18/2022 11:50:43 Imaging Results None recorded. Procedure Notes None recorded. Medical Equipment None Reported. Medications Name Sig Start Date Stop Date Status Note LastModified by Organization Details LastModified Time cyclobenzapr ine 10 mg tablet TAKE 1 TABLET BY MOUTH EVERY 8 HOURS NEEDED FOR MUSCLE SPASMS FOR UP TO 21 DAYS active Not Available Not Available No t Available atorvastatin 10 mg tablet TAKE 1 TABLET BY MOUTH ONCE DAILY active Not Available Not Available No t Available azithromycin 250 mg tablet TAKE 2 TABLETS BY MOUTH ON DAY 1, AND THEN TAKE 1 TABLET BY MOUTH ONCE A DAY ON DAY 2 THROUGH DAY 5 active Not Available Not Available No t Available pravastatin 40 mg tablet active Not Available Not Available Not Available metoprolol tartrate 100 mg tablet active Not Available Not Available No t Available amiodarone 200 mg tablet TAKE 1 TABLET BY MOUTH TWICE DAILY FOR 60 DAYS active Not Available Not Available No t Available metoprolol succinate ER 50 mg tablet,exten ded release 24 hr TAKE 1 TABLET BY MOUTH ONCE DAILY active Not Available Not Available No t Available lisinopril 20 mg tablet active Not Available Not Available Not Available amlodipine 5 mg tablet active Not Available Not Available No t Available ciprofloxaci n 500 mg tablet active Not Available Not Available Not Available triamcinolon e acetonide 0.1 % topical cream APPLY CREAM EXTERNALLY TWICE DAILY TO THE RASH ON NECK NEEDED FOR 2 WEEKS ON AND 1 WEEK OFF active Not Available Not Available No t Available tamsulosin 0.4 mg capsule TAKE 1 CAPSULE BY MOUTH ONCE DAILY FOR 30 DAYS active Not Available Not Available No t Available pantoprazole 40 mg tablet,delay ed release active Not Available Not Available N ot Available montelukast 10 mg tablet TAKE 1 TABLET BY MOUTH ONCE DAILY active Not Available Not Available No t Available pravastatin 20 mg tablet TAKE 1 TABLET BY MOUTH ONCE DAILY active Not Available Not Available No t Available prednisone 5 mg tablets in a dose pack FOLLOW PACKAGE DIRECTIONS active Not Available Not Available N ot Available methylpredni solone 4 mg tablets in a dose pack TAKE BY MOUTH DIRECTED ON INSIDE OF PACKAGE active Not Available Not Available No t Available albuterol sulfate HFA 90 mcg/actuatio n aerosol inhaler INHALE 2 PUFFS BY MOUTH EVERY 6 HOURS NEEDED active Not Available Not Available No t Available fluticasone propionate 50 mcg/actuatio n nasal spray,suspen anahi active Not Available Not Available Not Available doxycycline hyclate 100 mg tablet TAKE 1 TABLET BY MOUTH TWICE DAILY FOR 10 DAYS active Not Available Not Available No t Available ipratropium bromide 21 mcg (0.03 %) nasal spray [place] 2 sprays twice a day by intranasal route for 60 days. active Not Available Not Available No t Available loratadine 10 mg tablet TAKE 1 TABLET BY MOUTH ONCE DAILY active Not Available Not Available No t Available ramipril 10 mg capsule TAKE 1 CAPSULE BY MOUTH ONCE DAILY active Not Available Not Available No t Available Eliquis 5 mg tablet active Not Available Not Available Not Available Breo Ellipta 100 mcg-25 mcg/dose powder for inhalation INHALE 1 PUFF BY MOUTH EVERY DAY active Not Available Not Available No t Available Breo Ellipta 200 mcg-25 mcg/dose powder for inhalation INHALE 1 PUFF BY MOUTH ONCE DAILY active Not Available Not Available No t Available BinaxNOW COVID-19 Ag Self Test kit Use as Directed on the Package active Not Available Not Available Not Available Vitals None Recorded Social History None recorded. Functional Status None recorded. Mental Status None recorded. Family History Nothing Reported. Medical History No medical history recorded. Past Encounters Encounter ID Performer Location Encounter Start Date Encounter Closed Date Diagnosis/Indication Diagnosis SNOMED-CT Code Diagnosis ICD10 Code Diagnosis Note [id number] Law fernandez [place] [facility] [place] [address] [place] [address] 08/18/2022 10:47:57 08/18/2022 12:01:21 Dysphagia 25242164 R13.10 Continue care with speech and swallow therapy Dysphonia 16223227 R49.9 Due to right vocal cord paralysisi mproving Vocal cord paralysis 302 486350 J38.01 Will follow clinically Patient will follow up in 3 mos for repeat endoscopy Chronic rhinitis 4957196 6 J31.0 Continue FlonaseAdd ed Atrovent [id number] Law fernandez MD [place] [facility] [place] [address] [place] [address] 11/17/2022 11:09:20 11/17/2022 12:09:46 Dysphagia 07129499 R13.10 Improved Dysphonia 23659429 R49.9 Improved Vocal cord paralysis 302 611348 J38.01 Will follow clinically Patient will follow up in 3-4 mos for repeat endoscopy Chronic rhinitis 8351381 6 J31.0 Continue Flonase and AtroventAl so Discussed option for ablation of posterior nasal nerve to improve drainage ( [facility]) Benign rene plasm of nose, 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 (70582) [facility] Health Concerns Section Related Observation LastModified by Organization Detai ls LastModified Time None Recorded Concern Status LastModified by Organization Details LastModified Time None Recorded Advance Directives Directive None Recorded Payers Insurance Date Sequence Insurance Name Policy Number Policy Guerrero Covered Member ID Guerrero Member ID Guarantor Name 11/15/2022 1 [place] Rafael Santiago [id number] Rafael Broom 08/18/2022 2 [employer] [id number] Rafael [email or web address] 11/15/2022 2 [employer] (MEDICARE SUPPLEMENT) Rafael [employer] [id number] [employer] 09/09/2022 2 [employer] (MEDICARE SUPPLEMENT) Rafael [email or web address] [id number] Rafael [email or web address] Notes Date Note Type Note Provider Name and Address Organization Details Recorded Time 08/18/2022 text/html Patient with Voc al cord paralysis s/p [facility] hoarseness and dysphagia, both improved per patient; he is currently being followed by speech therapyComplaints of phlegm, and post nasal drip, no facial pain, pressure, headaches, no sinus [place] [address], [place], [address], [facility] 08/18/2022 11:55:33 11/17/2022 text/html Patient with Voc al cord paralysis s/p [facility] has hoarseness and dysphagia, both improved per patient;Completed speech therapyVoice has significantly improvedNo episodes of choking; pneumonia, cough Still has phlegm, [place] [address], [place], [address], [facility] 11/17/2022 12:08:22
--- OUTSIDE RECORDS SUMMARY | 2024-12-05 11:12 | XMS_ITS ---
Author Organization [facility], [facility] Address [address] [place] [address] Care Team Providers Care Brain Surgeon Name Role Phone Han Jung MD Primary Care Provider Encounters Encounter Location Date Provider Diagnosis [facility] [address] [place] [address] 10/02/2024 Han Jung Plan Of Treatment Next Appt Details Provider Name:Han gonzalez, 09/15/2025 08:40:00 AM, [address], [address], [place], [address], Progress Notes * ZORAIDA WAYNEDOB:1945 (79 yo M)Acc No.[id number]:10/02/2024 Patient: ZORAIDA PARDO :1945 A ge:79 Y S ex:Male Address:[address] [place] [address] * true * Date: Generated for Printi ng/Fafabg/eTransmitting on: 0 12/05/2024 12:11 PM EDT
--- OUTSIDE RECORDS SUMMARY | 2024-12-05 11:12 | XMS_ITS | Data Portability ---
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 He had a bout of AFib intraoperatively during his neurosurgical procedure. He was started on Eliquis for stroke prevention and has been doing well with it so far. On last visit we completed a 21 day cardiac telemetry which we will review with him during this visit. He just started playing golf again today and has been a bit sore. There is intermittent episode of sharp/stabbing chest pain that take his breath away. This is typically exacerbated by eating and resolves with the use of tums. 06/12/23 cholecystectomy during the summer, was off anticoagulation for several months, on aspirin, apple watch shows a pretty high daily burden of atrial fibrillation up to 12%. He has no complaints of chest pain dyspnea palpitations syncope or dizziness. EKG today shows sinus rhythm frequent PACs. He needs to go back on Eliquis 5 mg twice a day, unacceptably high CVA risk for aspirin. Otherwise continue regimen, schedule echo on follow-up. [email or web address] Not available 06/16/2023 09:10:34 11/27/2023 11/27/2023 EKG today normal sinus rhythm. I had a chance to review his Apple watch tracings, even though there is supposedly an AFib burden of 19%, most of the tracings actually shows sinus with frequent PACs and not really atrial fibrillation. He is on chronic anticoagulation, he is doing well with that with no bleeding or bruising. Continue same regimen, return for follow-up in 6 months. [email or web address] Not available 11/28/2023 13:40:03 07/18/2024 07/18/2024 in sinus rhythm, occasional PACs. Anticoagulation. No bleeding or bruising, good exercise capacity A total of 31 minutes were spent pre-charting, obtaining and reviewing history, completing the exam, counseling, and coordinating care for the patient during the encounter, ordering tests, medications, independently interpreting tests and communicating to the family and completing the charting after the visit today. This time is not inclusive of any procedures/service s that are separately billable and performed during this visit. [email or web address] Not available 07/19/2024 13:18:44 08/14/2024 08/14/2024 78-year-old male presents to the office for concerns of chest pain. First occurred approximately a week ago. Describes pain is constant. Pain is located in his back by left scapula and he states when he lays down it radiates to his left chest. He denies any aggravating or alleviating factors. Pain is reproducible. There is no other associated symptoms. Twelve lead EKG reveals sinus frequent PACs, this is his baseline. No evidence of ischemia. A total of 31 minutes were spent pre-charting, obtaining and reviewing history, completing the exam, counseling, and coordinating care for the patient during the encounter, ordering tests, medications, independently interpreting tests and communicating to the family and completing the charting after the visit today. This time is not inclusive of any procedures/service s that are separately billable and performed during this visit. [email or web address] Not available 08/14/2024 16:55:50 11/08/2024 11/08/2024 78-year-old male presents to the office for concerns of chest pain. First occurred approximately a week ago. Describes pain is constant. Pain is located in his back by left scapula and he states when he lays down it radiates to his left chest. He denies any aggravating or alleviating factors. Pain is reproducible. There is no other associated symptoms. Twelve lead EKG reveals sinus frequent PACs, this is his baseline. No evidence of ischemia. 11/08/24 Patient presents with no evidence of angina or heart failure, in atrial fibrillation today with good rate control, initial blood pressure elevated, but repeat was 140/70. His blood pressure is normally controlled. He is on Eliquis. Continue Eliquis, metoprolol, ramipril, and atorvastatin. Recent labs noted, good results in general including great lipid profile as of August of this year. He will go up [place] for the summer and follow-up will be in May. A total of 31 minutes were spent pre-charting, obtaining and reviewing history, completing the exam, counseling, and coordinating care for the patient during the encounter, ordering tests, medications, independently interpreting tests and communicating to the family and completing the charting after the visit today. This time is not inclusive of any procedures/service s that are separately billable and performed during this visit. [email or web address] Not available 11/09/2024 04:21:50 Plan of Treatment Reminders Order Date Submit Date Provider Last Modified By Organization Details Last Modified Time Details Appointments Establi shed Patient 2024 11:45A M Anastasiya Morris MD Not available Not available Not available Lab None recorde d. Referral None recorde d. Procedures treadmi ll nuclear stress test (PROC) 2024 025 [email or web address] Not available 08/20/2024 08:16:30 trans-t horacic echocar diogram (TTE) (PROC) 2024 025 [email or web address] Not available 09/20/2024 15:16:14 Surgeries None recorde d. Imaging electro cardiog yary 2024 025 [email or web address] In-House Test, For Internal Use Only, Do Not Delete/merge, [id number] 11/11/2024 08:13:31 electro cardiog yary 2024 025 [email or web address] In-House Test, For Internal Use Only, Do Not Delete/merge, [id number] 08/15/2024 08:14:01 electro cardiog yary 2023 024 [email or web address] In-House Test, For Internal Use Only, Do Not Delete/merge, [id number] 07/19/2024 13:18:35 electro cardiog yary 2023 024 [email or web address] In-House Test, For Internal Use Only, Do Not Delete/merge, [id number] 11/27/2023 13:49:44 electro cardiog yary 2022 023 [email or web address] In-House Test, For Internal Use Only, Do Not Delete/merge, [id number] 06/12/2023 10:16:45 Medication Orders Eliquis 5 mg tablet 2023 024 [id number], [address], [place], [id number], 11/27/2023 13:27:12 Patient TargetsNo targets recorded. Patient InstructionsNo instructions recorded. Reason for Referral None Reported. Results Created Date Observation Date Name Description Value Unit Range Abnormal Flag Note LastModifiedBy Organization Detail LastModifiedTime 06/12/2006/12/2023 elect rocar diogr am No observ ation record ed. [email or web address] In-House Test For Internal Use Only, Do Not Delete/merge, [id number] 06/12/2023 12:30:41 06/12/20 elect rocar diogr am No observ ation record ed. [email or web address] Not Available 2022 16:26:07 11/27/19 24 11/27/2023 elect rocar diogr am No observ ation record ed. [email or web address] In-House Test For Internal Use Only, Do Not Delete/merge, [id number] 11/27/2023 14:38:32 07/18/20 24 07/18/2024 elect rocar diogr am No observ ation record ed. [email or web address] In-House Test For Internal Use Only, Do Not Delete/merge, [id number] 07/18/2024 13:25:39 07/19/20 24 07/18/2024 elect rocar diogr am No observ ation record ed. [email or web address] Not Available 2023 15:38:55 08/14/19 25 08/15/2024 elect nicole acosta am No observ ation record ed. [email or web address] In-House Test For Internal Use Only, Do Not Delete/merge, [id number] 08/15/2024 08:14:02 08/19/19 25 08/14/2024 elect nicole acosta am No observ ation record ed. [email or web address] Not Available 2024 15:00:07 08/21/19 25 08/20/2024 tread mill nucle ar stres s test (PROC ) No observ ation record ed. [email or web address] [facility] [address], [place], [address], 08/21/2024 12:00:34 10/01/19 25 09/20/2024 trans -thor acic echoc ardio gram (TTE) (PROC ) No observ ation record ed. [email or web address] Not Available 10/2024 11:08:30 11/09/19 25 11/11/2024 elect nicole acosta am No observ ation record ed. [email or web address] In-House Test For Internal Use Only, Do Not Delete/merge, [id number] 11/11/2024 09:20:16 Result Notes None recorded. Problems Name Problem SNOMED Code Status Onset Date Resolution Date Notes Provider Name and Address Organization Details Recorded Time Essential hypertension 45756601 Active 2022 ANASTASIYA MORRIS MD [address], [place], [address], [facility] - [facility] 3 14:08:40 Hyperlipidemia 26813032 Active 2022 ANASTASIYA MORRIS MD [address] [facility] [facility] [address], [place], [address], [facility] - [facility] 3 14:08:40 Peripheral arterial occlusive disease 490819284 Active 2022 ANASTASIYA MORRIS MD [address] [facility] [facility] [address], [place], [address], [facility] - [facility] 3 14:08:40 Chest pain 85926965 Active 2022 ANASTASIYA MORRIS MD [address] [facility], [place], [address], [facility] - [facility] 3 14:08:41 Paroxysmal atrial fibrillation 279532507 Active 2022 ANASTASIYA MORRIS MD [address] [facility], [place], [address], [facility] - [facility] 3 14:24:47 Coronary atherosclerosi s 639933082 Active 2022 ANASTASIYA MORRIS MD [address] [facility], [place], [address], [facility] - [facility] 3 09:07:09 Non-cardiac chest pain 925586603 Active 2022 DELMER BAUER NP [address], [place], [address], [facility] - [facility] 3 15:59:37 Atrial fibrillation 87467637 Active 2022 ANASTASIYA MORRIS MD [address] [facility], [place], [address], [facility] - [facility] 3 09:52:27 Atypical chest pain 433306641 Active 2024 JORGE ALBERTO WINSTON [address], [place], [address], [facility] - [facility] 5 16:54:38 Problem Notes None recorded. Procedures Surgical History None recorded. Imaging Results Imaging Date Name Status LastModified by Organization Details LastModified Time 06/12/2023 electrocardiogram completed [email or web address] In-Hous e Test For Internal Use Only, Do Not Delete/merge, [id number] 06/12/2023 12:30:41 06/12/2023 electrocardiogram completed [email or web address] Informa tion not available 06/12/2023 16:26:07 11/27/2023 electrocardiogram completed [email or web address] In-Hous e Test For Internal Use Only, Do Not Delete/merge, [id number] 11/27/2023 14:38:32 07/18/2024 electrocardiogram completed [email or web address] In-[place] se Test For Internal Use Only, Do Not Delete/merge, [id number] 07/18/2024 13:25:39 07/18/2024 electrocardiogram completed Informa tion not available 07/21/2024 15:38:55 08/15/2024 electrocardiogram completed [email or web address] In-Hous e Test For Internal Use Only, Do Not Delete/merge, [id number] 08/15/2024 08:14:02 08/20/2024 treadmill nuclear stress test (PROC) completed [email or web address] [facility] [address], [place], [address], 08/21/2024 12:00:34 08/14/2024 electrocardiogram completed Informa tion not available 08/21/2024 15:00:07 09/20/2024 trans-thoracic echocardiogram (TTE) (PROC) completed [email or web address] Information not available 10/01/2024 11:08:30 11/11/2024 electrocardiogram completed [email or web address] In-Hous e Test For Internal Use Only, Do Not Delete/merge, [id number] 11/11/2024 09:20:16 Procedure Notes None recorded. Medical Equipment None Reported. Allergies No known drug allergies Medications Name Sig Start Date Stop Date Status Note LastModified by Organization Details LastModified Time cyclobenzap rine 10 mg tablet TAKE 1 TABLET BY MOUTH EVERY 8 HOURS NEEDED FOR MUSCLE SPASMS FOR UP TO 21 DAYS 06/12 completed Not Available Not Available Not Available prednisone 10 mg tablet TAKE 1 TABLET BY MOUTH THREE TIMES DAILY FOR 3 DAYS THEN TAKE 1 TABLET BY MOUTH TWICE DAILY FOR 2 DAYS THEN TAKE 1 TABLET FOR 1 DAY 06/12 completed Not Available Not Available Not Available atorvastati n 10 mg tablet TAKE 1 TABLET BY MOUTH ONCE DAILY FOR 90 DAYS active Not Available Not Available No t Available azithromyci n 250 mg tablet TAKE 2 TABLETS BY MOUTH DAILY 12/19 /2024 completed Not Available Not Available Not Available pravastatin 40 mg tablet Take 1 tablet every day by oral route. 08/16 completed Not Available Not Available Not Available metoprolol tartrate 100 mg tablet Take 1 tablet twice a day by oral route. 11/23 completed Not Available Not Available Not Available amiodarone 200 mg tablet TAKE 1 TABLET BY MOUTH DAILY 07/18 completed Not Available Not Available Not Available metoprolol succinate ER 50 mg tablet,exte nded release 24 hr TAKE 1 TABLET BY MOUTH ONCE DAILY 11/26 completed Not Available Not Available Not Available lisinopril 20 mg tablet qd 09/27 completed Not Available Not Available Not Available famotidine 40 mg tablet TAKE 1 TABLET BY MOUTH EVERY DAY AT BEDTIME 11/26 completed Not Available Not Available Not Available isosorbide mononitrate ER 30 mg tablet,exte nded release 24 hr Take 1 tablet by mouth once daily 08/16 completed Not Available Not Available Not Available acetaminoph en 300 mg-codeine 30 mg tablet TAKE 1 TABLET BY MOUTH AT BEDTIME NEEDED 06/12 completed Not Available Not Available Not Available amlodipine 5 mg tablet Take 1 tablet every day by oral route for 90 days. 11/23 completed Not Available Not Available Not Available ciprofloxac in 500 mg tablet 09/27 completed Not Available Not Available Not Available aspirin 81 mg tablet,walker yed release Take 1 tablet every day by oral route. 11/23 completed Not Available Not Available Not Available tramadol 50 mg tablet TAKE 1 TABLET BY MOUTH EVERY 4 HOURS NEEDED FOR 3 DAYS 07/18 completed Not Available Not Available Not Available triamcinolo ne acetonide 0.1 % topical cream APPLY CREAM EXTERNALL Y TWICE DAILY TO THE RASH ON NECK NEEDED FOR 2 WEEKS ON AND 1 WEEK OFF 06/12 completed Not Available Not Available Not Available tamsulosin 0.4 mg capsule TAKE 1 CAPSULE BY MOUTH ONCE DAILY FOR 30 DAYS 06/12 completed Not Available Not Available Not Available doxycycline monohydrate 100 mg capsule TAKE 1 CAPSULE BY MOUTH TWICE DAILY WITH FOOD FOR 7 DAYS 06/12 completed Not Available Not Available Not Available hydrocodone 7.5 mg-acetamin ophen 325 mg tablet TAKE 1 TABLET BY MOUTH EVERY 6 HOURS NEEDED FOR PAIN 06/12 completed Not Available Not Available Not Available cephalexin 500 mg capsule TAKE 4 CAPSULES BY MOUTH 1 HOUR PRIOR TO SURGERY ON 01/10 completed Not Available Not Available Not Available pantoprazol e 40 mg tablet,walker yed release qd 11/23 completed Not Available Not Available Not Available metoprolol tartrate 50 mg tablet TAKE 1 TABLET BY MOUTH ONCE DAILY WITH FOOD active Not Available Not Available No t Available montelukast 10 mg tablet TAKE 1 TABLET BY MOUTH ONCE DAILY 11/23 completed Not Available Not Available Not Available acetaminoph en 300 mg-codeine 60 mg tablet TAKE 1/2 TO 1 (ONE-HALF TO ONE) TABLET BY MOUTH EVERY 4 TO 6 HOURS NEEDED FOR 5 DAYS 07/18 completed Not Available Not Available Not Available pravastatin 20 mg tablet TAKE 1 TABLET BY MOUTH ONCE DAILY 06/21 completed Not Available Not Available Not Available mupirocin 2 % topical ointment APPLY TOPICALLY TO WOUND 2 TO 3 TIMES A DAY FOR 3 TO 4 WEEKS 06/12 completed Not Available Not Available Not Available prednisone 5 mg tablets in a dose pack FOLLOW PACKAGE DIRECTION S 06/03 completed Not Available Not Available Not Available methylpredn isolone 4 mg tablets in a dose pack TAKE BY MOUTH DIRECTED ON INSIDE OF PACKAGE 08/16 completed Not Available Not Available Not Available albuterol sulfate HFA 90 mcg/actuati on aerosol inhaler INHALE 2 PUFFS BY MOUTH EVERY 6 HOURS NEEDED 09/27 completed Not Available Not Available Not Available ipratropium bromide 42 mcg (0.06 %) nasal spray USE 2 SPRAYS IN EACH NOSTRIL THREE TIMES DAILY 08/16 completed Not Available Not Available Not Available fluticasone propionate 50 mcg/actuati on nasal spray,suspe nsion qd 11/23 completed Not Available Not Available Not Available doxycycline hyclate 100 mg tablet TAKE 1 TABLET BY MOUTH TWICE DAILY FOR 10 DAYS 06/03 completed Not Available Not Available Not Available docusate sodium 100 mg tablet Take 1 tablet every day by oral route. 11/26 completed Not Available Not Available Not Available ipratropium bromide 21 mcg (0.03 %) nasal spray USE 2 SPRAY(S) IN EACH NOSTRIL TWICE DAILY FOR 30 DAYS 11/26 completed Not Available Not Available Not Available ramipril 5 mg capsule TAKE 3 CAPSULES BY MOUTH DAILY 07/18 completed Not Available Not Available Not Available loratadine 10 mg tablet TAKE 1 TABLET BY MOUTH ONCE DAILY 11/23 completed Not Available Not Available Not Available ramipril 10 mg capsule TAKE 1 CAPSULE BY MOUTH ONCE DAILY FOR 90 DAYS active Not Available Not Available No t Available amoxicillin 875 mg-potassiu m clavulanate 125 mg tablet TAKE 1 TABLET BY MOUTH EVERY 12 HOURS 07/18 completed Not Available Not Available Not Available Metamucil as needed 07/18 completed Not Available Not Available Not Available Senna Lax qd 11/23 completed Not Available Not Available Not Available Linzess 145 mcg capsule TAKE 1 CAPSULE BY MOUTH 30 MINUTES BEFORE THE FIRST MEAL OF THE DAY ONCE DAILY ON AN EMPTY STOMACH FOR 30 DAYS 07/18 completed Not Available Not Available Not Available Eliquis 5 mg tablet TAKE 1 TABLET BY MOUTH TWICE DAILY active Not Available Not Available No t Available Breo Ellipta 100 mcg-25 mcg/dose powder for inhalation INHALE 1 PUFF BY MOUTH EVERY DAY 06/03 completed Not Available Not Available Not Available Breo Ellipta 200 mcg-25 mcg/dose powder for inhalation INHALE 1 PUFF BY MOUTH ONCE DAILY 08/16 completed Not Available Not Available Not Available Linzess 72 mcg capsule 07/18 completed Not Available Not Available Not Available BinaxNOW COVID-19 Ag Self Test kit Use as Directed on the Package 06/03 completed Not Available Not Available Not Available Vitals Date Recorded Body height Body mass index (BMI) Body weight Heart rate Oxygen saturation Oxygen saturation in Arterial blood by Pulse oximetry Systolic blood pressure Diastolic blood pressure Provider Name and Address Organization Details Last Updated DateTime 3 165.1 cm 35.1 kg/m2 23108.9 9 g 63 /min 98 % 98 % 140 mm[Hg] 70 mm[Hg] ANASTASIYA MORRIS MD [address], [place], [address] , [place] - [facility] 3 09:51:55 Date Recorded Body height Provider Name an d Address Organization Details Last Updated DateTime 11/27/2023 165.1 cm Kristy Chairez [place] - [facility] 11/27/2023 12:56:29 Date Recorded Body mass index (BMI) Body weight Oxygen saturation Oxygen saturation in Arterial blood by Pulse oximetry Heart rate Heart rate Systolic blood pressure Diastolic blood pressure Provider Name and Address Organization Details Last Updated DateTime 4 35.1 kg/m2 35350.9 9 g 95 % 95 % 73 /min 73 /min 115 mm[Hg] 66 mm[Hg] JORGE ALBERTO WINSTON [address] [facility] [facility],[address], [place], [address] [place], [place] - [facility] 4 13:00:55 Date Recorded Body height Body mass index (BMI) Body weight Oxygen saturation Oxygen saturation in Arterial blood by Pulse oximetry Heart rate Heart rate Systolic blood pressure Diastolic blood pressure Provider Name and Address Organization Details Last Updated DateTime 4 165.1 cm 35.2 kg/m2 72733.1 5 g 97 % 97 % 43 /min 43 /min 138 mm[Hg] 85 mm[Hg] ANASTASIYA MORRIS MD [address] [facility] [facility],[address], [place], [address] [place], [place] - [facility] 4 11:57:35 Date Recorded Body height Body mass index (BMI) Body weight Oxygen saturation Oxygen saturation in Arterial blood by Pulse oximetry Systolic blood pressure Diastolic blood pressure Provider Name and Address Organization Details Last Updated DateTime 5 165.1 cm 35.2 kg/m2 62684.1 5 g 98 % 98 % 132 mm[Hg] 86 mm[Hg] Senait Olivares [place] - [facility] 5 16:47:09 Date Recorded Body height Body mass index (BMI) Body weight Oxygen saturation Oxygen saturation in Arterial blood by Pulse oximetry Heart rate Heart rate Systolic blood pressure Diastolic blood pressure Provider Name and Address Organization Details Last Updated DateTime 5 165.1 cm 34.9 kg/m2 97316.4 g 97 % 97 % 65 /min 65 /min 160 mm[Hg] 77 mm[Hg] ANASTASIYA MORRIS MD [address] [facility] [facility],[address], [place], [address] [place], [place] - [facility] 12:07:06 Social History Question Answer Notes LastModified by Organizat ion Details LastModified Time Tobacco Smoking Status Former Smoker quit: 1978 [id number] yrs ANASTASIYA MORRIS MD [address] [facility] [facility] [address], [place], [address], [facility] - [facility] 06/03/2022 12:40:39 What Is Your Level Of Alcohol Consumption? Moderate Couple Beer And [employer] A Daily Information not available 06/03/2022 What Is Your Level Of Caffeine Consumption? Moderate 3 Cups A Day Information not available 06/03/2022 At What Age Did You Start Smoking Tobacco? 19 Information not available 06/03/2022 Do You Use Any Illicit Or Recreational Drugs? No Information not available 06/03/2022 How Many Years Have You Smoked Tobacco? 13 Information not available 06/03/2022 Do You Or Have You Ever Used Any Other Forms Of Tobacco Or Nicotine? No Information not available 06/03/2022 Sex: Unknown Functional Status None recorded. Mental Status None recorded. Family History Relationship Description Onset Age of this Age Resolved Age Notes LastModified by Organization Details LastModified Time Father No current problems or disability [email or web address] Not available 10/2021 12:06:28 Father Hypertensive disorder MA, afib rvonsohsten Not available 06/03/2022 12:41:42 Mother No current problems or disability rvonsohsten Not available 10/2021 12:06:28 Brother Atrial fibrillation rvonsohsten Not available 08/03/2021 12:07:15 Medical History Condition Response Hyperlipidemia Y Hypertension Y Asthma Y Past Encounters Encounter ID Performer Location Encounter Start Date Encounter Closed Date Diagnosis/Indication Diagnosis SNOMED-CT Code Diagnosis ICD10 Code Diagnosis Note [id number] MD ANASTASIYA YANG MD [address] [facility], [address] [place] [address] 06/03/2022 11:25:54 06/03/2022 12:59:41 Chest pain 18740413 R07.9 aspirin, statin, beta-block er, ramipril add isosorbide in light of recent PAD an likely CAD would ideally like LDL below 70. We will obtain labs Essential hypertension 27836943 I10 slightly elevated however adding isosorbide . Hyperlipidemia 21244990 E78.5 in light of recent PAD an likely CAD would ideally like LDL below 70. We will obtain labscontin ue statin Peripheral arterial occlusive disease 175458055 I73.9 bilateral lower extremity arterial ultrasound which revealed monophasic flow to right dorsalis pedis; Has referral to see Dr. Baljeet Reyes. continue aspirin statin [id number] MD ANASTASIYA YANG MD [address] [facility], [address] [place] [id number] 06/17/2022 13:27:44 06/17/2022 14:20:50 Chest pain 65029720 R07.9 aspirin, statin, beta-block er, ramiprilst ill experienci ng chest pain and shortness of breathcath eterizatio n on reveals mild nonobstruc tive disease. left main normal, LAD mild nonobstruc tive coronary artery disease, circumflex mild nonobstruc tive coronary artery disease, RCA mild nonobstruc tive coronary artery disease LV-gram 60% Essential hypertension 89142585 I10 blood pressure within normal limits Hyperlipidemia 34988922 E78.5 request labs Peripheral arterial occlusive disease 771606096 I73.9 apparently per patient negative for PADnow being worked up for surgery neurologic al deficits [id number] MD ANASTASIYA YANG MD [address] [facility], [address] [place] [address] 9 08/16/2022 13:56:08 08/16/2022 14:31:07 Chest pain 78053104 R07.9 aspirin, statin, beta-block er, ramiprilst ill experienci ng chest pain and shortness of breathcath eterizatio n on reveals mild nonobstruc tive disease. left main normal, LAD mild nonobstruc tive coronary artery disease, circumflex mild nonobstruc tive coronary artery disease, RCA mild nonobstruc tive coronary artery disease LV-gram 60% Essential hypertension 39830830 I10 blood pressure within normal limits Hyperlipidemia 36921105 E78.5 request labs Peripheral arterial occlusive disease 682042192 I73.9 apparently per patient negative for PADnow being worked up for surgery neurologic al deficits Paroxysmal atrial fibrillation 480417221 I48.0 [id number] MD ANASTASIYA YANG MD [address] [facility], [address] [place] [address] 09/27/2022 11:02:06 09/27/2022 12:09:51 Chest pain 43252213 R07.9 aspirin, statin, beta-block er, ramiprilst ill experienci ng chest pain and shortness of breathcath eterizatio n on reveals mild nonobstruc tive disease. left main normal, LAD mild nonobstruc tive coronary artery disease, circumflex mild nonobstruc tive coronary artery disease, RCA mild nonobstruc tive coronary artery disease LV-gram 60% Essential hypertension 54969722 I10 blood pressure within normal limits Hyperlipidemia 09485892 E78.5 request labs Peripheral arterial occlusive disease 690329920 I73.9 apparently per patient negative for PADnow being worked up for surgery neurologic al deficits Paroxysmal atrial fibrillation 528020034 I48.0 Coronary atherosclerosis 773764028 I25.10 [id number] MD ANASTASIYA YANG MD [address] [facility], [address] [place] [address] 10/14/2022 09:44:57 10/14/2022 15:56:45 [id number] BLANCA BRADLEY MD [address] [facility], [address] [place] [address] 11/23/2022 14:47:09 11/23/2022 15:53:18 Essential hypertension 16469123 I10 blood pressure typically well controlled . He is to continue ramipril. He stopped taking his amlodipine on his own. Hyperlipidemia 96896000 E78.5 Continue atorvastat in 10 mg daily. Peripheral arterial occlusive disease 703843877 I73.9 CT angio chest/abdo men/pelvis 05/26/2022 with moderate aortic plaquearte rial ultrasound of the right lower extremity showing monophasic flow in the dorsalis pedis region. Otherwise both biphasic and triphasic flow throughout . Paroxysmal atrial fibrillation 305166277 I48.0 NSR on exam with couple isolated PACS.CHADV ASC2 Score = 4 (age, HTN, PAD)Cardia c telemetry did not reveal any bouts of atrial fibrillati on. However with his strong family history and elevated CHADS score would recommend continuing Eliquis 5 mg twice daily.Vilma ent is agreeable to continue the medication at this time with no significan t bruising or bleeding events. NEE DS ECHO ORDERED AT NEXT VISIT Coronary atherosclerosis 478010701 I25.10 Antiplatel et regimen: aspirin 81mg dailyAntia nginal regimen: noneAnti-l ipid therapy: atorvastat in 10mg daily Left Heart Catheteriz ation on ([facility] (formerly [facility]3]) revealedmi ld nonobstruc tive disease.le ft main normalLAD mild nonobstruc tive coronary artery disease,ci rcumflex mild nonobstruc tive coronary artery diseaseRCA mild nonobstruc tive coronary artery disease LV-gram 60% Non-cardia c chest pain 318611577 R07.89 pain consistent with GERD [id number] MD ANASTASIYA YANG MD [address] [facility], [address] [place] [address] 06/12/2023 09:46:46 06/12/2023 10:16:45 Atrial fibrillation 33985465 I48.91 Essential hypertension 21764349 I10 Hyperlipidemia 24299117 E78.5 Continue atorvastat in 10 mg daily. Peripheral arterial occlusive disease 388156849 I73.9 CT angio chest/abdo men/pelvis 05/26/2022 with moderate aortic plaquearte rial ultrasound of the right lower extremity showing monophasic flow in the dorsalis pedis region. Otherwise both biphasic and triphasic flow throughout . Paroxysmal atrial fibrillation 116000366 I48.0 NSR on exam with couple isolated PACS.CHADV ASC2 Score = 4 (age, HTN, PAD) Coronary atherosclerosis 892523114 I25.10 Antiplatel et regimen: aspirin 81mg dailyAntia nginal regimen: noneAnti-l ipid therapy: atorvastat in 10mg daily Left Heart Catheteriz ation on ([facility] (formerly [facility])[3]) revealedmi ld nonobstruc tive disease.le ft main normalLAD mild nonobstruc tive coronary artery disease,ci rcumflex mild nonobstruc tive coronary artery diseaseRCA mild nonobstruc tive coronary artery disease LV-gram 60% [id number] MD ANASTASIYA YANG MD [address] [facility], [address] [place] [address] 11/27/2023 12:54:03 11/27/2023 13:34:38 Atrial fibrillation 40963456 I48.0 Paroxysmal , most likely not followed accurately by the Apple watch that I think overestima chari his atrial fibrillati on burden due to frequent PACs. Essential hypertension 60598738 I10 Mostly controlled below 130/80. Hyperlipidemia 34674079 E78.5 Continue atorvastat in 10 mg daily. Peripheral arterial occlusive disease 059654073 I73.9 CT angio chest/abdo men/pelvis 05/26/2022 with moderate aortic plaquearte rial ultrasound of the right lower extremity showing monophasic flow in the dorsalis pedis region. Otherwise both biphasic and triphasic flow throughout . Paroxysmal atrial fibrillation 437005726 I48.0 NSR on exam with couple isolated PACS.CHADV ASC2 Score = 4 (age, HTN, PAD) Coronary atherosclerosis 929154734 I25.10 Antiplatel et regimen: aspirin 81mg dailyAntia nginal regimen: noneAnti-l ipid therapy: atorvastat in 10mg daily Left Heart Catheteriz ation on ([facility] ([facility]3]) revealedmi ld nonobstruc tive disease.le ft main normalLAD mild nonobstruc tive coronary artery disease,ci rcumflex mild nonobstruc tive coronary artery diseaseRCA mild nonobstruc tive coronary artery disease LV-gram 60% [id number] MD ANASTASIYA YANG MD [address] [facility], [address] [place] [address] 07/18/2024 11:34:49 07/18/2024 12:22:13 Atrial fibrillation 75501042 I48.0 Paroxysmal , most likely not followed accurately by the Apple watch that I think overestima chari his atrial fibrillati on burden due to frequent PACs. Essential hypertension 55940349 I10 Mostly controlled below 130/80. Hyperlipidemia 05063720 E78.5 Continue atorvastat in 10 mg daily.Labs noted, reviewed with patient today. Peripheral arterial occlusive disease 502141400 I73.9 CT angio chest/abdo men/pelvis 05/26/2022 with moderate aortic plaquearte rial ultrasound of the right lower extremity showing monophasic flow in the dorsalis pedis region. Otherwise both biphasic and triphasic flow throughout . Paroxysmal atrial fibrillation 467408083 I48.0 NSR on exam with couple isolated PACS.CHADV ASC2 Score = 4 (age, HTN, PAD)contin ue Eliquis Coronary atherosclerosis 530232872 I25.10 Antiplatel et regimen: NonAntiang inal regimen: noneAnti-l ipid therapy: atorvastat in 10mg daily Left Heart Catheteriz ation on ([facility] ([facility]3]) revealedmi ld nonobstruc tive disease.le ft main normalLAD mild nonobstruc tive coronary artery disease,ci rcumflex mild nonobstruc tive coronary artery diseaseRCA mild nonobstruc tive coronary artery disease LV-gram 60% [id number] MD ANASTASIYA YANG MD [address] [facility], [address] [place] [address] 08/14/2024 16:26:58 08/14/2024 16:53:15 Atrial fibrillation 75107579 I48.0 Paroxysmal , most likely not followed accurately by the Apple watch that I think overestima chari his atrial fibrillati on burden due to frequent PACs. Essential hypertension 23359686 I10 Mostly controlled below 130/80. Hyperlipidemia 59282201 E78.5 Continue atorvastat in 10 mg daily.Labs noted, reviewed with patient today. Peripheral arterial occlusive disease 432382240 I73.9 CT angio chest/abdo men/pelvis 05/26/2022 with moderate aortic plaquearte rial ultrasound of the right lower extremity showing monophasic flow in the dorsalis pedis region. Otherwise both biphasic and triphasic flow throughout . Paroxysmal atrial fibrillation 007971098 I48.0 NSR on exam with couple isolated PACS.CHADV ASC2 Score = 4 (age, HTN, PAD)contin ue Eliquis Coronary atherosclerosis 912923335 I25.10 Antiplatel et regimen: NonAntiang inal regimen: noneAnti-l ipid therapy: atorvastat in 10mg daily Left Heart Catheteriz ation on ([facility] ([facility]3]) revealedmi ld nonobstruc tive disease.le ft main normalLAD mild nonobstruc tive coronary artery disease,ci rcumflex mild nonobstruc tive coronary artery diseaseRCA mild nonobstruc tive coronary artery disease LV-gram 60% Atypical chest pain 1025 90781 R07.89 More likely musculoske letal but cannot rule out ischemic process check ECHO and stress testing. If benign follow up as regularly scheduled [id number] MD ANASTASIYA YANG MD [address] [facility], [address] [place] [address] 11/08/2024 11:42:24 11/08/2024 12:27:18 Atrial fibrillation 93934564 I48.0 Paroxysmal Essential hypertension 66475659 I10 Mostly controlled below 130/80. Hyperlipidemia 63363253 E78.5 Continue atorvastat in 10 mg daily.Labs noted, reviewed with patient today. Peripheral arterial occlusive disease 325383096 I73.9 CT angio chest/abdo men/pelvis 05/26/2022 with moderate aortic plaquearte rial ultrasound of the right lower extremity showing monophasic flow in the dorsalis pedis region. Otherwise both biphasic and triphasic flow throughout . Paroxysmal atrial fibrillation 239017218 I48.0 NSR on exam with couple isolated PACS.CHADV ASC2 Score = 4 (age, HTN, PAD)contin ue Eliquis Coronary atherosclerosis 916471174 I25.10 Antiplatel et regimen: NonAntiang inal regimen: noneAnti-l ipid therapy: atorvastat in 10mg daily Left Heart Catheteriz ation on ([facility] ([facility]3]) revealedmi ld nonobstruc tive disease.le ft main normalLAD mild nonobstruc tive coronary artery disease,ci rcumflex mild nonobstruc tive coronary artery diseaseRCA mild nonobstruc tive coronary artery disease LV-gram 60% Health Concerns Section Related Observation LastModified by Organization Detai ls LastModified Time None Recorded Concern Status LastModified by Organization Details LastModified Time None Recorded Advance Directives Directive None Recorded Payers Insurance Date Sequence Insurance Name Policy Number Policy Guerrero Covered Member ID Guerrero Member ID Guarantor Name 11/04/2024 2 [employer] Rafael Rosalesom [id number] Rafael Rosalesom 11/05/2024 1 [place] Rafael Rosales Broom [id number] Rafael Broom 11/12/2024 2 [employer] (MEDICARE SUPPLEMENT) Rafael Rosalesom [id number] Rafael Broom 11/04/2024 1 [place] Rafael Broom [id number] Rafael Jack Notes Date Note Type Note Provider Name and Address Organization Details Recorded Time 06/12/2023 text/html 06/12/23dre pritchard during the summer, was off anticoagulation for several months, on aspirin, apple watch shows a pretty high daily burden of atrial fibrillation up to 12%. He has no complaints of chest pain dyspnea palpitations syncope or dizziness. EKG today shows sinus rhythm frequent PACs. ANASTSAIYA MORRIS MD [address] [facility],[address], [place], [address], [facility] - [facility] 06/16/2023 09:10:43 11/27/2023 text/html Follow-up visitT he patient is here for follow-up, continues to do well with no new cardiovascular events or cardiovascular symptoms. Specifically the patient denies chest pains, dyspnea, palpitations, orthopnea, edema, recent weight gain or significant weight loss. The patient remains compliant with medications and diet and does not report any side effects today. There is a regular exercise regimen that includes regular walks and light weight training. No recent incidents including accidents or falls. No bleeding or excessive bruising. There are regular visits to the primary care physician and labs have been done within the past 6 months. ANASTASIYA MORRIS MD [address] [facility],[address], [place], [address], [facility] - [facility] 11/28/2023 13:41:15 07/18/2024 text/html Follow-up visitT he patient is here for follow-up, continues to do well with no new cardiovascular events or cardiovascular symptoms. Specifically the patient denies chest pains, dyspnea, palpitations, orthopnea, edema, recent weight gain or significant weight loss. The patient remains compliant with medications and diet and does not report any side effects today. There is a regular exercise regimen that includes regular walks and light weight training. No recent incidents including accidents or falls. No bleeding or excessive bruising. There are regular visits to the primary care physician and labs have been done within the past 6 months. remains on anticoagulation, no bleeding or bruising. ANASTASIYA MORRIS MD [address] [facility],[address], [place], [address], [facility] - [facility] 07/19/2024 13:18:47 08/14/2024 text/html 78-year-old male presents to the office for concerns of chest pain. First occurred approximately a week ago. Describes pain is constant. Pain is located in his back by left scapula and he states when he lays down it radiates to his left chest. He denies any aggravating or alleviating factors. Pain is reproducible. There is no other associated symptoms. Twelve lead EKG reveals sinus frequent PACs, this is his baseline. No evidence of ischemia. JORGE ALBERTO WINSTON [address] [facility],[address], [place], [address], [facility] - [facility] 08/14/2024 16:55:54 11/08/2024 text/html Very pleasant 79-year-old male, paroxysmal atrial fibrillation on Eliquis, history of hypertensive disorder and dyslipidemia, for the most part he is an asymptomatic fibrillator, the Apple Heart shows a burden of between 8 and 17% daily. He has moderate aortic plaque, mild claudication and he is able to perform activities of daily life with no problem. He denies any bleeding or bruising, no accidents or falls. ANASTASIYA MORRIS MD [address] [facility],[address], [place], [address], [facility] - [facility] 11/09/2024 13:00:47
--- OUTSIDE RECORDS SUMMARY | 2024-12-05 11:12 | XMS_ITS | Patient Health Record ---
Author Organization [facility] Address [address] [place] [address] [address] [place], [place] [id number] Care Team Providers Care Musical String Maker Name Role Phone Jw Shaver Primary Care Provider [phone] Allergies No Known Allergies Reason For Referral No Information Medications Medication SIG (Take, Route, Frequency, Duration) Notes Start Date End Date Status Ramipril 10 MG 1 capsule Orally Onc e a day for 30 day(s) Active Metoprolol Succinate 50 MG 1 capsule Ora lly Once a day for 30 day(s) Active Pravastatin Sodium 40 MG 1 tablet Orally Once a day for 30 day(s) Active Immunizations Vaccine Route Administration Date Status Comme nts INFLUENZA Unknown 07/12/2021 Administered Social History Tobacco Use: Social History Observation Description Date Details (start date - stop date) Former Smoker NA - NA Alcohol Screen Question Answer Notes Did you have a drink contain ing alcohol in the past year? Yes How often did you have a dri nk containing alcohol in the past year? 2 to 3 times a week (3 points) How many drinks did you have on a typical day when you were drinking in the past year? 1 or 2 drinks (0 point) How often did you have 6 or more drinks on one occasion in the past year? Never (0 point) Points 3 Interpretation Negative Smoking Status Question Answer Notes Patient is a: former smoker How long has it been since you last smoked? > 10 years Fall Risk Screening Question Answer Notes Screening: No falls in the past year Problems Problem Type SNOMED Code ICD Code Onset Dates Problem Status W/U Status Risk Notes Problem Acute eustachian tube salpingitis (755871985) Acute Eustachian salpingitis, bilateral (H68.013) Active confirmed Problem Otitic barotrauma (19304426) Otitic barotrauma, initial encounter (T70.0XXA) Active confirmed Problem Otitic barotrauma (45441873) Otitic barotrauma, subsequent encounter (T70.0XXD) Active confirmed resolved Problem Deviated nasal septum (134661739) Deviated nasal septum (J34.2) Active confirmed Problem Chronic laryngitis (74576369) Chronic laryngitis (J37.0) Active confirmed Problem Postnasal drip (38223066) Postnasal drip (R09.82) Active confirmed Problem Impacted cerumen (33661643) Impacted cerumen, right ear (H61.21) Active confirmed Problem Sensorineural hearing loss, bilateral (466746932) Sensorineural hearing loss, bilateral (H90.3) Active confirmed Problem Gastro-esophagea l reflux disease without esophagitis (123623768) Gastro-esophagea l reflux disease without esophagitis (K21.9) Active confirmed Plan Of Treatment No Information Insurance Providers Payer Name Payer Address Payer Phone Subscriber Number Group Number Insured Name Patient Relationship to Insured Coverage Start Date Coverage End Date MEDICARE [address] [place] [phone] [id number] Rafael Santiago Self - patient is the insured [employer] Senior Supplement al/contine ntal [address] [address] [place] [address] [id number] Rafael Santiago Self - patient is the insured Medical (General) History Medical History History ICD Code hypertension hypercholesterolemia Surgical History Surgery Date(Month/Year) Hospitalization History Reason Date(Month/Year)
--- OUTSIDE RECORDS SUMMARY | 2024-12-05 11:12 | XMS_ITS | Data Portability ---
Author Organization [facility] Access Information Management, [id number] Address [address] [place] [address] Care Team Providers Care Inside Sales Account Executive Name Role Phone LESLI LOZA Primary Care Provider LESLI LOZA Referring Provider [phone] LESLI LOZA Primary Care Provider ANASTASIYA THOMAS Entry Level Lab Technician [phone] Assessment No assessment recorded. Plan of Treatment Reminders Order Date Submit Date Provider Last Modified By Organization Details Last Modified Time Details Appointments None recorded. Lab None recorded. Referral None recorded. Procedures ankle brachial index complete (PROC) - LORENZO w/ PVR 2021 022 [email or web address] [facility], [address] [place], [address], 15:15:23 Surgeries None recorded. Imaging None recorded. Medication Orders None recorded. Patient TargetsNo targets recorded. Patient InstructionsNo instructions recorded. Reason for Referral None Reported. Results Created Date Observation Date Name Description Value Unit Range Abnormal Flag Note LastModifiedBy Organization Detail LastModifiedTime 06/10/2005/26/2022 US, doppl er, arter ial No observ ation record ed. [email or web address] Not Available 06/10 14:37:19 06/17/2006/14/2022 ankle brach ial index compl ete (PROC ) No observ ation record ed. [email or web address] [facility] [address] [place], [address], 06/17/2022 16:24:52 Result Notes None recorded. Problems Name Problem SNOMED Code Status Onset Date Resolution Date Notes Provider Name and Address Organization Details Recorded Time Peripheral vascular disease 158978318 Active 022 Angella Kyle NP [address], [place], [address], [facility] 09:16:08 Problem Notes None recorded. Procedures Surgical History None recorded. Imaging Results Imaging Date Name Status LastModified by Organiz ation Details LastModified Time 05/26/2022 US, doppler, arterial completed [email or web address] Information not available 06/10/2022 14:37:19 06/14/2022 ankle brachial index complete (PROC) completed [email or web address] [facility] [address] [place], [address], 06/17/2022 16:24:52 Procedure Notes None recorded. Medical Equipment None Reported. Allergies No known drug allergies Medications Name Sig Start Date Stop Date Status Note LastModified by Organization Details LastModified Time azithromyci n 250 mg tablet TAKE 2 TABLETS BY MOUTH ON DAY 1, AND THEN TAKE 1 TABLET BY MOUTH ONCE A DAY ON DAY 2 THROUGH DAY 5 06/14 completed Not Available Not Available Not Available metoprolol succinate ER 50 mg tablet,exte nded release 24 hr TAKE 1 TABLET BY MOUTH ONCE DAILY active Not Available Not Available No t Available famotidine 40 mg tablet TAKE 1 TABLET BY MOUTH EVERY DAY AT BEDTIME 06/14 completed Not Available Not Available Not Available pravastatin 20 mg tablet TAKE 1 TABLET BY MOUTH ONCE DAILY active Not Available Not Available No t Available prednisone 5 mg tablets in a dose pack FOLLOW PACKAGE DIRECTION S 06/14 completed Not Available Not Available Not Available methylpredn isolone 4 mg tablets in a dose pack TAKE BY MOUTH DIRECTED ON INSIDE OF PACKAGE 06/14 completed Not Available Not Available Not Available albuterol sulfate HFA 90 mcg/actuati on aerosol inhaler INHALE 2 PUFFS BY MOUTH EVERY 6 HOURS NEEDED active Not Available Not Available No t Available ipratropium bromide 42 mcg (0.06 %) nasal spray USE 2 SPRAYS IN EACH NOSTRIL THREE TIMES DAILY 06/14 completed Not Available Not Available Not Available doxycycline hyclate 100 mg tablet TAKE 1 TABLET BY MOUTH TWICE DAILY FOR 10 DAYS 06/14 completed Not Available Not Available Not Available loratadine 10 mg tablet TAKE 1 TABLET BY MOUTH ONCE DAILY 06/14 completed Not Available Not Available Not Available ramipril 10 mg capsule TAKE 1 CAPSULE BY MOUTH ONCE DAILY active Not Available Not Available No t Available Asprin Ec Low Dose 81 mg tablet,walker yed release Take 1 tablet every day by oral route. active Not Available Not Available No t [...] kit Use as Directed on the Package 06/14 completed Not Available Not Available Not Available Vitals Date Recorded Body height Body mass index (BMI) Body weight Heart rate Systolic blood pressure Diastolic blood pressure Provider Name and Address Organization Details Last Updated DateTime 175.26 cm 32.5 kg/m2 77154.3 2 g 50 /min 138 mm[Hg] 74 mm[Hg] [facility] 08[facility]13 Social History Question Answer Notes LastModified by Organizat ion Details LastModified Time Tobacco Smoking Status Former Smoker [facility] 06/14/2022 08:55:56 When Did You Quit Smoking? 14+yearssinc elastcigaret te Information not available 06/14/2022 What Was The Date Of Your Most Recent Tobacco Screening? 06/14/2022 Information not available 06/14/2022 Sex: Unknown Functional Status None recorded. Mental Status None recorded. Family History Relationship Description Onset Age of this Age Resolved Age Notes LastModified by Organization Details LastModified Time Father No current problems or disability [email or web address] Not available 06/14 08:55:39 Mother No current problems or disability gerardo Not available 06/14 08:55:39 Notes:FATHER AND UNCLES HAVE VASCULAR ISSUES Medical History Condition Response Asthma Y Hypertension Y Past Encounters Encounter ID Performer Location Encounter Start Date Encounter Closed Date Diagnosis/Indication Diagnosis SNOMED-CT Code Diagnosis ICD10 Code Diagnosis Note [id number] Dhaval gnozalez MD [facility] [address] [place] [address] 06/14/2022 08:35:20 06/14/2022 11:59:11 Peripheral vascular disease 737562389 I73.9 Abnormal g ait due to muscle weakness 332986072 M62.81 Health Concerns Section Related Observation LastModified by Organization Detai ls LastModified Time None Recorded Concern Status LastModified by Organization Details LastModified Time None Recorded Advance Directives Directive None Recorded Payers Insurance Date Sequence Insurance Name Policy Number Policy Guerrero Covered Member ID Guerrero Member ID Guarantor Name 09/09/2022 2 [employer] OPTIONS (MEDICARE SUPPLEMENT) Rafael Santiago [id number] Rafael Santiago 09/09/2022 1 [place] Rafael Santiago [id number] Rafael Santiago 09/09/2022 2 [employer] (MEDICARE REPLACEMENT PPO) Rafael Santiago [id number] Rafael Santiago 09/09/2022 2 [employer] J (MEDICARE SUPPLEMENT) Rafael Santiago [id number] Rafael Santiago Notes Date Note Type Note Provider Name and Address Organization Details Recorded Time 06/14/2022 text/html 76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 He is complaining of progressive weakness to the BLE. He reports ambulating and playing gold with no claudication. He has no tissue loss. He underwent mri Lspine. He does not smokeHe has hx of htn and chol.Outpt US with monophasic waveforms Dhaval King MD [address], [place], [address], [facility]. 06/14/2022 20:02:24
--- OUTSIDE RECORDS SUMMARY | 2024-12-05 11:13 | XMS_ITS ---
Author Organization [facility] Patient Communicator [facility] Address [address] [place] [address] Care Team Providers Care Tire Fixer Name Role Phone Han Jung MD Primary Care Provider Allergies No Known Allergies Results Component Value Reference Range Notes CBC (INCLUDES DIFF/PLT) Reviewed date:09/10/2024 08:10:21 AM Interpretation: Performing Lab:[place], [id number], [id number] DR. Cherise Aponte Notes/Report: 0 0 0 0 0 WHITE BLOOD CELL COUNT 7.8 3.8-10.8 Thousand/ uL RED BLOOD CELL COUNT 5.14 4.20-5.80 Million/uL HEMOGLOBIN 16.0 13.2-17.1 g/dL HEMATOCRIT 49.4 38.5-50.0 % MCV 96.1 80.0-100.0 fL MCH 31.1 27.0-33.0 pg MCHC 32.4 32.0-36.0 g/dL not clinically significant; however, it should be interpreted with caution in correlation with other red cell parameters and the patient's clinical For adults, a slight decrease in the calculated MCHC value (in the range of 30 to 32 g/dL) is most likely condition. RDW 14.0 11.0-15.0 % PLATELET COUNT 286 140-400 Thousand/uL MPV 10.6 7.5-12.5 fL ABSOLUTE NEUTROPHILS 5132 1625-5047 cells/uL ABSOLUTE LYMPHOCYTES 0945 629-8142 cells/uL ABSOLUTE MONOCYTES 772 200-950 cells/uL ABSOLUTE EOSINOPHILS 187 15-500 cells/uL ABSOLUTE BASOPHILS 78 0-200 cells/uL NEUTROPHILS 65.8 LYMPHOCYTES 20.9 MONOCYTES 9.9 EOSINOPHILS 2.4 BASOPHILS 1.0 COMPREHENSIVE METABOLIC PANE L Reviewed date:09/10/2024 08:10:21 AM Interpretation: [facility]forming [id number], [id number] [address]. Cherise Aponte Notes/Report: 0 0 0 0 0 GLUCOSE 83 65-99 mg/dL Fasting referen ce interval UREA NITROGEN (BUN) 18 7-25 mg/dL CREATININE 0.93 0.70-1.22 mg/dL EGFR 83 > OR = 60 mL/min/1.73m2 BUN/CREATININE RATIO SEE NOTE: 6-22 (calc) Not Reported: BUN and Creatinine are within reference range. SODIUM 141 135-146 mmol/L POTASSIUM 4.4 3.5-5.3 mmol/L CHLORIDE 102 98-110 mmol/L CARBON DIOXIDE 30 20-32 mmol/L CALCIUM 9.6 8.6-10.3 mg/dL PROTEIN, TOTAL 7.0 6.1-8.1 g/dL ALBUMIN 4.0 3.6-5.1 g/dL GLOBULIN 3.0 1.9-3.7 g/dL (calc) ALBUMIN/GLOBULIN RATIO 1.3 1.0-2.5 (calc) BILIRUBIN, TOTAL 0.6 0.2-1.2 mg/dL ALKALINE PHOSPHATASE 76 35-144 U/L AST 22 10-35 U/L ALT 20 9-46 U/L LIPID PANEL Reviewed date:09/10/2024 08:10:21 AM Interpretation: Performing Lab:[facility], [id number] DR. Cherise Aponte Notes/Report: 0 0 0 0 0 CHOLESTEROL, TOTAL 201 <200 mg/dL HDL CHOLESTEROL 58 > OR = 40 mg/dL TRIGLYCERIDES 152 <150 mg/dL LDL-CHOLESTEROL 116 Desirable range <100 mg/dL for primary prevention; <70 mg/dL for patients with CHD or diabetic patients Reference range: <100 calculation, which is a validated novel method providing Saroj JONAS et al. CANDICE. 2013;310(19): 9800-9949 estimation of LDL-C. LDL-C is now calculated using the [facility] (http://education.[employer]/faq/FAQ16 4) with > or = 2 CHD risk factors. better accuracy than the Friedewald equation in the CHOL/HDLC RATIO 3.5 <5.0 (calc) NON HDL CHOLESTEROL 143 <130 mg/dL (calc) (LDL-C of <70 mg/dL) is considered a therapeutic For patients with diabetes plus 1 major ASCVD risk factor, treating to a non-HDL-C goal of <100 mg/dL option. TSH W/REFLEX TO FT4 Reviewed date:09/10/2024 08:10:21 AM Interpretation: Performing Lab:[place], [facility] [id number] [address] DR. Cherise Aponte Notes/Report: 0 0 0 0 0 TSH W/REFLEX TO FT4 3.17 0.40-4.50 mIU/L URINALYSIS, COMPLETE Reviewed date:09/10/2024 08:10:21 AM Interpretation: Performing Lab:[facility], [id number] DR. Cherise Aponte Notes/Report: 0 0 [...] HYALINE CAST NONE SEEN NONE SEEN /LPF REASON FOR VISIT AWV+161 Medications Medication SIG (Take, Route, Frequency, Duration) Notes Start Date End Date Status linaCLOtide 145 MCG 1 capsule at least [...] e a day for 90 days Active Atorvastatin Calcium 10 MG 1 tablet Orally Once a day for 90 days Active Eliquis 5 MG 1 tablet Orally twic e a day Active Social History Tobacco Use: Social History Observation Description Date Details (start date - stop date) Former Smoker 07/31/1963 - 07/31/1978 Tobacco Use/Smoking Question Answer Notes Are you a former smoker When did you start smoking? 07/31/1963 When did you stop smoking? 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) Active confirmed Problem 845036 Uncomplicated alcohol use (F10.90) Active confirmed Problem CAD in [place] artery (I25.10) Active confirmed Vital Signs Height 68 inches 09/09/2024 Weight 217 lbs 09/09/2024 BMI 32.99 kg/m2 09/09/2024 Blood pressure systolic 120 mm Hg 09/09/19 25 Blood pressure diastolic 74 mm Hg 025 Heart Rate 73 /min 09/09/2024 Respiratory Rate 21 /min 09/09/2024 Temperature 96.4 degrees Fahrenheit 09/09/19 25 Oximetry 96 % 09/09/2024 Shelbie Isaac 09/09/2024 08:37:07 AM EST > Encounters Encounter Location Date Provider Diagnosis [facility] [address] [facility] [address] [place] [address] 09/09/2024 Han Jung CAD in [place] artery I25.10 ; Encounter for general adult [...] radiculopathy M54.16 ; Coronary artery disease involving [place] coronary artery of [place] heart with angina pectoris I25.119 and Uncomplicated alcohol use F10.90 Assessments Encounter Date Diagnosis (ICD Code) Assessment Notes Treatment Notes Treatment Clinical Notes 09/09/2024 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 Patient will remain on atorvastatin 10 mg daily, metoprolol tartrate 50 mg twice a day, ramipril 10 mg daily and Eliquis 5 mg twice a day. 09/09/2024 Encounter for genera l adult medical examination with abnormal findings (ICD-10 - Z00.01) Patient is scheduled for wellness examination. Recommend to exercise per [place] [employer] guidelines. Eye examination yearly advised. EKG shows normal sinus rhythm. Laboratory data will be drawn today and future care will be dictated by test result. Recommend follow-up with her supervisor cytogenetic laboratory [place] in 6 months 09/09/2024 Peripheral arterial disease (ICD-10 - I73.9) Chronic and stable continue to exercise per [place] [employer] guidelines. Patient will remain on [...] exercises. 09/09/2024 Coronary artery dise ase involving [place] coronary artery of [place] heart with angina pectoris (ICD-10 - I25.119) Chronic and stable continue to exercise per [place] [employer] guidelines. Patient will remain on [...] establishing a treatment plan Plan Of Treatment Treatment Notes Assessment Notes CAD in [place] artery Chronic and stable continue to exercise per [place] [employer] guidelines. Patient will remain on atorvastatin 10 mg daily, metoprolol tartrate 50 mg twice a day, ramipril 10 mg daily and Eliquis 5 mg twice a day. Encounter for general adult medical examination with abnormal findings Patient is scheduled for wellness examination. Recommend to exercise per [place] [employer] guidelines. Eye examination yearly advised. EKG shows normal sinus rhythm. Laboratory data will be drawn today and future care will be dictated by test result. Recommend follow-up with her supervisor cytogenetic laboratory [place] in 6 months Peripheral arterial disease Chronic and stable continue to exercise per [place] [employer] guidelines. Patient will remain on atorvastatin 10 mg daily, metoprolol tartrate 50 mg twice a day, ramipril 10 mg daily and Eliquis 5 mg twice a day. Mixed hypercholesterolemia a nd hypertriglyceridemia Chronic and stable continue low-cholesterol diet and to remain on atorvastatin 10 mg daily. Laboratory data drawn today and future care will be dictated by test results recommend follow-up in 6 months. Mild intermittent asthma without complic ation Chronic and stable. Doing well without pain continue surveillance Allergic rhinitis, unspecifi ed seasonality, unspecified trigger Chronic and stable. Patient is doing well without pharmacological treatment continue surveillance First degree AV block Chronic and stable . Continue surveillance Erectile dysfunction, unspec ified erectile dysfunction type Chronic and stable continue surveillance. Tobacco abuse, in remission History of t obacco use. Continue surveillance Lung nodule Chronic and stable n o further screening required. Lung fibrosis Chronic and stable. Patient asymptomatic continue surveillance and longitudinal care with Dr. 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 Recommend to continue with lower extremity strengthening exercises. Paroxysmal atrial fibrillation Chronic a nd stable rate control metoprolol titrate 50 mg twice a day and to remain on Eliquis 5 mg twice a day Slow transit constipation Chronic and in termittent. Recommend a trial of Linzesss 145 mg as t he is not responding to MiraLAX and docusate sodium daily Other nonthrombocytopenic purpura Chroni c and stable continue surveillance. Lumbar radiculopathy Chronic and stable continue to improve. Recommend to continue with lower extremity strengthening exercises. Coronary artery disease invo lving [place] coronary artery of [place] heart with angina pectoris Chronic and stable continue to exercise per [place] [employer] guidelines. Patient will remain on atorvastatin 10 mg daily, metoprolol tartrate 50 mg twice a day, ramipril 10 mg daily and Eliquis 5 mg twice a day. Uncomplicated alcohol use Chronic and st able minimal alcohol consumption continue surveillance Other I have reviewed and updated the HPI, Current Medications, PFSH, ROS, and Preventive Medicine Screening done by ancillary staff. Patient was given a personalized prevention plan. I spent (45) minutes on this patient encounter reviewing history, performing the exam and establishing a treatment plan Future Test Test Name Order Date LIPID PANEL 09/09/2025 COMPREHENSIVE METABOLIC PANEL 09/09/2025 CBC (INCLUDES DIFF/PLT) 09/09/2025 URINALYSIS, COMPLETE 09/09/2025 TSH W/REFLEX TO FT4 09/09/2025 Next Appt Details Follow Up: 1 Year, Reason: a nnual Provider Name:Han gonzalez, 09/15/2025 08:40:00 AM, [address], [address], [place], [address], Procedure Notes * Category Sub-Category Detail Notes *Venipuncture Venipuncture Was Verbal consent obtained ?: Yes Needle guage: 23 G butterfly needle used Location: Right Antecubital area Was the venipuncture successful?: Yes Number of attempts:: 2 How did the patient tolerate the procedure?: Patient tolerated procedure well What lab was specimen sent t o?: [facility] Performed by:: Associate: Name ( [place]) Wander e and Time ( 09/09/24@ 9:15AM ) Progress Notes * ZORAIDA WAYNEDOB:1945 (78 yo M)Acc No.[id number]:09/09/2024 Progress Note Patient: ZORAIDA PARDO Provider: Cleve Jung MD :1945 A ge:78 Y S ex:Male Date:09/09/2024 Address:[address] [place] [address], [id number] Structured Data:General cons ent obtained : Written; Date obtained: : 05/19/2022 Subjective: * Chief Complaints: * 1 . AWV+161. * HPI: C oordination of Care: Providers and Specialists D o you have other providers/specialists? Y es C OA-Care of Older Adults: DME D o you use a DME company? N o Functional Assessment H ow often does your physical health interfere with your daily activities? A lmost Never H earing H earing Aids or Device V ision C ontacts AWV Cognitive Assessment D o you have any concerns about your memory??No D o any of your friends or family have any concerns about your memory? N o ( Use MiniCog for patients 65-84 yrs and SLUMS for patients >85 yrs in addition to above) . Activities of Daily Living (ADL)/Instrumental ADL C urrent physical activity as compared to last year? D ecreased D o you require assistance with: n o assistance needed D o you have leakage/incontinence issues? N one Fall Risk Assessment H ave you fallen in the past year? N o D o you worry about falling? N o D o you feel unsteady when standing or walking? N o D o you use any assistive devices? N o T kurt up and Go Test (TUG) P erformed T otal time to complete test in seconds: 9 .83 Advance Care Planning D o you have Advanced Directives, Living Will, or Surrogate Decision Letter? Y es I s there a copy in the patient's record? N o Pain Assessment/Controlled Substance Prescribing A re you currently experiencing pain of any kind? N o A re you currently under pain management? N o D epression Screening: PHQ-9 L ittle interest or pleasure in doing things?Not at all F eeling down, depressed, or hopeless N ot at all T rouble falling or staying asleep, or sleeping too much N ot at all F eeling tired or having little energy N ot at all P oor appetite or overeating N ot at all F eeling bad about yourself or that you are a failure, or have let yourself or your family down N ot at all T rouble concentrating on things, such as reading the newspaper or watching television N ot at all M oving or speaking so slowly that other people could have noticed; or the opposite, being so fidgety or restless that you have been moving around a lot more than usual N ot at all T houghts that you would be better off or of hurting yourself in some way N ot at all T otal Score 0 Time Spent on Depression Screening: N umber of minutes spent on screening test:?2 . T APS 1 Screening: TAPS 1 I n the PAST 12 MONTHS, how often have you used any tobacco products? N ever I n the PAST 12 MONTHS, how often have you had 5 or more drinks containing alcohol in one day? One standard drink is about 1 small glass of wine (5 oz), 1 beer (12 oz), or 1 single shot of liquor. N ever (Males Only) I n the PAST 12 MONTHS, how often have you had 4 or more drinks containing alcohol in one day? One standard drink is about 1 small glass of wine (5 oz), 1 beer (12 oz), or 1 single shot of liquor. ( Females Only) I n the PAST 12 MONTHS, how often have you used any drugs including marijuana, cocaine or crack, heroin, methamphetamine (crystal meth), hallucinogens, ecstasy/MDMA? N ever I n the PAST 12 MONTHS, how often have you used any prescription medications just for the feeling, more than prescribed or that were not prescribed for you? Prescription medication that may be used this way: Opiate pain relievers (for example, OxyContin, Vicodin, Percocet, Methadone) Medications for anxiety or sleeping (for example, Xanax, Ativan, Klonopin) Medications for ADHD (for example, Adderall or Ritalin) N ever I f any of the above questions are positive or patient is on opiates or BZDs please proceed to SUDS template . I n the PAST 12 MONTHS, how often have you had 5 or more drinks (IF MALE) or 4 or more drinks (IF FEMALE) containing alcohol in one day? One standard drink is about 1 small glass of wine (5 oz), 1 beer (12 oz), or 1 single shot of liquor. N ever Time Spent on Alcohol Screening: N umber of minutes spent on screening test:?2 . C OPD: COPD Questionnaire D uring the past 4 weeks, how much of the time did you feel short of breath? N one of the time (0) D o you ever cough up any stuff, such as mucus or phlegm? N o, Never (0) P lease select the answer that best describes you in the past 12 months, I do less than I used to because of my breathing problems. S trongly disagree (0) H ave you smoked at least 100 cigarettes in your ENTIRE LIFE? Y es (2) H ow old are you? A ge 70 + (2) T otal Score 4 D o you currently smoke or have smoked in the past? Y es F or how many years have you smoked? 1 5 yrs O n an average how many cigarettes did you smoke per day? 1 Pack O n an average how many cigarettes did you smoke per day? 2 0 M ini-Cog: Scoring W ord Recall 2 (0-3) C lock Draw 2 (0: if abnormal, 2: if normal) T otal Score 4 (3-word recall with normal clock = Pass, 1-2 word recall with normal clock = Pass, 1-2 word recall with abnormal clock = Fail, 0 word recall = Fail) . .: Patient is scheduled for his wellness examination. I am monitoring his blood pressure, cholesterol and atrial fibrillation. He has been compliant with his medication. He is feeling well. Unfortunately he is not exercising as much but denies any complaints. Recently had a cardiac stress test by his flight radio operator which was unremarkable. * ROS: G eneral/Constitutional: Patient denies c hills, fatigue, fever, night sweats, weakness, weight change, trouble sleeping. H EENT/Neck: Head P atient denies headache, head injury, neck pain. E yes P atient denies blurring, vision loss, blind spots, floaters, diplopia, irritation, foreign body, pain, discharge, photophobia, glasses, contacts, Last eye exam:. E ars P atient denies earaches, tinnitus. N ose and Sinuses P atient denies rhinnorrhea, epistaxis, sinus pain, sinus drainage. M outh and Pharynx P atient denies sore throats, hoarseness, dysphagia, bleeding, dentures, sore tongue. A llergy/Immunology: Patient denies u rticaria, hay fever, persistent infections. E ndocrine: Patient denies f luctuation in energy, heat intolerance, cold intolerance, polydipsia, polyphagia, polyuria. R espiratory: Patient denies c ough, wheezing, stridor, hemoptysis, shortness of breath. C ardiovascular: Patient denies c hest pain, dyspnea on exertion, palpitations, fatigue, heart attack, irregular heartbeat, leg edema. G astrointestinal: Patient denies d ysphagia, nausea, vomiting, diarrhea, heartburn, change in bowel habits, jaundice, rectal bleeding, constipation. H ematology: Patient denies e asy bruising, easy bleeding, petechiae, enlarged lymph nodes. G enitourinary: Patient denies b lood in the urine, burning on urination, nocturia, difficulty urinating, frequent urination, incontinence, decreased urinary stream. ? M usculoskeletal: Patient denies m uscle or joint pain, muscle cramps,stiffness, arthritis, swollen joints. P eripheral Vascular: Patient denies c laudication, leg cramps. S kin: Patient denies r ashes, itching, bleeding, skin lesion(s), hair or nail changes. N eurologic: Patient denies l oss of consciousness, paralysis, weakness, numbness, slurred speech, seizures, tremors, nervousness, depression, stress, memory loss. ? * Medical History: H ypercholesterolemia with hyperglyceridemia, HTN (hypertension), Asthma, Gallstones, Skin Cancer. * Surgical History: c ervical spinal fusion t1 06/2022, cholecystectomy , skin cancer removal , Gallbladder removed 01/2024. * Hospitalization/Major Diagno stic Procedure: c ervical spinal surgery 06/2022, Gallstones with emergency cholecystectomy 01/2023. * Family History: B rother: 78 yrs, Atrial Fib. M other: 82 yrs, Natural causes, hypertension. F ather: 85 yrs, heart disease. 5 brother(s) . 2 son(s) , 1 daughter(s) . .? family hx of mental illness,drug abuse,alcoholism- pt denies. * Social History: T obacco Use: T obacco Use/Smoking A re you a f ormer smoker W hen did you start smoking? 0 07/31/1963 W hen did you stop smoking? 0 07/31/1978 F ood Insecurities: F ood Insecurity Screener W ithin the past 12 months we worried whether our food would run out before we got money to buy more. N ever true W ithin the past 12 months the food that we bought just didn't last and we didn't have money to get more. N ever true F ood Bank resources offered? N ot offered M otor Vehicle Safety: D Flexenclosure safety D o you wear a seat belt? 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 * Medications: T aking Atorvastatin Calcium 10 MG Tablet 1 tablet Orally Once a day , Taking Eliquis 5 MG Tablet 1 tablet Orally twice a day , Taking linaCLOtide 145 MCG Capsule 1 capsule at least 30 minutes before the first meal of the day on an empty stomach Orally Once a day As needed, Notes to Pharmacist: as needed, Taking Metoprolol Tartrate 50 MG Tablet 1 tablet with food Orally once a dAY , Taking MiraLax 17 GM Packet 1 packet mixed with 8 ounces of fluid Orally Once a day As needed, Taking Ramipril 10 MG Capsule 1 capsule Orally Once a day , Discontinued Docusate Sodium 100 MG/10ML Liquid 10 mL as needed Orally twice a day , Discontinued traMADol HCl 50 MG Tablet 1 tablet as needed Orally every 4 hours , Medication List reviewed and reconciled with the patient * Allergies: N .K.D.A. Objective: * Vitals: H t: 68 inches, Wt:217lbs, BMI:32.99, BP:120/74mm Hg, Pulse sittin, RR:21/min, Temp:96.4F, Oxygen sat %:96%, Pain scale:0, Weight change: 7 lbs. MarlinToma 09/09/2024 08:37:07 AM EST >. * Examination: G eneral Examination New: GENERAL APPEARANCE: A lert, cooperative, well developed and well nourished, no acute distress. SKIN: G ood turgor, normal texture, warm, dry, no rashes appreciated . HEENT: H EAD: N ormocephalic/atraumatic,EARS: h earing grossly intact, external ears and canals normal,EYES: C lear conjuctiva, Pupils Equal, Round, Reactive to Light (PERRL),NOSE: I nferior turbinates normal, no nasal congestion,THROAT: n o oropharyngeal inflammation, swelling, exudates or lesions. NECK/THYROID: S upple, no lymphadenopathy, no mass, no thyromegaly, non-tender, normal range of motion. RESPIRATORY: N onlabored, clear to auscultation bilaterally, no rhonchi, no wheezes or crackles. CARDIOVASCULAR: R egular rate and rhythm, normal S1S2, no S3, S4, murmur or rub. ABDOMEN: S oft, non-tender, non-distended, no organomegaly, no masses, bowel sounds are normal. EXTREMITIES: N o clubbing, cyanosis, or edema. NEUROLOGIC EXAM: A lert and oriented x 3, CN's II-XII grossly intact, no gross motor or sensory deficit. MUSCULOSKELETAL: N ormal gait and station. PSYCH: B ehavior and affect normal, follows simple commands, no hallucinations. .. Assessment: * Assessment: 1. E ncounter for general adult medical examination with abnormal findings - Z00.01 (Primary)? 2. C AD in [place] artery - I25.10 3 . P eripheral arterial disease - I73.9 4 . M ixed hypercholesterolemia and hypertriglyceridemia - E78.2 5. M ild intermittent asthma without complication - J45.20 6 .?Allergic rhinitis, unspecified seasonality, unspecified trigger - J30.9 7 .?First degree AV block - I44.0 8 . E rectile dysfunction, unspecified erectile dysfunction type - N52.9 9 . T obacco abuse, in remission - F17.201 ?10. L ronald nodule - R91.1 1 1. L ronald fibrosis - J84.10 1 2. H earing loss - H91.90 1 3. H COLLECTION SYSTEMS FOREMAN (herniated nucleus pulposus with myelopathy), thoracic - M51.04 1 4. P aroxysmal atrial fibrillation - I48.0 1 5. S low transit constipation - K59.01 1 6. O ther nonthrombocytopenic purpura - D69.2 1 7. L umbar radiculopathy - M54.16 1 8. C oronary artery disease involving [place] coronary artery of [place] heart with angina pectoris - I25.119 1 9. U ncomplicated alcohol use - F10.90 Plan: * Treatment: Notes: Patient is scheduled for wellness examination. Recommend to exercise per [place] [employer] guidelines. Eye examination yearly advised. EKG shows normal sinus rhythm. Laboratory data will be drawn today and future care will be dictated by test result. Recommend follow-up with her supervisor cytogenetic laboratory [place] in 6 months??2.?CAD in [place] artery?LAB: LIPID PANEL (Collection Date & Time - 09/09/2024 09:38 AM) ?LAB: COMPREHENSIVE METABOLIC PANEL (Collection Date & Time - 09/09/2024 09:38 AM) ?LAB: CBC (INCLUDES DIFF/PLT) (Collection Date & Time - 09/09/2024 09:38 AM) ?LAB: URINALYSIS, COMPLETE (Collection Date & Time - 09/09/2024 09:38 AM) ?LAB: TSH W/REFLEX TO FT4 (Collection Date & Time - 09/09/2024 09:38 AM) ?LAB: CBC (INCLUDES DIFF/PLT) (Ordered for 09/09/2025) ?LAB: COMPREHENSIVE METABOLIC PANEL (Ordered for 09/09/2025) ?LAB: LIPID PANEL (Ordered for 09/09/2025) ?LAB: TSH W/REFLEX TO FT4 (Ordered for 09/09/2025) ?LAB: URINALYSIS, COMPLETE (Ordered for 09/09/2025) Notes: Chronic and stable continue to exercise per [place] [employer] guidelines. Patient will remain on atorvastatin 10 mg daily, metoprolol tartrate 50 mg twice a day, ramipril 10 mg daily and Eliquis 5 mg twice a day.?? 3.?Peripheral arterial disease?LAB: LIPID PANEL (Collection Date & Time - 09/09/2024 09:38 AM) ?LAB: COMPREHENSIVE METABOLIC PANEL (Collection Date & Time - 09/09/2024 09:38 AM) ?LAB: CBC (INCLUDES DIFF/PLT) (Collection Date & Time - 09/09/2024 09:38 AM) ?LAB: URINALYSIS, COMPLETE (Collection Date & Time - 09/09/2024 09:38 AM) ?LAB: TSH W/REFLEX TO FT4 (Collection Date & Time - 09/09/2024 09:38 AM) ?LAB: CBC (INCLUDES DIFF/PLT) (Ordered for 09/09/2025) ?LAB: COMPREHENSIVE METABOLIC PANEL (Ordered for 09/09/2025) ?LAB: LIPID PANEL (Ordered for 09/09/2025) ?LAB: TSH W/REFLEX TO FT4 (Ordered for 09/09/2025) ?LAB: URINALYSIS, COMPLETE (Ordered for 09/09/2025) Notes: Chronic and stable continue to exercise per [place] [employer] guidelines. Patient will remain on atorvastatin 10 mg daily, metoprolol tartrate 50 mg twice a day, ramipril 10 mg daily and Eliquis 5 mg twice a day.??4.?Mixed hypercholesterolemia and hypertriglyceridemia?LAB: LIPID PANEL (Collection Date & Time - 09/09/2024 09:38 AM) ?LAB: COMPREHENSIVE METABOLIC PANEL (Collection Date & Time - 09/09/2024 09:38 AM) ?LAB: CBC (INCLUDES DIFF/PLT) (Collection Date & Time - 09/09/2024 09:38 AM) ?LAB: URINALYSIS, COMPLETE (Collection Date & Time - 09/09/2024 09:38 AM) ?LAB: TSH W/REFLEX TO FT4 (Collection Date & Time - 09/09/2024 09:38 AM) ?LAB: CBC (INCLUDES DIFF/PLT) (Ordered for 09/09/2025) ?LAB: COMPREHENSIVE METABOLIC PANEL (Ordered for 09/09/2025) ?LAB: LIPID PANEL (Ordered for 09/09/2025) ?LAB: TSH W/REFLEX TO FT4 (Ordered for 09/09/2025) ?LAB: URINALYSIS, COMPLETE (Ordered for 09/09/2025) Notes: Chronic and stable continue low-cholesterol diet and to remain on atorvastatin 10 mg daily. Laboratory data drawn today and future care will be dictated by test results recommend follow-up in 6 months.??5.?Mild intermittent asthma without complication? Notes: Chronic and stable. Doing well without pain continue surveillance?? 6.?Allergic rhinitis, unspecified seasonality, unspecified trigger? Notes: Chronic and stable. Patient is doing well without pharmacological treatment continue surveillance??7.?First degree AV block? Notes: Chronic and stable. Continue surveillance??8.?Erectile dysfunction, unspecified erectile dysfunction type? Notes: Chronic and stable continue surveillance.??9.?Tobacco abuse, in remission ? Notes: History of tobacco use. Continue surveillance??10.?Lung nodule? Notes: Chronic and stable no further screening required.??11.?Lung fibrosis? Notes: Chronic and stable. Patient asymptomatic continue surveillance and longitudinal care with Dr. Bell Pulmonary physician??12.?Hearing loss? Notes: Chronic and stable continue surveillance??13.?HNP (herniated nucleus pulposus with myelopathy), thoracic? Notes: Chronic and stable continue to improve. Recommend to continue with lower extremity strengthening exercises.??14.?Paroxysmal atrial fibrillation? Notes: Chronic and stable rate control metoprolol titrate 50 mg twice a day and to remain on Eliquis 5 mg twice a day??15.?Slow transit constipation? Notes: Chronic and intermittent. Recommend a trial of Linzesss 145 mg as t he is not responding to MiraLAX and docusate sodium daily??16.?Other nonthrombocytopenic purpura? Notes: Chronic and stable continue surveillance.??17.?Lumbar radiculopathy? Notes: Chronic and stable continue to improve. Recommend to continue with lower extremity strengthening exercises.??18.?Coronary artery disease involving [place] coronary artery of [place] heart with angina pectoris? Notes: Chronic and stable continue to exercise per [place] [employer] guidelines. Patient will remain on atorvastatin 10 mg daily, metoprolol tartrate 50 mg twice a day, ramipril 10 mg daily and Eliquis 5 mg twice a day.?? 19.?Uncomplicated alcohol use? Notes: Chronic and stable minimal alcohol consumption continue surveillance?? 20.?Others? Notes: I have reviewed and updated the HPI, Current Medications, PFSH, ROS, and Preventive MedicineScreening done by ancillary staff.Patient was given a personalized prevention plan. I spent (45) minutes on this patient encounter reviewing history, performing the exam and establishing a treatment plan?? * Procedures: * Venipuncture: Venipuncture W as Verbal consent obtained? Y es N eedle guage 2 3 G butterfly needle used L ocation R ight Antecubital area W as the venipuncture successful? Y es N umber of attempts: 2 H ow did the patient tolerate the procedure??Patient tolerated procedure well W hat lab was specimen sent to? [facility] P erformed by: A ssociate: Name ( [place]) Date and Time ( 09/09/24@ 9:15AM ) * Procedure Codes: 3 6415 VENIPUNCT, ROUTINE-In House, 73141 VENIPUNCT, ROUTINE-In House * Preventive Medicine: Personal Prevention Plan: C ardiovascular Screening (Cholesterol): Last Done: 0 09/09/2024 . Next Due: 0 09/09/2025 . D iabetes Screening (A1c, Fasting Blood Sugar): Last Done: 0 09/09/2024 . Next Due: 0 09/09/2025 . H epatitis C Screening (if applicable): Last Done: N O RISK FACTOR Next Due: D OCTOR DISCRETION H IV testing (if applicable): Last Done: N O RISK FACTOR Next Due: D OCTOR DICRETION P rostate Cancer Screening (PSA): Last Done: 0 09/09/2024 . Next Due: 0 09/09/2025 . A bdominal Aortic Aneurysm Screening (Abdominal US screening for AAA): Last Done: N O RISK FACTOR Next Due: D OCTOR DICRETION C olorectal Cancer Screening (Colonoscopy, FOBT, FIT, Cologuard): Last Done: 3 years ago per patient Next Due: N O LONGER AGE APPROPRIATE L ronald Cancer Screening (Low Dose Chest CT): Last Done: N ON SMOKER Next Due: D OCTOR DISCRETION F roberto Vaccine: Last Done: 1 . Next Due: 1 . H ep B Vaccine (if applicable): Last Done: U NKNOWN Next Due: N O LONGER AGE APPROPRIATE P neumonia Vaccine (Prevnar 13): Last Done: 1 . Next Due: sAhish DAMON COMPLETED P neumonia Vaccine (Prevnar 20): Last Done: 1 09/13/2022 . Next Due: S ERSANTIAGO COMPLETED P neumonia Vaccine (Pneumovax 23): Last Done: 0 09/16/2008 . Next Due: Ashish DAMON COMPLETED S HINGRIX (Shingles Vaccine): Last Done: 1 . Next Due: S NELSON COMPLETED T DAP (Tetanus Vaccine): Last Done: U NKNOWN Next Due: N O LONGER AGE APPROPRIATE Z OSTAVAX (Shingles Vaccine): Last Done: 0 07/31/2009 . Next Due: S ERIES COMPLETED C OVID 19 Vaccine: Last Done: 1 . Next Due: Ashish DAMON COMPLETED EDAPS: E cho: Last Done: . Next Due: . * Follow Up: 1 Year (Reason: annual) * Images * Examination/General Examinat ion New/../Foot Exam * Sign off status: Completed true * Provider: Cleve Jung MD Date: 0 09/09/2024 Generated for Kobi burgos/Tiffanie/eTransmitting on: 0 12/05/2024 12:12 PM EDT History and Physical Notes * HPI (History of Present Illness) Category Sub-Category Detail Notes Depression Screening PHQ-9 Little inte rest or pleasure in doing things: Not at all Feeling down, depressed, or hopeless: No t at all Trouble falling or staying asleep, or sl eeping too much: Not at all Feeling tired or having little energy: N ot at all Poor appetite or overeating: Not at all Feeling bad about yourself o r that you are a failure, or have let yourself or your family down: Not at all Trouble concentrating on thi ngs, such as reading the newspaper or watching television: Not at all Moving or speaking so slowly that other people could have noticed; or the opposite, being so fidgety or restless that you have been moving around a lot more than usual: Not at all Thoughts that you would be b pavan off or of hurting yourself in some way: Not at all Total Score: 0 Time Spent on Depression Screening: Numb er of minutes spent on screening test:: 2 . COPD COPD Questionnaire During the 4 weeks, how much of the time did you feel short of breath?: None of the time (0) Do you ever cough up any stuff, such a s mucus or phlegm?: No, Never (0) Please select the answer tian t best describes you in the past 12 months, I do less than I used to because of my breathing problems.: Strongly disagree (0) Have you smoked at least 100 cigarettes in your ENTIRE LIFE?: Yes (2) How old are you?: Age 70 + (2) Total Score: 4 Do you currently smoke or have smoked in the past?: Yes For how many years have you smoked?: 15 yrs On an average how many cigarettes did you smoke per day?: 1 Pack On an average how many cigarettes did yo u smoke per day?: 20 [facility] Functional Assessment H ow often does your physical health interfere with your daily activities?: Almost Never Hearing: Hearing Aids or Device Vision: Contacts Pain Assessment/Controlled S ubstance Prescribing Are you currently experiencing pain of any kind?: No Are you currently under pain management? : No Fall Risk Assessment Have you fallen in the past year?: No Do you worry about falling?: No Do you feel unsteady when standing or wa lking?: No Do you use any assistive devices?: No Time up and Go Test (TUG): Performed Total time to complete test in seconds:: 9.83 DME Do you use a DME company?: No [employer] Cognitive Assessment Do you have any concern s about your memory?: No Do any of your friends or family have an y concerns about your memory?: No (Use MiniCog for patients 65 -84 yrs and SLUMS for patients >85 yrs in addition to above): . Activities of Daily Living ( ADL)/Instrumental ADL Current physical activity as compared to last year?: Decreased Do you require assistance with:: no assi stance needed Do you have leakage/incontinence issues? : None Advance Care Planning Do you have Advanc ed Directives, Living Will, or Surrogate Decision Letter?: Yes Is there a copy in the patient's record?: No Mini-Cog Scoring Word Recall: 2 (0-3) Clock Draw: 2 (0: if abnormal, 2: if normal) Total Score: 4 (3-word recall with normal clock = Pass, 1-2 word recall with normal clock = Pass, 1-2 word recall with abnormal clock = Fail, 0 word recall = Fail) Coordination of Care Providers and Specialists D o you have other providers/specialists?: Yes TAPS 1 Screening TAPS 1 In the PAST 12 MONTHS, how often have you used any tobacco products?: Never In the PAST 12 MONTHS, how o ften have you had 5 or more drinks containing alcohol in one day? One standard drink is about 1 small glass of wine (5 oz), 1 beer (12 oz), or 1 single shot of liquor.: Never (Males Only) In the PAST 12 MONTHS, how o ften have you had 4 or more drinks containing alcohol in one day? One standard drink is about 1 small glass of wine (5 oz), 1 beer (12 oz), or 1 single shot of liquor.: (Females Only) In the PAST 12 MONTHS, how o ften have you used any drugs including marijuana, cocaine or crack, heroin, methamphetamine (crystal meth), hallucinogens, ecstasy/MDMA?: Never In the PAST 12 MONTHS, how o ften have you used any prescription medications just for the feeling, more than prescribed or that were not prescribed for you? Prescription medication that may be used this way: Opiate pain relievers (for example, OxyContin, Vicodin, Percocet, Methadone) Medications for anxiety or sleeping (for example, Xanax, Ativan, Klonopin) Medications for ADHD (for example, Adderall or Ritalin): Never If any of the above question s are positive or patient is on opiates or BZDs please proceed to SUDS template: . In the PAST 12 MONTHS, how o ften have you had 5 or more drinks (IF MALE) or 4 or more drinks (IF FEMALE) containing alcohol in one day? One standard drink is about 1 small glass of wine (5 oz), 1 beer (12 oz), or 1 single shot of liquor.: Never Time Spent on Alcohol Screening: Number of minut es spent on screening test:: 2 . Examination Category Sub-Category Detail Notes General Examination New GENERAL APPEARANCE: Aler t, cooperative, well developed and well nourished, no acute distress SKIN: Good turgor, normal texture, warm, dry, no rashes appreciated HEENT: HEAD: Normocephalic/ atraumatic, EARS: hearing grossly intact, external ears and canals normal, EYES: Clear conjuctiva, Pupils Equal, Round, Reactive to Light (PERRL), NOSE: Inferior turbinates normal, no nasal congestion, THROAT: no oropharyngeal inflammation, swelling, exudates or lesions NECK/THYROID: Supple, no lymphaden opathy, no mass, no thyromegaly, non-tender, normal range of motion RESPIRATORY: Nonlabored, clear to auscultation bilaterally, no rhonchi, no wheezes or crackles CARDIOVASCULAR: Regular rate and rhy thm, normal S1S2, no S3, S4, murmur or rub ABDOMEN: Soft, non-tender, no n-distended, no organomegaly, no masses, bowel sounds are normal EXTREMITIES: No clubbing, cyanosi s, or edema NEUROLOGIC EXAM: Alert and oriented x 3, CN's II-XII grossly intact, no gross motor or sensory deficit .. Overall: Normal examinati on Skin: no discoloration, na ils well kept Vascular: Pedal pulses present bilat Musuloskeletal: WNL Monofilament: Normal PSYCH: Behavior and affect normal, follows simple commands, no hallucinations MUSCULOSKELETAL: Normal gait and stat ion
--- OUTSIDE RECORDS SUMMARY | 2024-12-05 11:13 | XMS_ITS | Data Portability ---
Author Organization [facility] - Adeline Singh, Telehealth Address [address], [address] [place] [address] Care Team Providers Care Human Resources Executive Name Role Phone EVY ZELAYA Primary Care Provider Assessment Encounter Date Assessment Date Assessment LastModified by Organization Details LastModified Time 02/06/2017 02/06/2017 Actinic keratoses - precancerous diagnosis reviewed. cryo therapy x 17 sites treated: scalp, forehead, forearms, dorsal hands discussed efudex vs PDT vs LN. pt elects LN for fastest healing as golfs year round neoplasm - biopsy site: R forearm ddx: atypical nevus vs SK Seborrheic keratoses - diagnosis reviewed. Pt reassured. benign nevi-not suspicious history of nonmelanoma skin cancer-no evidence of recurrence rec request past recs from Dr Romeo causey in 6 mo Not available 02/06/2017 22:45:38 12/07/2017 12/07/2017 allergic contact dermatitis, eyelids and chest/abdomen pt reports past bx showed allergic contact dermatitis he notes he requested old records this am to be sent to me rec stop all lotions and cleansers rec change to vanicream soap and lotion change to ALL free and clear detergent HCT 1% cr BID x 1-2 wks eyelids TMC 0.1 cr BID x 2 wks chest and abdomen rec f/u with Dr Nino for patch testing Not available 12/10/2017 21:54:39 01/01/2019 01/01/2019 Actinic keratoses - precancerous diagnosis reviewed. cryo therapy x 8 sites treated: forehead, R dorsal hand, L dorsal hand Inflamed SK , asymptomatic, L forearm discussed no rx Seborrheic keratoses - diagnosis reviewed. Pt reassured. excoriation R forearm, no primary lesion present rec allow to heal rec call/rtc if recurs history of nonmelanoma skin cancer-no evidence of recurrence fbse in 1 yr Not available 01/06/2019 19:37:26 12/07/2020 12/07/2020 Inflamed and crusted SKs, R cheek and L cheek-Discussed benign. Discussed treatment options of no rx vs LN pt elects LN x 2 rec fbse 06/2021 Not available 12/07/2020 11:17:59 Plan of Treatment Reminders Order Date Submit Date Provider Last Modified By Organization Details Last Modified Time Details Appointments None recorded. Lab pathology, skin 2016 017 [facility] (Pathology Department), [address], [place], [address], 23:46:06 Referral None recorded. Procedures None recorded. Surgeries None recorded. Imaging None recorded. Medication Orders triamcinolo ne acetonide 0.1 % topical cream 2017 018 [email or web address] [facility][id number], [address] [place], [address], 9 13:55:29 Patient TargetsNo targets recorded. Patient Instructions Encounter Date Encounter Id Patient Instructions Last Modified By Organization Details Last Modified Time 12/07/2017 [id number] Topical steroids should not be used buttermaker due to risk of thinning the skin and stretch castrejon. Topical steroids used around the eye may cause thinning of the skin, cataracts and glaucoma. Use only for a short time. Not available 12/07/2017 17:31:19 Reason for Referral None Reported. Results Created Date Observation Date Name Description Value Unit Range Abnormal Flag Note LastModifiedBy Organization Detail LastModifiedTime Result Notes None recorded. 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 Procedures Surgical History Date Name Laterality Status Provider Name and Address Organization Details Recorded Time 1 Cryosurgery benign lesions 1 completed Adeline Valdez MD [address] [place] [address], [address], [place], [address], [facility] Valdez MD 12/07/2020 11:18:07 9 Cryosurgery aks completed Adeline Valdez MD [address] [place] [address], [address], [place], [address], [facility] Valdez MD 01/06/2019 19:37:35 7 Biopsy completed Adeline Valdez MD [address] [place] [address], [address], [place], [address], [facility] Valdez MD 02/06/2017 22:45:33 7 Cryosurgery aks completed Adeline Valdez MD [address] [place] [address], [address], [place], [address], [facility] Valdez MD 02/06/2017 22:46:59 Imaging Results None recorded. Procedure Notes None recorded. Medical Equipment None Reported. Allergies No known drug allergies Medications Name Sig Start Date Stop Date Status Note LastModified by Organization Details LastModified Time amoxicillin 500 mg capsule 01/01 completed Not Available Not Available Not Available silver sulfadiazin e 1 % topical cream 01/01 completed Not Available Not Available Not Available prednisone 10 mg tablet 01/01 completed Not Available Not Available Not Available clindamycin HCl 300 mg capsule 01/01 completed Not Available Not Available Not Available azithromyci n 250 mg tablet 12/07 completed Not Available Not Available Not Available metoprolol succinate ER 50 mg tablet,exte nded release 24 hr active Not Available Not Available Not Available hydrocodone 5 mg-acetamin ophen 325 mg tablet 01/01 completed Not Available Not Available Not Available meloxicam 15 mg tablet TAKE 1 TABLET BY MOUTH EVERY DAY active Not Available Not Available No t Available sulfamethox azole 800 mg-trimetho prim 160 mg tablet 02/06 completed Not Available Not Available Not Available triamcinolo ne acetonide 0.1 % topical cream APPLY A THIN LAYER TO THE AFFECTED AREA(S) BY TOPICAL ROUTE 2 TIMES PER DAY x 2 wks to the affected areas on the chest and abdomen 01/01 completed Not Available Not Available Not Available Lipitor 20 mg tablet Take 1 tablet every day by oral route. 01/01 completed Not Available Not Available Not Available cyproheptad ine 4 mg tablet 01/01 completed Not Available Not Available Not Available hydrocortis one-acetic acid 1 %-2 % ear drops 01/01 completed Not Available Not Available Not Available cephalexin 500 mg capsule TAKE ONE CAPSULE BY MOUTH FOUR TIMES DAILY NEEDED 12/07 completed Not Available Not Available Not Available betamethaso ne dipropionat e 0.05 % topical cream active Not Available Not Available Not Available betamethaso ne, augmented 0.05 % topical ointment 01/01 completed Not Available Not Available Not Available hydrocortis one 2.5 % topical cream 02/06 completed Not Available Not Available Not Available pravastatin 20 mg tablet active Not Available Not Available Not Available mupirocin 2 % topical ointment 01/01 completed Not Available Not Available Not Available ketoconazol e 2 % topical cream 01/01 completed Not Available Not Available Not Available fluticasone propionate 50 mcg/actuati on nasal spray,suspe nsion 01/01 completed Not Available Not Available Not Available Pramosone 2.5 %-1 % lotion 01/01 completed Not Available Not Available Not Available ramipril 10 mg capsule active Not Available Not Available N ot Available amoxicillin 875 mg-potassiu m clavulanate 125 mg tablet 01/01 completed Not Available Not Available Not Available tobramycin 0.3 %-dexametha sone 0.1 % eye drops,suspe nsion INSTILL 1 DROP TO THE RIGHT EYE TID active Not Available Not Available No t Available neomycin-po lymyxin-hyd rocort 3.5 mg-10,000 unit/mL-1 % ear drops,susp 01/01 completed Not Available Not Available Not Available clobetasol 0.05 % lotion 01/01 completed Not Available Not Available Not Available chlorhexidi ne gluconate 0.12 % mouthwash 01/01 completed Not Available Not Available Not Available ProAir HFA 90 mcg/actuati on aerosol inhaler INHALE 2 PUFFS BY MOUTH EVERY 6 HOURS NEEDED FOR WHEEZING active Not Available Not Available No t Available Breo Ellipta 100 mcg-25 mcg/dose powder for inhalation INHALE 1 PUFF BY MOUTH DAILY. RINSE MOUTH WITH WATER AFTER USE. DO NOT SWALLOW active Not Available Not Available No t Available Fluzone High-Dose 9223-2120 (PF) 180 mcg/0.5 mL intramuscul ar syringe 01/01 completed Not Available Not Available Not Available Proctosol HC 2.5 % topical cream perineal applicator 01/01 completed Not Available Not Available Not Available Vitals None Recorded Social History Question Answer Notes LastModified by Organizat ion Details LastModified Time Tobacco Smoking Status Former Smoker [facility] Pepper MD 02/06/2017 12:35:33 What Is Your Level Of Alcohol Consumption? Moderate To Heavy Information not available 02/06/2017 In The 14 Days Before Symptom Onset, Have You Had Close Contact With A Laboratory-confir med COVID-19 While That Case Was Ill? No [email or web address] Information not available 12/07/2020 In The 14 Days Before Symptom Onset, Have You Had Close Contact With A Person Who Is Under Investigation For COVID-19 While That Person Was Ill? No [email or web address] Information not available 12/07/2020 Have You Been To An Area Known To Be High Risk For COVID-19? No [email or web address] Information not available 12/07/2020 Do You Or Have You Ever Used E-cigarettes Or Vape? Never Used Electronic Cigarettes [email or web address] Information not available 12/07/2020 Does Patient Have Any Fever, Cough, Sore Throat Or New Shortness Of Breath? No [email or web address] Information not available 12/07/2020 What Was The Date Of Your Most Recent Tobacco Screening? 12/07/2020 [email or web address] Information not available 12/07/2020 Do You Or Have You Ever Used Smokeless Tobacco? Never Used Smokeless Tobacco [email or web address] Information not available 12/07/2020 Sun Exposure Frequent Information not available 02/06/2017 Do You Use Sunscreen Routinely? Yes Information not available 02/06/2017 Tanning Bed Exposure No Information not available 02/06/2017 How Many Years Have You Smoked Tobacco? 13 Information not available 02/06/2017 Sex: Unknown Functional Status None recorded. Mental Status None recorded. Family History Relationship Description Onset Age of this Age Resolved Age Notes LastModified by Organization Details LastModified Time Mother Hypertensive disorder Not available 2016 12:35:26 Medical History Condition Response Diabetes N Bleeding Disorder N Arthritis N Hyperthyroidism N Defibrillator N Cancer N Stroke N Asthma Y Hypothyroidism N Lupus N HIV/AIDS N Pacemaker N Anemia N Psoriasis N Hepatitis N Heart Disease N Hypertension Y Past Encounters Encounter ID Performer Location Encounter Start Date Encounter Closed Date Diagnosis/Indication Diagnosis SNOMED-CT Code Diagnosis ICD10 Code Diagnosis Note [id number] Adeline Valdez MD Main Office [address] [place] [address] 7 02/06/2017 12:11:20 02/06/2017 12:42:54 Neoplasm of uncertain behavior of skin 77048857 D48.5 Actinic keratosis 007 L57.0 Senile hyperkeratosis 39 6079823 L82.1 History of malignant neoplasm of skin excluding melanoma 749550081 Z85.828 [id number] Adeline Valdez MD Main Office [address] [place], [place] [address] 7 12/07/2017 16:31:49 12/07/2017 17:30:02 Allergic contact dermatitis 287813668 L23.9 [id number] Adeline Valdez MD Main Office [address] [place] [address] 7 01/01/2019 13:46:11 01/01/2019 14:59:35 Actinic keratosis 593343240 L57.0 Inflamed s eborrheic keratosis 104243028 L82.0 Senile hyperkeratosis 39 7943797 L82.1 History of malignant neoplasm of skin excluding melanoma 928117638 Z85.828 [id number] Adeline Valdez MD Main Office [address] [address] 12/07/2020 11:04:49 12/07/2020 11:19:16 Inflamed seborrheic keratosis 603081995 L82.0 Health Concerns Section Related Observation LastModified by Organization Detai ls LastModified Time None Recorded Concern Status LastModified by Organization Details LastModified Time None Recorded Advance Directives Directive None Recorded Payers Encounter Date Sequence Insurance Name Policy Number Policy Guerrero Covered Member ID Guerrero Member ID Guarantor Name 02/06/2017 1 [place] [id number] Rafael Broom [id number] Rafael Broom 12/07/2017 1 [place] [id number] Rafael Broom [id number] Rafael Broom 01/01/2019 1 [place] [id number] Rafael R Broom [id number] Rafael Broom 12/07/2020 1 [place] Rafael R Broom [id number] Rafael Broom 12/07/2020 2 [employer] Rafael Broom [id number] Rafael Broom Notes Date Note Type Note Provider Name and Address Organization Details Recorded Time 02/06/2017 text/html full body check no concerning spots hx SCC abdomen and one on the R calf-excisions with Dr Hall. last one in 2015. no bleeding spots, changing moles, or sores that don't want to heal. Adeline Valdez MD [address] [place] [address], [address], [place], [address], [facility] - Adeline Valdez MD 02/06/2017 22:47:48 12/07/2017 text/html rash on eyes, ch est, belly and shouldersx [place] [employer] and had a flare with itching chest and abdomen and back.was in [place] with son and did not use any new lotions, no cleansers, no new detergent, did not wash clothing while there.no seasonal allergies-no congestion or sneezing Adeline Valdez MD [address] [facility], [address], [place], [address], [place] Ramona Valdez MD 12/10/2017 21:54:53 01/01/2019 text/html Full Body Check L armX 6 monthsPink in colorNo pain, itching or bleedingNot changing in color or sizeNot treating R armX 6 monthsRed colorNo pain, itching or bleeding - pt picked the area and it bled this morning but he feels it looks similar to the spot on the L forearmNot changing in color or size Not treating Spot on BackWife noticed the spot and told patient that the area looked darkX patient believes his whole lifeNo pain, itching or bleeding had a rough spot on the L cheek picked off before and has not come back. Pt also had some rashes however no longer there.Not changing in color or size Not treatinghas stayed clear. he did see Dr Nino but did not have the allergy testing done as it was not coered with insurance. no other bleeding spots, changing moles, or sores that don't want to heal. Adeline Valdez MD [address] [facility], [address], [place], [address], [facility] Valdez MD 01/06/2019 19:37:59 12/07/2020 text/html COVID-19 protoco l. Patient and any caregivers present screened to confirm no fever, cough, loss of taste or smell, or shortness of breath. Patient and any caregivers deny current diagnosis or pending testing of COVID-19 or recent exposure to any individual with known or current testing for COVID-19. Patient and any caregivers masked during visit. spot L cheekx 3-4 monthsnot symptoms--spot does not go awaynot treating also with rough area that is bothersome on the R cheek he notes he had a fbse in June in [place]-no concerns Adeline Valdez MD [address] [facility], [address], [place], [address], [facility] Valdez MD 12/07/2020 11:18:19
== END 2024-12-05 10:56 | disposition home or self-care (01) ==
PROVIDERS: Visit Provider Otolaryngology
DX: H90.3 Sensorineural hearing loss, bilateral (principal); H93.8X1 Other specified disorders of right ear; Z97.4 Presence of external hearing-aid
CPT/HCPCS: 92557; 92567